=== PATIENT | female | born 1965 | race Caucasian/White ===

== ENCOUNTER → 2016-10-16 10:01 | Outpatient (CLI) | payer MEDICAID ==
[2016-05-17 15:13] VITALS: BMI 43.6
[~2016-10-16 10:01] MED LIST: CELEXA20 MG PO; COZAAR100 MG PO; CYCLOBENZAPRINE10 MG PO; FLUTICASONE PRO16 GM NASAL; FUROSEMIDE20 MG PO; GLUCOPHAGE500 MG PO; HCTZ25 MG PO; HYDROCODONE-APA1 TAB PO; NEURONTIN 400400 MG PO; OMEPRAZOLE20 M1 PO; PRAVASTATIN SOD10 MG PO; PROAIR HFA8.5 GM INH; REQUIP1 MG PO
[2016-10-16 12:45] LABS: ERYTHROCYTE SEDIMENTATION RATE 21 mm/hr (0-30)
[2016-10-17 08:18] LABS: IMMUNOGLOBULIN E 14 IU/mL (0-100)
[2016-10-17 09:19] LABS: ANA REFLEX - DIRECT Negative (Negative)
[2016-10-18 10:18] LABS: ANGIOTENSIN CONVERTING ENZYME 67 U/L (14-82)
[2016-10-20 17:08] LABS: FUNGAL - ASP FLAVUS Negative (Neg:<1:1); FUNGAL - ASP NIGER Negative (Neg:<1:1); FUNGAL - ASPER FUMIGATUS Negative (Neg:<1:1); FUNGAL - COCCIDIOIDES Negative (Neg:<1:1)
== END | disposition home or self-care (01) ==
LOC: D.RT 10:01
PROVIDERS: Internal Medicine Pulmonary Disease
DX: R51 Headache (principal); H53.9 Unspecified visual disturbance

== ENCOUNTER → 2016-10-22 08:33 | Outpatient (CLI) | payer MEDICAID ==
[2016-05-17 15:13] VITALS: BMI 43.6
[2016-10-22 09:56] LABS: ALBUMIN 3.2 g/dL (3.4-5.0); BILIRUBIN - DIRECT 0.11 mg/dL (0.00-0.30); BILIRUBIN - INDIRECT 0.23 mg/dL (0.00-1.00); BILIRUBIN - TOTAL 0.34 mg/dL (0.2-1.3); PROTEIN - SERUM 7.1 g/dL (6.4-8.2)
== END | disposition home or self-care (01) ==
LOC: D.LAB 08:33 → D.US 10:00 → D.LAB 11-23 09:45 → D.US 11-23 10:00
PROVIDERS: Internal Medicine Gastroenterology
DX: K76.0 Fatty (change of) liver, not elsewhere classified (principal)

== ENCOUNTER 2019-04-08 02:11 | Inpatient (IN) | payer MEDICAID ==
[2019-04-08] VITALS (25 sets, daily range): BP systolic 117–183; BP diastolic 51–90; BMI 51.8
[~2019-04-08] VITALS: Ht 160 cm; Wt 125.5 kg
--- NOTE | ~2019-04-08 | HEMODYNAMI ---
PATIENT:DERIC CARBALLO MEDICAL RECORD: [id number] : 63 LOCATION:[facility] ADMISSION DATE: 04/08/19 Generatedon:04/09/201913:23 Patient name: DERIC CARBALLO Patient #: [id number] SSN: D OB: 1965 Date of study: 04/09/2019 Page: Of Hemodynamic Procedure Report Patient Data Patient Demographics Procedure consent was obtained First Name: DERIC Gender: Female Last Name: HARIS : 1965 [facility] Initial: GALLO Age: 53 year(s) Patient #: [id number] Race: Unknown Additional ID: [id number] Contact details Address: [address] [place] [address] State: [place] City: [place] Zip code: [address] Past Medical History Allergies Allergen Reaction Date Comments Reported Codeine 04/08/2019 Other allergy 04/08/2019 gabapentin, blue dye Codeine 04/09/2019 Other allergy 04/09/2019 blue dye, gabapentin Admission Admission Data Admission Date: 04/08/2019 Admission Time: 6:06 Room #: D.CV04 Height (in.): 63 BSA: 2.27 (m2) Height (cm.): 160.02 BMI: 51.72 (kg/m2) Weight (lbs.): 292 Weight (kg.): 132.45 Procedure Procedure Types Cath Procedure Peripheral Cath Diagnostic Procedure Abd/Extremity Extremities Right Upper Ext. Arteriogram Procedure Description Procedure Date Procedure Date: 04/09/2019 Procedure Start Time: 13:01 Procedure Staff Name Function Joseph Chaves MD Performing Physician Raffy Ferrer RT Scrub Laurita Pierce RN Nurse Darya Anand RN Nurse Alcira Kay RT Scrub Procedure Data Cath Procedure Fluoroscopy Diagnostic fluoroscopy Total fluoroscopy Time: 2.2 time: 2.2 min min Diagnostic fluoroscopy Total fluoroscopy dose: 495 dose: 495 mGy mGy Contrast Material Contrast Material Type Amount (ml) Isovue 300 55 Entry Location Entry Primary Successful Side Size Upsize Upsize Entry Closure Succ essful Closure Location (Fr) 1 (Fr) 2 (Fr) Remarks Device Remarks Femoral Right Angio-VIP artery 6Fr Hemodynamics Rest BSA: 2.27 (m2) O2 Consumption: Estimated: 308.72 (ml/min) O2 Consumption indexed : Estimated:136 (ml/min/m) Pre Cath Intra NCS Post Cath Procedure Log Time Note 12:29:07 Patient Height : 63 inches 12:29:07 Patient Weight : 292 lbs 12:34:23 Time tracking: Regular hours (M-F 7:00 - 5:00) 12:37:20 Plan of Care:Hemodynamics will remain stable., Cardiac rhythm will remain stable., Comfort level will be maintained., Respiratory function will remain adequate., Patient/ family verbilizes understanding of procedure., Procedure tolerated without complication., Recovers from procedure without complications.. 12:37:27 Patient received from CVICU to IR On ventilator. Tansferred to table in Supine position. 12:37:44 Signed procedure consent form obtained from guardian. 12:37:55 H&P Date Dictated: 04/09/2019 Within 30 days and on chart.. 12:38:00 Family in waiting room. 12:38:04 Patient NPO since Midnight. 12:38:13 Patient allergic to Codeine 12:38:35 Patient allergic to Other allergyblue dye, gabapentin 12:39:00 Is the patient allergic to Iodine/contrast media? No. 12:39:03 Is patient on blood thinner?Yes 12:42:04 Patient diabetic? Yes. 12:42:11 If diabetic: On Metformin? No 12:42:13 If diabetic: On Metformin? No 12:42:16 - 12:42:16 ----Pre-sedation anethsthesia assessment.---- 12:42:19 Previous problem with sedation/anesthesia? No ? 12:42:22 Snore? Yes 12:42:24 Sleep apnea? Yes 12:42:26 Deviated septum? No 12:42:29 Opens mouth fully? Yes 12:42:31 Sticks out tongue? Yes 12:42:36 Airway obstruction? Yes copd 12:42:41 Dentures? No ? 12:42:44 - 12:43:13 Pre procedure: right radial pulse Doppler 12:43:32 Pre procedure: right ulnar pulse Doppler 12:44:00 IV patent on arrival in left antecubital with D5/.45%NaCl at [facility]. 12:44:15 Right groin area was prepped with betadine and draped in sterile fashio n 12:44:20 - 13:00:40 Physician arrived 13:00:41 --------ALL STOP TIME OUT------ 13:00:42 Final Timeout: patient, procedure, and site verified with staff and physician. All members of the team are in agreement. 13:01:02 Procedure started. 13:01:02 Full Disclosure recording started 13:01:14 GLIDE CATHETER 5FR Bar Gauger And Lubricator Tender H1 100cm (CG513) opened to sterile field. 13:01:15 GLIDE WIRE ANGLE 180cm ([id number]) opened to sterile field. 13:01:27 TORQUE DEVICE PLASTIC .038 ( TD01) opened to sterile field. 13:14:04 Angiography was performed. 13:15:10 ANGIOSEAL-VIP PLUS 6 FR opened to sterile field. 13:15:29 Sheath removed intact; hemostasis achieved with Angio-VIP 6Fr to the Right Femoral artery. 13:15:29 A sheath was inserted into the Right Femoral artery 13:16:50 AMPLATZ Super Stiff 75cm wire ([id number]) opened to sterile field. 13:20:10 Procedure ended.(Physican Out) 13:20:25 Fluoroscopy time 02.20 minutes. 13:20:30 Fluoroscopy dose: 495 mGy 13:20:30 Flurop Dose total: 495 13:20:51 Contrast amount:Isovue 300 55ml. 13:22:46 Procedure and supply charges have been captured, reviewed, submitted an d are correct. 13:22:56 Report given to CVICU. Device Usage Item Name Manufacture Quantity Catalog Hospital Part Current Minima l Lot# / Number Charge Number Stock Stock Serial# Code GLIDE [place] 1 [id number] [id number] 200922 5 CATHETER 5FR Scientific Bar Gauger And Lubricator Tender H1 100cm (CG513) GLIDE WIRE Terumo 1 [id number] 116036 223265 5 ANGLE 180cm (QO5055) TORQUE DEVICE [place] 1 TD01 615156 632790 694911 5 PLASTIC .038 Scientific ( TD01) ANGIOSEAL-VIP [place] 1 147597 390110 772424 702285 5 PLUS 6 FR AMPLATZ Super [place] 1 [id number] 530098 052977 618170 5 Stiff 75cm Scientific wire ([id number]) Signature Audit Cobb Stage Time Signature Unsigned Intra-Procedure 04/09/2019 Alcira Kay 1:23:53 PM RT(R) [place] [id number] [place] [address]
--- NOTE | ~2019-04-08 | HEMODYNAMI ---
PATIENT:DERIC CARBALLO MEDICAL RECORD: [id number] : 63 LOCATION:[facility] ADMISSION DATE: 04/08/19 Generatedon:04/08/201916:10 Patient name: DERIC CARBALLO Patient #: [id number] SSN: D OB: 1965 Date of study: 04/08/2019 Page: Of Hemodynamic Procedure Report Patient Data Patient Demographics Procedure consent was obtained First Name: DERIC Gender: Female Last Name: HARIS : 1965 [facility] Initial: GALLO Age: 53 year(s) Patient #: [id number] Race: Unknown Additional ID: [id number] Contact details Address: [address] [place] [address] State: [place] City: [place] Zip code: [address] Past Medical History Allergies Allergen Reaction Date Comments Reported Codeine 04/08/2019 Other allergy 04/08/2019 gabapentin, blue dye Admission Admission Data Admission Date: 04/08/2019 Admission Time: 6:06 Room #: [facility]04 Height (in.): 63 BSA: 2.27 (m2) Height (cm.): 160.02 BMI: 51.72 (kg/m2) Weight (lbs.): 292 Weight (kg.): 132.45 Procedure Procedure Types Cath Procedure Peripheral Cath Diagnostic Procedure Abd/Extremity Extremities Right Upper Ext. Arteriogram Procedure Description Procedure Date Procedure Date: 04/08/2019 Procedure Start Time: 9:25 Procedure Staff Name Function Raffy Ferrer RT Monitor Joseph Chaves MD Performing Physician aLurita Pierce RN Nurse Allan Mary CRNA Additional personnel PAULINE POOLE RT Scrub Procedure Data Cath Procedure Fluoroscopy Diagnostic fluoroscopy Total fluoroscopy Time: time: 13.1 min 13.1 min Diagnostic fluoroscopy Total fluoroscopy dose: 425 dose: 425 mGy mGy Contrast Material Contrast Material Type Amount (ml) Isovue 300 100 Entry Location Entry Primary Successful Side Size Upsize Upsize Entry Closure Succes sful Closure Location (Fr) 1 (Fr) 2 (Fr) Remarks Device Remarks Femoral Right artery Diagnostic catheters Device Type Used For End Catheter Placement Merit ULTRA BOLUS FLUSH 5Fr 90CM catheter ([id number]) Procedure Medications Medication Administration Route Dosage Heparin Flush Bag added to field 3 bags (1000units/500ml NS) Lidocaine 1% added to field 20 Fentanyl I.V. 25 mcg Versed I.V. 0.5 mg Versed I.V. 0.5 mg Hemodynamics Rest BSA: 2.27 (m2) O2 Consumption: Estimated: 228.93 (ml/min) O2 Consumption indexed : Estimated:100.85 (ml/min/m) Heart Rate: 81 (bpm) Snapshots Pre Cath Intra NCS Post Cath Vital Signs Time Heart Resp SPO2 etCO2 NIBP (mmHg) Rhythm Pain Sedation Rate (ipm) (%) (mmHg) Status Level (bpm) 9:10:12 80 16 94 55.9 150/73(109) NSR 0 (11) 10(A) , No pain 9:15:11 111 15 92 61.2 Measuring NSR 0 (11) 10(A) , No pain 9:15:44 79 11 95 62.7 125/75(95) NSR 0 (11) 10(A) , No pain 9:19:55 81 16 93 56.6 132/72(106) NSR 0 (11) 10(A) , No pain 9:24:07 80 14 92 30.9 124/73(105) NSR 0 (11) 10(A) , No pain 9:26:43 82 11 89 33.9 129/76(93) NSR 0 (11) 10(A) , No pain 9:30:59 83 13 92 60.5 126/73(93) NSR 0 (11) 10(A) , No pain 9:35:13 83 15 89 71.7 138/76(103) NSR 0 (11) 10(A) , No pain 9:39:33 86 16 82 52.1 140/70(113) NSR 0 (11) 10(A) , No pain 9:43:55 86 13 86 57.3 135/66(111) NSR 0 (11) 10(A) , No pain 9:48:11 84 16 89 67.1 145/69(100) NSR 0 (11) 10(A) , No pain 9:52:30 86 17 90 79.2 152/74(108) NSR 0 (11) 10(A) , No pain 9:56:48 88 18 82 78.5 151/74(113) NSR 0 (11) 10(A) , No pain 10:01:10 88 16 88 66.5 137/71(99) NSR 0 (11) 10(A) , No pain 10:05:30 88 15 93 57.4 124/74(95) NSR 0 (11) 10(A) , No pain 10:09:42 90 27 91 49.1 137/81(104) NSR 0 (11) 10(A) , No pain 10:14:00 92 16 70 1.5 136/76(120) NSR 0 (11) 10(A) , No pain 10:18:16 91 13 87 0 146/82(108) NSR 0 (11) 10(A) , No pain 10:22:28 93 19 89 0 137/75(102) NSR 0 (11) 10(A) , No pain 10:26:44 91 15 94 18.8 139/74(100) NSR 0 (11) 10(A) , No pain 10:30:56 90 14 96 3 132/73(94) NSR 0 (11) 10(A) , No pain 10:35:10 91 14 96 0 139/87(106) NSR 0 (11) 10(A) , No pain 10:39:18 96 0 110/58(78) NSR 0 (11) 10(A) , No pain 10:40:37 95 0 98/51(70) NSR 0 (11) 10(A) , No pain 10:42:55 96 97/54(74) NSR 0 (11) 10(A) , No pain 10:46:34 96 98/38(63) NSR 0 (11) 10(A) , No pain 10:50:34 No Cuff NSR 0 (11) 10(A) , No pain 10:54:33 No Cuff NSR 0 (11) 10(A) , No pain Medications Time Medication Route Dose Verified Delivered Reason Notes Effe ctiveness by by 9:09:28 Heparin Flush added 3 Joseph Ruiz used for Bag to bags Chaves Chaves procedure (1000units/500ml field MD VILLARREAL NS) 9:09:40 Lidocaine 1% added 20ml Joseph garland local to vial Chaves Chaves anesthetic field MD VILLARREAL 9:28:49 Fentanyl I.V. 25 Joseph Shay for mcg Chavesblaise Pierce RN sedation 9:47:51 Versed I.V. 0.5 Joseph Shay for mg Chavesblaise Pierce RN sedation 10:11:28 Versed I.V. 0.5 Joseph Shay for mg Chaves Stan TSAI sedation Procedure Log Time Note 8:58:25 Raffy Ferrer RT (R) (CV) sent for patient. Start room use. 8:58:42 Time tracking: Regular hours (M-F 7:00 - 5:00) 8:58:46 Plan of Care:Hemodynamics will remain stable., Cardiac rhythm will remain stable., Comfort level will be maintained., Respiratory function will remain adequate., Patient/ family verbilizes understanding of procedure., Procedure tolerated without complication., Recovers from procedure without complications.. 8:58:52 Patient received from ParaShoot II to IR Alert and oriented. Tansferred to table in Supine position. 8:58:59 Use device set IR Diagnostic 8:59:00 Tegaderm 4 x 4 (1626W) opened to sterile field. 8:59:01 Sterile Angiographic Pack opened to sterile field. 8:59:02 Bag Decanter () opened to sterile field. 8:59:03 ACIST Hand Control (60450) opened to sterile field. 8:59:03 ACIST Manifold (06039) opened to sterile field. 8:59:04 ACIST Syringe (89720) opened to sterile field. 8:59:07 Correct patient and procedure confirmed by team. 8:59:08 Signed procedure consent form obtained from patient. 8:59:10 ECG and BP/O2 sat monitors applied to patient. 8:59:11 Full Disclosure recording started 8:59:15 - 8:59:22 H&P Date Dictated: 04/08/2019 Within 30 days and on chart.. 8:59:24 Pre-procedure instructions explained to patient. 8:59:25 Pre-op teaching completed and patient verbalized understanding. 8:59:26 Family in waiting room. 8:59:28 Patient NPO since Midnight. 8:59:35 Is the patient allergic to Iodine/contrast media? No. 8:59:37 Is patient on blood thinner?No 8:59:40 Patient diabetic? Yes. 8:59:43 If diabetic: On Metformin? No 8:59:45 ----Pre-sedation anethsthesia assessment.---- 8:59:45 - 9:00:07 Previous problem with sedation/anesthesia? No ? 9:00:10 Snore? Yes 9:00:13 Sleep apnea? Yes 9:00:15 Deviated septum? No 9:00:18 Opens mouth fully? Yes 9:00:20 Sticks out tongue? Yes 9:00:37 Airway obstruction? Yes copd and asthma 9:00:41 Dentures? Yes ? 9:05:40 Pre procedure: right dorsailis pedis pulse Doppler 9:05:44 Pre procedure: right posterior tibial pulse Doppler 9:05:55 IV patent on arrival in left antecubital with 0.9% NaCl at [facility]. 9:05:58 Alarms reviewed by R. N. 9:05:58 Sharps counted by scrub and verified by R.N. 9:06:03 Right groin area was prepped with chlora-prep and draped in sterile fashion 9:09:06 Vital chart was started 9:09:28 Heparin Flush Bag (1000units/500ml NS) 3 bags added to field was administered by Joseph Chaves MD; used for procedure; 9:09:40 Lidocaine 1% 20ml vial added to field was administered by Joseph Chaves MD; for local anesthetic; 9:12:19 Baseline sample Acquired. 9:23:27 Vital chart was stopped 9:24:10 Physician arrived 9:24:11 Final Timeout: patient, procedure, and site verified with staff and physician. All members of the team are in agreement. 9:24:11 --------ALL STOP TIME OUT------ 9:24:13 Right groin site verified by team. 9:24:17 Maximum allowable Isovue 300 dose 300ml. Physician notified. (300ml for normal creatinines. For patients with creatinine of 1.7 or higher multiply weight(kg) x 5 divided by creatinine.) 9:24:21 Fire Safety Assessment: A--An alcohol-based skin anteseptic being used preoperatively., C--Open oxygen or nitrous oxide is being used. 9:24:25 Sedation plan: IV Moderate Sedation Medication:Versed, Fentanyl 9:25:08 Procedure started. 9:25:11 Local anesthetic to right femoral artery with Lidocaine 1% by Joseph Chaves MD.INITIAL ACCESS ONLY 9:25:26 A sheath was inserted into the Right Femoral artery 9:25:30 DOC .035 wire (S22697) opened to sterile field. 9:25:30 SHEATH 5FR [place] (SFI370) opened to sterile field. 9:25:30 PERCUTANEOUS ENTRY 19GA needle opened to sterile field. 9:25:31 TUBING Contrast Injection High Pressure (SJV459V) opened to sterile field. 9:25:34 A Merit ULTRA BOLUS FLUSH 5Fr 90CM catheter ([id number]) was advanced over the wire and used for . 9::40 Vital chart was started 9:28:49 Fentanyl 25 mcg I.V. was administered by Laurita Pierce RN; for sedation ; 9:33:26 GLIDE WIRE ANGLE 180cm (UK6468) opened to sterile field. 9:33:26 GLIDE CATHETER 5FR Portable Grinding Machine Operator H1 100cm (CG513) opened to sterile field. 9:35:34 GLIDE WIRE MERIT Angled 260cm ([id number]) opened to sterile field. 9:42:45 Cook RAABE 6FR. 90cm guide sheath opened to sterile field. 9:43:15 TORIBIO 260 wire (V99299) opened to sterile field. 9:47:51 Versed 0.5 mg I.V. was administered by Laurita Pierce RN; for sedation; 9:52:59 CHOICE PT Extra Support J 300cm guide wire ([id number]) opened to steril e field. 9:53:12 SPIDER EMBOLIC PROTECTION DEVICE 4MM ([id number]) opened to sterile field. 9:54:00 ANGIOJET 4Fr XMI Catheter ([id number]) opened to sterile field. 10:11:28 Versed 0.5 mg I.V. was administered by Laurita Pierce RN; for sedation; 10:29:44 Procedure ended.(Physican Out) 10:34:11 Fluoroscopy time 13.10 minutes. 10:34:16 Fluoroscopy dose: 425 mGy 10:34:16 Flurop Dose total: 425 10:34:20 Sharps counted by scrub and verified by R.N. 10:34:23 Insertion/operative site no bleeding no hematoma. 10:34:27 Post-op/insertion site Right Femoral artery dressed using a 4 x 4 and Tegaderm. 10:34:30 Post right femoral artery:stable 10:34:33 Post Procedure Pulses reassessed and unchanged 10:51:12 Contrast amount:Isovue 300 100ml. 10:54:32 Patient needs reinforcement of post procedure teaching. 10:54:56 Report given to CVICU. 10:55:07 Patient transfered to CVICU with Bed. 10:55:34 Vital chart was stopped 10:55:38 Full Disclosure recording stopped 16:06:16 Patient Height : 63 inches 16:06:16 Patient Weight : 292 lbs Device Usage Item Name Manufacture Quantity Catalog Number Hospital Part Current Minimal Lot# / Charge Number Stock Stock Serial# Code Tegaderm 4 x 4 3M 1 [id number] [id number] 422287 5 (1626W) Sterile Cardinal 1 [id number] 979757 078333 5 Angiographic Health Pack Bag Decanter Microtek 1 409228 11397 241555 5 () Medical Inc. ACIST Manifold Acist 1 64482 548769 988642 764808 5 (89273) Medical Systems Inc ACIST Hand Acist 1 28053 060968 291126 204388 5 Control (16918) Medical Systems Inc ACIST Syringe Acist 1 08631 212912 728821 663434 20 (16233) Medical Systems Inc PERCUTANEOUS Cook Medical 1 S00024 083090 714913 5 [id number] ENTRY 19GA needle SHEATH 5FR Terumo 1 BIJ820 305308 288242 363204 5 [place] (ZPJ313) DOC .035 wire Cook Medical 1 V49647 182239 687030 5 (F02049) TUBING Contrast Merit 1 [id number] 800175 239924 608608 5 Injection High Medical Pressure (AAG559X) Merit ULTRA Merit 1 [id number] 795184 481135 5 BOLUS FLUSH 5Fr Medical 90CM catheter ([id number]) GLIDE CATHETER [place] 1 CG513 441481 515999 5 5FR Portable Grinding Machine Operator Scientific H1 100cm (CG513) GLIDE WIRE Terumo 1 XY3398 889804 019899 625636 5 ANGLE 180cm (WS3242) GLIDE WIRE Merit 1 [id number] 510341 027333 721270 5 [id number] MERIT Angled Medical 260cm ([id number]) Cook RAABE 6FR. Cook Medical 1 O59296 900846 193063 5 90cm guide sheath TORIBIO 260 wire Cook Medical 1 E41744 372389 84343 918851 5 (K32313) CHOICE PT Extra [place] 1 [id number] 806423 661483 307438 5 [id number] Support J 300cm Scientific guide wire ([id number]) SPIDER EMBOLIC Medtronic 1 [id number]-155-320 039708 975952 5 PROTECTION DEVICE 5MM ([id number]) ANGIOJET 4Fr [place] 1 211473-441 967195 664307 561514 1 [facility] Catheter to be ([id number]) Signature Audit [place] Stage Time Signature Unsigned Intra-Procedure 04/08/2019 Raffy Akbar [place] RT 10:55:27 AM [place] RT (R) (CV) 04/08/2019 (R) (CV) 4:06:01 PM Intra-Procedure 04/08/2019 Raffy 4:10:08 PM [place] RT (R) (CV) Signatures Monitor : Raffy Signature : [place] RT Date : Time : [place] [address] [place] [address]
--- NOTE | ~2019-04-08 | HEMODYNAMI ---
PATIENT:DERIC CARBALLO MEDICAL RECORD: [id number] : 63 [facility] AD[facility] DATE: 04/08/19 Generatedon:04/08/201915:49 Patient name: DERIC CARBALLO Patient #: [id number] SSN: D OB: 1965 Date of study: 04/08/2019 Page: Of Hemodynamic Procedure Report Patient Data Patient Demographics Procedure consent was obtained First Name: DERIC Gender: Female Last Name: HARIS : 1965 [facility] Initial: GALLO Age: 53 year(s) Patient #: [id number] Race: Unknown Additional ID: [id number] Contact details Address: [address] [place] [address] State: [place] City: [place] Zip code: [address] Past Medical History Allergies Allergen Reaction Date Comments Reported Codeine 04/08/2019 Other allergy 04/08/2019 gabapentin, blue dye Admission Admission Data Admission Date: 04/08/2019 Admission Time: 6:06 Room #: [facility]04 Height (in.): 63 BSA: 2.27 (m2) Height (cm.): 160.02 BMI: 51.72 (kg/m2) Weight (lbs.): 292 Weight (kg.): 132.45 Procedure Procedure Types Cath Procedure Peripheral Cath Diagnostic Procedure Abd/Extremity Extremities Right Upper Ext. Arteriogram Procedure Description Procedure Date Procedure Date: 04/08/2019 Procedure Start Time: 15:27 Procedure Staff Name Function Joseph Chaves MD Performing Physician Alcira Kay RT Garnetter Darya Anand RN Nurse Raffy Ferrer RT Scrub Procedure Data Cath Procedure Fluoroscopy Diagnostic fluoroscopy Total fluoroscopy Time: 0.6 time: 0.6 min min Diagnostic fluoroscopy Total fluoroscopy dose: 27 dose: 27 mGy mGy Contrast Material Contrast Material Type Amount (ml) Isovue 300 35 Procedure Medications Medication Administration Route Dosage Heparin Flush Bag added to field 1 bags (1000units/500ml NS) Hemodynamics Rest BSA: 2.27 (m2) O2 Consumption: Estimated: 219.97 (ml/min) O2 Consumption indexed : Estimated:96.9 (ml/min/m) Heart Rate: 71 (bpm) Snapshots Pre Cath Intra NCS Post Cath Vital Signs Time Heart Resp SPO2 etCO2 NIBP (mmHg) Rhythm Pain Sedation Rate (ipm) (%) (mmHg) Status Level (bpm) 15:13:21 69 19 100 0 Measuring NSR 0 (11) 10(A) , No pain 15:14:12 68 19 100 0 161/84(116) NSR 0 (11) 10(A) , No pain 15:18:32 67 30 100 0 166/92(125) NSR 0 (11) 10(A) , No pain 15:22:58 68 19 100 0 170/92(120) NSR 0 (11) 10(A) , No pain 15:27:29 68 19 100 0 169/88(122) NSR 0 (11) 10(A) , No pain 15:31:55 68 15 100 0 172/91(127) NSR 0 (11) 10(A) , No pain 15:36:25 66 19 100 0 165/82(112) NSR 0 (11) 10(A) , No pain 15:40:52 66 19 100 0 171/94(115) NSR 0 (11) 10(A) , No pain 15:45:18 67 19 100 0 170/94(113) NSR 0 (11) 10(A) , No pain Medications Time Medication Route Dose Verified Delivered Reason Notes Effec tiveness by by 15:27:21 Heparin Flush added 1 Joseph Ruiz used for Bag to bags Chaves Chaves procedure (1000units/500ml field MD VILLARREAL NS) Procedure Log Time Note 15:09:38 Patient Height : 63 inches 15:09:43 Patient Weight : 292 lbs 15:10:22 Time tracking: Regular hours (M-F 7:00 - 5:00) 15:11:06 Patient received from CVICU to IR On ventilator. Tansferred to table in Supine position. 15:11:09 Correct patient and procedure confirmed by team. 15:11:30 ECG and BP/O2 sat monitors applied to patient. 15:11:32 Vital chart was started 15:11:34 Baseline sample Acquired. 15:11:35 Full Disclosure recording started 15:11:45 Signed procedure consent form obtained from patient. 15:12:02 - 15:12:09 H&P Date Dictated: 04/08/2019 Within 30 days and on chart.. 15:12:11 Pre-procedure instructions explained to patient. 15:12:11 Pre-op teaching completed and patient verbalized understanding. 15:12:14 Family in waiting room. 15:12:16 Patient NPO since Midnight. 15:12:35 Patient allergic to Codeine 15:13:07 Patient allergic to Other allergygabapentin, blue dye 15:13:11 Is the patient allergic to Iodine/contrast media? No. 15:13:14 Is patient on blood thinner?Yes 15:13:16 Patient diabetic? Yes. 15:13:19 If diabetic: On Metformin? No 15:13:21 - 15:13:22 ----Pre-sedation anethsthesia assessment.---- 15:13:51 Previous problem with sedation/anesthesia? No ? 15:14:02 Snore? Yes 15:14:19 Sleep apnea? Yes 15:14:33 Deviated septum? No 15:14:36 Opens mouth fully? Yes 15:14:39 Sticks out tongue? Yes 15:14:53 Airway obstruction? Yes copd 15:14:58 Dentures? No ? 15:15:06 Pre procedure: right radial pulse Doppler 15:15:11 Pre procedure: right ulnar pulse Doppler 15:15:28 Pre procedure: right dorsailis pedis pulse Doppler 15:15:36 Physician arrived 15:15:44 IV patent on arrival in left antecubital with D5/.45%NaCl at [facility]. 15:15:51 Right groin area was prepped with betadine and draped in sterile fashio n 15:15:55 - 15:15:59 Use device set IR Diagnostic 15:16:01 Tegaderm 4 x 4 (1626W) opened to sterile field. 15:16:02 Sterile Angiographic Pack opened to sterile field. 15:16:03 Bag Decanter () opened to sterile field. 15:16:13 Final Timeout: patient, procedure, and site verified with staff and physician. All members of the team are in agreement. 15:16:14 - 15:17:31 Procedure started. 15:27:21 Heparin Flush Bag (1000units/500ml NS) 1 bags added to field was administered by Joseph Chaves MD; used for procedure; 15:27:53 Angiography was performed. 15:31:52 TORIBIO 260 wire ([id number]) opened to sterile field. 15:32:02 SHEATH 6FR [place] ([id number]) opened to sterile field. 15:36:47 SUTURE ETHILON 2-0 BLK MONO FS opened to sterile field. 15:36:56 Tegaderm 6 x 8 (1628) opened to sterile field. 15:37:19 Contrast amount:Isovue 300 35ml. 15:37:24 Procedure ended.(Physican Out) 15:37:49 Fluoroscopy dose: 27 mGy 15:37:49 Flurop Dose total: 27 15:39:11 Fluoroscopy time 00.60 minutes. 15:39:23 Procedure and supply charges have been captured, reviewed, submitted an d are correct. 15:48:44 Vital chart was stopped 15:48:46 Report given to CVICU. 15:48:52 Patient transfered to CVICU with Bed. Device Usage Item Name Manufacture Quantity Catalog Hospital Part Current Minimal Lot# / Number Charge Number Stock Stock Serial# Code Tegaderm 4 x 3M 1 [id number] 5 4 (1626W) Sterile Cardinal 1 [id number] [id number] 384952 5 Angiographic Health Pack Bag Decanter Microtek 1 2001S 187926 85381 [id number] 5 (2001S) [employer] Inc[employer] TORIBIO 260 [employer] 1 [id number] 674009 40178 855338 5 [id number] wire ([id number]) SHEATH 6FR Terumo 1 [id number] 877992 555766 556808 40 [place] (QIH580) SUTURE Ethicon 1 [id number] 466307 5 ETHILON 2-0 BLK MONO FS Tegaderm 6 x 3M 1 1628 265024 341016 5 8 (1628) Signature Audit [place] Stage Time Signature Unsigned Intra-Procedure 04/08/2019 Alcira Kay 3:49:15 PM RT(R) [facility] [address] [place] [address]
[2019-04-08] MEDS ORDERED: INCRUSE ELLI62.5 MCG INH (02:18)
[2019-04-08] MEDS ORDERED: ADVAIR 250/501 DISK INH (02:18)
[2019-04-08] MEDS ORDERED: TESSALON PERLE100 MG PO (02:19)
[2019-04-08 03:03] LABS: BASOPHILS 0.2 % (0-2); EOSINOPHILS 2.2 % (0-7); HEMATOCRIT 45.3 % (36.0-48.0); HEMOGLOBIN 13.7 g/dL (12-16); IMMATURE GRANULOCYTES 0.3 % (0-5); LYMPHOCYTES 22.1 % (15-50); MCH 25.6 pg (26.0-34.0); MCHC 30.2 g/dL (31.0-37.0); MCV 84.5 fL (80.0-100.0); MEAN PLATELET VOLUME 8.4 fL (7.4-10.4); MONOCYTES 7.7 % (2-11); NEUTROPHILS 67.5 % (40-80); PLATELET COUNT 248 10x3/uL (130-400); RBC 5.36 10x6/uL (4.00-5.40); RDW 18.2 % (11.5-14.5); WBC 12.1 10x3/uL (4.8-10.8)
[2019-04-08 03:17] LABS: ALKALINE PHOSPHATASE 153 U/L (46-116); ALT (SGPT) 30 U/L (10-68); BILIRUBIN - TOTAL 0.38 mg/dL (0.2-1.3); CALC OSMOLALITY 279 mosm/kg (275-300); CALCIUM 8.5 mg/dL (8.5-10.1); CARBON DIOXIDE 36.4 mmol/L (21.0-32.0); CHLORIDE - SERUM 99 mmol/L (98-107); CREATININE - SERUM 0.8 mg/dL (0.6-1.3); PROTEIN - SERUM 7.2 g/dL (6.4-8.2); SODIUM 137 mmol/L (136-145); UREA NITROGEN 9 mg/dL (7-18); eGFR NON AFRICAN AMERICAN 79 mL/min (90-120)
[2019-04-08 03:19] LABS: GLUCOSE 232 mg/dL (74-106)
[2019-04-08 03:47] LABS: APTT 28.5 SECONDS (22.8-39.4); INR 1.05 (0.85-1.17); PROTIME 13.2 SECONDS (11.6-15.0)
--- NOTE | 2019-04-08 07:18 | NUR ---
REPORT RECIEVED FROM EULALIO CLAY FROM THE ER. OBED IS TO REASSESS THE MORPHINE AND CHECK THE PATIENTS BLOOD SUGAR AND THEN HAVE THE PATIENT BROUGHT TO THE ROOM.
--- NOTE | 2019-04-08 13:18 | NUR ---
1100 RECEIVED IN BED BY IR STAFF. INTUBATED AND SEDATED. L FOREARM AND L HAND PERIPHERAL WITH NS, HEPARIN, AND PROPOFOL. R RADIAL PULSE UNABLE TO PALPATE OR DOPPLER. R GROIN SHEATH WITH CATH FLOW INFUSING. SITE SOFT, NO SIGNS OF BLEEDING OR HEMATOMA. RLE PULSES PALPABLE AND DOPPLERED. 1200 DR QUINTERO AND ERLIN AWARE OF CONSULTS. 1230 OG TUBE PLACED TO LIWS VERIFIED WITH AUSCULTATION. QUIGLEY PLACED WITH STERILE TECHNIQUE X1 ATTEMPT. YELLOW URINE RETURNED. 1300 FAMILY HERE AND UPDATED BY DR QUINTERO. DENIES QUESTIONS.
[2019-04-08 13:42] LABS: BASOPHILS 0.2 % (0-2); EOSINOPHILS 2.5 % (0-7); HEMOGLOBIN 13.8 g/dL (12-16); IMMATURE GRANULOCYTES 0.5 % (0-5); MCH 25.1 pg (26.0-34.0); MCHC 29.4 g/dL (31.0-37.0); MCV 85.5 fL (80.0-100.0); MEAN PLATELET VOLUME 8.7 fL (7.4-10.4); MONOCYTES 9.4 % (2-11); NEUTROPHILS 59.4 % (40-80); PLATELET COUNT 241 10x3/uL (130-400); RDW 18.3 % (11.5-14.5)
[2019-04-08 13:47] LABS: APTT 28.4 SECONDS (22.8-39.4); INR 1.05 (0.85-1.17); PROTIME 13.2 SECONDS (11.6-15.0)
--- NOTE | 2019-04-08 15:03 | NUR ---
PT TO IR WITH IR STAFF AND RT
[2019-04-08 17:13] LABS: BASOPHILS 0.1 % (0-2); EOSINOPHILS 0.2 % (0-7); HEMATOCRIT 45.6 % (36.0-48.0); HEMOGLOBIN 13.8 g/dL (12-16); IMMATURE GRANULOCYTES 0.3 % (0-5); LYMPHOCYTES 7.3 % (15-50); MCH 25.5 pg (26.0-34.0); MCHC 30.3 g/dL (31.0-37.0); MCV 84.1 fL (80.0-100.0); MEAN PLATELET VOLUME 8.7 fL (7.4-10.4); MONOCYTES 1.9 % (2-11); NEUTROPHILS 90.2 % (40-80); PLATELET COUNT 216 10x3/uL (130-400); RBC 5.42 10x6/uL (4.00-5.40); RDW 18.3 % (11.5-14.5)
[2019-04-08 17:22] LABS: APTT 27.8 SECONDS (22.8-39.4); INR 1.07 (0.85-1.17); PROTIME 13.4 SECONDS (11.6-15.0)
--- NOTE | 2019-04-08 17:30 | NUR ---
PER DR KERN HEPARIN GTT MOVED TO PIV IN L HAND AND PRESSURE BAG WITH HEPARIN PLACED TO R GROIN FOR A LINE, GOOD WAVEFORM, NO HEPARIN IN PICC LINE AND TO START HEPARIN PROTOCOL WITH RESULTS OF PTT FROM 1700. DAUGHTER TO BE IN UNIT AT 0900 IN AM TO SPEAK WITH DR KERN PER DR KERN AND DAUGHTER AWARE.
--- NOTE | 2019-04-08 18:00 | NUR ---
RETURNED TO ROOM 1615
--- NOTE | 2019-04-08 18:07 | EC ---
PATIENT:DERIC CARBALLO DATE OF SERVICE: 04/08/19 SEX: F MEDICAL RECORD: [id number] DATE OF : 63 LOCATION:[place] [address] AGE OF PATIENT: 53 ADMISSION DATE: 04/08/19 REFERRING PHYSICIAN: INTERPRETING PHYSICIAN: JAILYN ZHANG MD ECHOCARDIOGRAM REPORT ECHO CHARGES 4 ECHO COMPLETE Date: 04/08/19 CLINICAL DIAGNOSIS: ASSESS FOR LEFT ATRIAL CLOT ECHOCARDIOGRAPHIC MEASUREMENTS (adult normal given) AC root (d.<3.7cm) 3.2 cm LV Septum d (<1.2 cm> 1.2 cm Valve Excursion 1.9 cm LV Septum (systole) 1.5 cm Left Atria (s.<4.0cm> 3.8 cm LVPW d(<1.2cm) 1.8 cm RV (d.<2.3cm) 2.9 cm LVPW (sytole) 1.9 cm LV diastole(<5.6CM) 5.1 cm MV E-F(>70mm/sec) cm LV systole 3.6 cm LVOT Diameter 2.0 cm MV exc.(>10mm) 1.9 cm Est.ejection fraction (50-75%) % DOPPLER: LVIT cm/sec A 63.0 cm/sec E 93.0 cm/sec LA cm/sec RVSP mmHg LVOT 102 cm/sec AOP1/2T 15 m/s Asc. Ao 128 cm/sec RVOT 58 cm/sec RA cm/sec PA 79 cm/sec AV Gradient Peak 6.59 mmHg AV Mean 3.39 mmHg AV Area 2.4 cm MV Gradient Peak 5.52 mmHg MV Mean 2013 mmHg MV Area cm COMMENTS: Forklift Operator: Nannette MARK Mental Tester: 1 Dr. Zhnag TAPE# PACS Pericardial Effusion N DATE OF SERVICE: 04/08/2019 FINDINGS: 1. Left ventricular chamber size is within normal limits. Left ventricular systolic function is normal. Overall ejection fraction is estimated at 55% to 60%. 2. Left atrium, right atrium, and right ventricular chamber sizes are within normal limit. 3. Valvular structures have normal structure and motion. 4. Doppler interrogation reveals no significant valvular insufficiency or ECHOCARDIOGRAM REPORT [id number] DERIC CARBALLO stenosis. Pulmonary systolic pressure is estimated at 15 mmHg. 5. No cardiac source of emboli. TRANSINT:[id number] Voice Confirmation ID: [id number] DOCUMENT ID: [id number] JAILYN ZHANG MD at 1807 CC: [id number] DICTATION DATE: 04/08/19 162 MEAT COUNTER WORKER: 04/08/19 1728 ADM IN [facility] [address] [place] [address]
--- NOTE | 2019-04-08 19:20 | NUR ---
PT RECEIVED ON VENT AND SEDATED, TOLERATING WELL AT THIS TIME. VSS. QUIGLEY PATENT WITH CONCENTRATED URINE NOTED. PICC TO LEFT UPPER ARM. DRESSING TO RIGHT GROIN C/D/I WITH SHEETH TO A-LINE. PULSES DOPPLERED. WILL CONTINUE TO OBSERVE.
--- NOTE | 2019-04-08 22:20 | NUR ---
PT CONTINUES VENT WITH SEDATION WITH NO CHANGES NOTED TO VENT OR SEDATION MEDICATION. HEPARIN CONTINUES TO LEFT HAND. NO S/S OF DISTRESS. WILL CONTINUE TO OBSERVE.
[2019-04-08 23:36] LABS: HEMATOCRIT 45.6 % (36.0-48.0); HEMOGLOBIN 13.8 g/dL (12-16); LYMPHOCYTES 9.6 % (15-50); MCH 25.1 pg (26.0-34.0); MCHC 30.3 g/dL (31.0-37.0); MCV 83.1 fL (80.0-100.0); MEAN PLATELET VOLUME 8.2 fL (7.4-10.4); NEUTROPHILS 89.1 % (40-80); PLATELET COUNT 288 10x3/uL (130-400); RBC 5.49 10x6/uL (4.00-5.40); RDW 17.6 % (11.5-14.5); WBC 10.7 10x3/uL (4.8-10.8)
--- NOTE | 2019-04-08 23:38 | NUR ---
PT CONTINUES VENT WITH SEDATION. REASSESSMENT COMLETED SEE FLOW SHEET. CBC AND PT/INR DRAWN AND SENT TO LAB, WAITING RESULTS. NO S/S OF DISTRESS. WILL CONTINUE TO OBSERVE.
[2019-04-08 23:49] LABS: APTT 25.9 SECONDS (22.8-39.4); INR 1.06 (0.85-1.17); PROTIME 13.3 SECONDS (11.6-15.0)
[2019-04-09] VITALS (28 sets, daily range): BP systolic 95–159; BP diastolic 52–83; BMI 51.7
--- NOTE | 2019-04-09 02:09 | NUR ---
PT RECEIVED CHG BATH GIVEN. LINENS CHANGED. ASSIST X3 NURSES TO MAINTAIN STRAIGHT LEGS DUE TO RIGHT GROIN SHEATH. PT TOLERATED WELL. WILL CONTINUE TO OBSERVE.
--- NOTE | 2019-04-09 03:25 | NUR ---
REASSESSMENT COMPLETED, SEE FLOW SHEET. WILL CONTINUE TO OBSERVE.
[2019-04-09 05:21] LABS: BASOPHILS 0 % (0-2); EOSINOPHILS 0 % (0-7); HEMATOCRIT 43.5 % (36.0-48.0); HEMOGLOBIN 13.5 g/dL (12-16); IMMATURE GRANULOCYTES 0.4 % (0-5); LYMPHOCYTES 7.5 % (15-50); MCH 25.4 pg (26.0-34.0); MCV 81.8 fL (80.0-100.0); MEAN PLATELET VOLUME 8.4 fL (7.4-10.4); MONOCYTES 2.1 % (2-11); RBC 5.32 10x6/uL (4.00-5.40); RDW 18.1 % (11.5-14.5)
[2019-04-09 05:28] LABS: PLATELET COUNT 211 10x3/uL (130-400); WBC 13.6 10x3/uL (4.8-10.8)
[2019-04-09 05:41] LABS: APTT 26.9 SECONDS (22.8-39.4); INR 1.05 (0.85-1.17); PROTIME 13.2 SECONDS (11.6-15.0)
[2019-04-09 05:50] LABS: ALBUMIN 2.8 g/dL (3.4-5.0); ALKALINE PHOSPHATASE 133 U/L (46-116); ALT (SGPT) 31 U/L (10-68); BILIRUBIN - TOTAL 0.39 mg/dL (0.2-1.3); CALCIUM 8.9 mg/dL (8.5-10.1); CARBON DIOXIDE 29.1 mmol/L (21.0-32.0); CHLORIDE - SERUM 98 mmol/L (98-107); CREATININE - SERUM 0.8 mg/dL (0.6-1.3); GLUCOSE 217 mg/dL (74-106); MAGNESIUM - SERUM 1.9 mg/dL (1.8-2.4); PROTEIN - SERUM 6.6 g/dL (6.4-8.2); SODIUM 135 mmol/L (136-145); eGFR NON AFRICAN AMERICAN 79 mL/min (90-120)
[2019-04-09 05:58] LABS: CALC OSMOLALITY 276 mosm/kg (275-300); UREA NITROGEN 12 mg/dL (7-18)
--- NOTE | 2019-04-09 07:52 | NUR ---
LYING IN BED ON VENT AT THIS TIME. NO ACUTE DISTRESS NOTED. VSS. LS DIMINISHED. OGT TO LOW INT SUCTIONING. RT GROIN SHEATH SITE CDI NO S/S EDEMA, REDNESS, DRAINAGE. PT OPENS EYES WHEN SPOKEN TO. WILL CONTINUE PLAN OF CARE.
--- NOTE | 2019-04-09 09:56 | NUR ---
WILL ADMIN DALIRESP WHEN RECIEVE FROM PHARMACY.
--- NOTE | 2019-04-09 09:57 | NUR ---
PTS DAUGHTER AT BEDSIDE, HAS SPOKEN WITH PHYSICIAN, DENIES ANY QUESTIONS OR CONCERNS REGARDING PROCEDURE FOR TODAY. VSS. WILL CONTINUE PLAN OF CARE.
--- NOTE | 2019-04-09 10:50 | NUR ---
HOLDING PO MEDS UNTIL AFTER PROCEDURE.
--- NOTE | 2019-04-09 10:58 | NUR ---
IV TO LT HAND PATENT, ALSO ABLE TO DRAW BLOOD WHEN ASSESSING ITS PATENCY, HEPARIN GTT CURRENTLY RUNNING THROUGH IT. NO S/S INFILTRATION OR LEAKING. NO ACUTE DISTRESS NOTED. WILL CONTINUE PLAN OF CARE.
[2019-04-09 11:33] LABS: BASOPHILS 0 % (0-2); EOSINOPHILS 0 % (0-7); HEMATOCRIT 42.1 % (36.0-48.0); IMMATURE GRANULOCYTES 0.4 % (0-5); LYMPHOCYTES 8.5 % (15-50); MCH 25.4 pg (26.0-34.0); MCHC 30.9 g/dL (31.0-37.0); MCV 82.2 fL (80.0-100.0); MEAN PLATELET VOLUME 8.6 fL (7.4-10.4); MONOCYTES 4.9 % (2-11); NEUTROPHILS 86.2 % (40-80); PLATELET COUNT 224 10x3/uL (130-400); RBC 5.12 10x6/uL (4.00-5.40); WBC 16.8 10x3/uL (4.8-10.8)
[2019-04-09 11:42] LABS: APTT 31.1 SECONDS (22.8-39.4); INR 1.07 (0.85-1.17); PROTIME 13.4 SECONDS (11.6-15.0)
--- NOTE | 2019-04-09 11:51 | NUR ---
WBC INCREASED TODAY FROM 13.6 AT [address] PAEZ NURSE NOTIFIED OF THIS.
--- NOTE | 2019-04-09 12:25 | NUR ---
LEFT WITH IR AT THIS TIME WITH IR NURSING STAFF AND RESPIRATORY THERAPY. ON MOBILE VENT MONITORED ON MOBILE MONITOR. FAMILY AT BEDSIDE. NO ACUTE DISTRESS NOTED. VSS. PULSES PRESENT TO ALL EXTREMITIES.
--- NOTE | 2019-04-09 13:37 | NUR ---
RETURNED FROM IR AT THIS TIME. RT GROIN SITE CDI. PERIPHERAL PULSES PALPABLE. NO ACUTE DISTRESS NOTED. WILL CONTINUE PLAN OF CARE.
--- NOTE | 2019-04-09 13:51 | NUR ---
ICE PLACED TO PUNCTURE SITE.
--- NOTE | 2019-04-09 14:07 | NUR ---
DR DOWNING PAGED REGARDING CONSULT.
--- NOTE | 2019-04-09 14:08 | NUR ---
DR DOWNING NOTIFIED OF CONSULT.
--- NOTE | 2019-04-09 16:20 | NUR ---
LYING IN BED ON VENT AT THIS TIME. NO ACUTE DISTRESS NOTED. FAMILY AT BEDSIDE. PT TURNED Q2H. ORAL CARE PROVIDED Q2H. RT LEG TO BE KEPT STRAIGHT FOR 4 HOURS PER ORDERS. VSS. WILL CONTINUE PLAN OF CARE.
[2019-04-09 17:31] LABS: BASOPHILS 0.1 % (0-2); EOSINOPHILS 0 % (0-7); HEMATOCRIT 41.7 % (36.0-48.0); HEMOGLOBIN 12.8 g/dL (12-16); IMMATURE GRANULOCYTES 0.3 % (0-5); LYMPHOCYTES 6.6 % (15-50); MCH 25.2 pg (26.0-34.0); MCHC 30.7 g/dL (31.0-37.0); MCV 82.1 fL (80.0-100.0); PLATELET COUNT 234 10x3/uL (130-400); RBC 5.08 10x6/uL (4.00-5.40); RDW 18.1 % (11.5-14.5); WBC 17.2 10x3/uL (4.8-10.8)
[2019-04-09 17:34] LABS: INR 1.06 (0.85-1.17); PROTIME 13.3 SECONDS (11.6-15.0)
--- NOTE | 2019-04-09 17:38 | MORECARE ---
CASE MANAGEMENT DISCHARGE SUMMARY PATIENT: DERIC CARBALLO UNIT: [id number] ADM DATE: 04/08/19 AGE: 53 : 63 SEX: F ROOM/BED: [facility] AUTHOR: LUDWIG KILLIAN PHYSICIAN: REFERRING PHYSICIAN: AP DANIELSON MD DATE OF SERVICE: 04/09/19 Discharge Plan Patient Name: DERIC CARBALLO [facility] [facility] 1965 Planned Disposition: Anticipated Discharge Date: Discharge Date: Expected LOS: Initial Reviewer: [email or web address] Initial Review Date: 04/08/2019 Generated: 04/09/19 6:38 pm DCPIA - Discharge Planning Initial Assessment Updated by [email or web address]: Linda Todd on 04/09/19 5:38 pm * How many steps to enter\exit or inside your home? * PCP [facility] * [facility] * Preadmission Environment Home Alone * ADLs Independent * Other Equipment HOME 02 (NO PORTABLE), NEBULIZER * List name and contact numbers for known caregivers / representatives who currently or will assist patient after discharge: JARON MICHELLE - [facility]- [phone] * Verbal permission to speak to the caregivers and representatives has been obtained from the patient. N/A * Community resources currently utilized None * Additional services required to return to the preadmission environment? No * Can the patient safely return to the preadmission environment? Yes * Has this patient been hospitalized within the prior 30 days at any hospital? No Patient Name: DERIC CARBALLO Page [phone] at 1738 All edits/amendments must be made on the electronic document DICTATION DATE: 04/09/191737 TRAINING TECHNICIAN: LAVON 04/09/191737 RPT#: [id number] MO DATE: STATUS: ADM IN [facility] [address] [place] [address] END OF REPORT
--- NOTE | 2019-04-09 17:45 | MORECARE ---
CASE MANAGEMENT DISCHARGE SUMMARY PATIENT: DERIC CARBALLO UNIT: [id number] ADM DATE: 04/08/19 AGE: 53 : 63 SEX: F [facility] AUTHOR: CONSTANTIN,DOC PHYSICIAN: REFERRING PHYSICIAN: AP DANIELSON MD DATE OF SERVICE: 04/09/19 Discharge Plan Patient Name: DERCI CARBALLO Facility: [facility]:[place] : 1965 Planned Disposition: Anticipated Discharge Date: Discharge Date: Expected LOS: Initial Reviewer: [email or web address] Initial Review Date: 04/08/2019 Generated: 04/09/19 6:45 pm Comments DCP- Discharge Planning Updated by [email or web address]: Linda Todd on 04/09/19 4:[address] Patient Name: DERIC CARBALLO Admission Status: ER Accout number: [id number] Admission Date: 04-08-2019 : 1965 Admission Diagnosis: Attending: AP DANIELSON Current LOS: 1 Anticipated DC Date: Planned Disposition: Primary Insurance: MEDICAID [place] Discharge Planning Comments: CM met with patient's daughter Starla to complete initial dc planning assessment. Patient is currently sedated and on vent. CM educated Starla on the CM role and verbal consent given by patient to complete assessment. Patient lives at home alone in a camper where she is independent with her care. At discharge patient plans to return home and feels this is a safe discharge. CM discussed availability of home health, rehab services, and medical equipment. Her daughter will be her courier driver home. Patient has a nebulizer and home o2 (uncertain of company) Starla denied known discharge needs at this time. CM will continue to follow and will assist as needed with dc plans/needs. System Manager: Linda Todd DCPIA - Discharge Planning Initial Assessment Updated by [email or web address]: Linda Todd on 04/09/19 5:38 pm * How many steps to enter\exit or inside your home? * PCP [facility]IA * [facility] * Preadmission Environment Home Alone * ADLs Independent * Other Equipment HOME 02 (NO PORTABLE), NEBULIZER * List name and contact numbers for known caregivers / representatives who currently or will assist patient after discharge: JARON Navarro DAUGHTER- [phone] * Verbal permission to speak to the caregivers and representatives has been obtained from the patient. N/A * Community resources currently utilized None * Additional services required to return to the preadmission environment? No * Can the patient safely return to the preadmission environment? Yes * Has this patient been hospitalized within the prior 30 days at any hospital? No Last DP export: 04/09/19 4:38 p Patient Name: DERIC CARBALLO Page [phone] at 1741 All edits/amendments must be made on the electronic document DICTATION DATE: 04/09/191743 FRAME WELDER CARGO UTILITY TRAILERS: LAVON 04/09/191743 RPT#: [id number] DC DATE: STATUS: [facility] [address] [place] [address] END OF REPORT
--- NOTE | 2019-04-09 17:46 | NUR ---
PT HAS BEEN LYING WITH RT LEG STRAIGHT/LYING FLAT FOR THE LAST 4 HOURS PER ORDERS. REPOSITIONING PROVIDED Q2H ORAL CARE PROVIDED Q2H. PERIPERAL PULSES PALPABLE. NO ACUTE DISTRESS NOTED. VSS. WILL CONTINUE PLAN OF CARE.
--- NOTE | 2019-04-09 19:00 | NUR ---
ASSESSMENT COMPLETE. VS STABLE. NO VISUAL CUES OF DISTRESS NOTED. WILL CONTINUE TO MONTIOR.
--- NOTE | 2019-04-09 21:00 | NUR ---
VS STABLE. NO VISUAL CUES OF DISTRESS NOTED. WILL CONTINUE TO MONTIOR.
--- NOTE | 2019-04-09 23:00 | NUR ---
VS STABLE. NO VISUAL CUES OF DISTRESS NOTED. WILL CONTINUE TO MONTIOR.
[2019-04-09 23:02] LABS: BASOPHILS 0.1 % (0-2); EOSINOPHILS 0 % (0-7); HEMATOCRIT 41.7 % (36.0-48.0); HEMOGLOBIN 12.7 g/dL (12-16); IMMATURE GRANULOCYTES 0.3 % (0-5); MCH 24.9 pg (26.0-34.0); MCHC 30.5 g/dL (31.0-37.0); MCV 81.6 fL (80.0-100.0); MEAN PLATELET VOLUME 8.8 fL (7.4-10.4); MONOCYTES 4.3 % (2-11); NEUTROPHILS 90.3 % (40-80); PLATELET COUNT 228 10x3/uL (130-400); RBC 5.11 10x6/uL (4.00-5.40); RDW 18.1 % (11.5-14.5); WBC 17.9 10x3/uL (4.8-10.8)
[2019-04-09 23:15] LABS: APTT 33.5 SECONDS (22.8-39.4); INR 1.02 (0.85-1.17); PROTIME 12.9 SECONDS (11.6-15.0)
[2019-04-10] VITALS (24 sets, daily range): BP systolic 109–156; BP diastolic 58–79
--- NOTE | 2019-04-10 | NUR ---
VS STABLE. NO VISUAL CUES OF DISTRESS NOTED. WILL CONTINUE TO MONTIOR.
[2019-04-10 05:47] LABS: BASOPHILS 0.1 % (0-2); EOSINOPHILS 0 % (0-7); HEMATOCRIT 41.1 % (36.0-48.0); HEMOGLOBIN 12.7 g/dL (12-16); IMMATURE GRANULOCYTES 0.3 % (0-5); LYMPHOCYTES 5.7 % (15-50); MCHC 30.9 g/dL (31.0-37.0); MCV 80.9 fL (80.0-100.0); MONOCYTES 3.5 % (2-11); NEUTROPHILS 90.4 % (40-80); PLATELET COUNT 224 10x3/uL (130-400); RBC 5.08 10x6/uL (4.00-5.40); RDW 18.4 % (11.5-14.5); WBC 18.8 10x3/uL (4.8-10.8)
--- NOTE | 2019-04-10 06:00 | NUR ---
VS STABLE. NO VISUAL CUES OF DISTRESS NOTED. WILL CONTINUE TO MONTIOR.
[2019-04-10 06:25] LABS: ALBUMIN 2.7 g/dL (3.4-5.0); ALKALINE PHOSPHATASE 112 U/L (46-116); ALT (SGPT) 28 U/L (10-68); CALCIUM 8.7 mg/dL (8.5-10.1); CARBON DIOXIDE 23.8 mmol/L (21.0-32.0); CHLORIDE - SERUM 97 mmol/L (98-107); CREATININE - SERUM 0.7 mg/dL (0.6-1.3); GLUCOSE 248 mg/dL (74-106); PROTEIN - SERUM 6.4 g/dL (6.4-8.2); SODIUM 130 mmol/L (136-145); eGFR NON AFRICAN AMERICAN > 90 mL/min (90-120)
[2019-04-10 06:27] LABS: CALC OSMOLALITY 269 mosm/kg (275-300); POTASSIUM - SERUM 4.8 mmol/L (3.5-5.1); UREA NITROGEN 16 mg/dL (7-18)
--- NOTE | 2019-04-10 07:00 | NUR ---
PT RESTING IN BED SEDATED ON VENTILATOR WITH PROPOFOL AND FENTANYL. VENTILATOR PER ORDERED SETTINGS. LEFT UPPER ARM PICC LINE. VSS. ALL PULSES PALPABLE. WILL CONTINUE TO MONITOR
--- NOTE | 2019-04-10 09:00 | NUR ---
PT FAMILY IN ROOM VISITING WITH PATIENT. FAMILY GAVE PATIENT FULL BATH AND SHAVED PATIENT WELL CHANGED GOWN. VSS. PT ATE ALL OF BREAKFAST. NO COMPLAINTS. WILL CONTINUE TO MONITOR
--- NOTE | 2019-04-10 09:30 | NUR ---
NURSE CHANGED OUT PROPOFOL TUBING. TITRATED DOWN TO 35 MCG. WILL CONTINUE TO MONITOR. VSS
--- NOTE | 2019-04-10 11:26 | NUR ---
DR. ANGELA MADE ROUNDS. NO ORDERS GIVEN. PT STABLE SEDATED ON VENTILATOR. STILL TITRATING PROPOFOL TOLERATED. VSS
--- NOTE | 2019-04-10 12:25 | NUR ---
PT WOKE UP AGITATED AND COUGHING OVER VENT. INCREASED FENTANYL TO 175MCG/HR. 3.5ML/HR
--- NOTE | 2019-04-10 13:00 | NUR ---
DR. GRIGSBY CAME BY TO ROUND ON PATIENT. CHANGED VENTILATOR SETTINGS FROM ASSIST CONTROL TO SIMV. PT IS STABLE.
--- NOTE | 2019-04-10 14:17 | NUR ---
APTT LAB 35.1. ADMINISTERED 3000UNIT HEPARIN BOLUS AND INCREASED RATE FROM 1700 TO 1900UNITS/HR ORDERED.
--- NOTE | 2019-04-10 15:30 | NUR ---
GAVE PATIENT FULL HIBBA CLEANSE BATH AND CHANGED ALL LINENS.
--- NOTE | 2019-04-10 17:00 | NUR ---
PT RESTING COMFORTABLY IN BED WITH STABLE VSS SEDATED ON VENT. WAKES TO VOICE.
--- NOTE | 2019-04-10 19:00 | NUR ---
RE-ASSESSMENT COMPLETE. VS STABLE. NO VISUAL CUES OF DISTRESS NOTED. DENIES ANY OTHER NEEDS. WILL CONTINUE TO MONITOR.
[2019-04-11] VITALS (22 sets, daily range): BP systolic 118–159; BP diastolic 53–92
[2019-04-11 00:27] LABS: HEMATOCRIT 39.9 % (36.0-48.0); HEMOGLOBIN 12.2 g/dL (12-16); MCH 25.1 pg (26.0-34.0); MCHC 30.6 g/dL (31.0-37.0); MCV 81.9 fL (80.0-100.0); MEAN PLATELET VOLUME 8.6 fL (7.4-10.4); RBC 4.87 10x6/uL (4.00-5.40); RDW 18.3 % (11.5-14.5); WBC 19.7 10x3/uL (4.8-10.8)
[2019-04-11 06:16] LABS: BASOPHILS 0.1 % (0-2); EOSINOPHILS 0 % (0-7); HEMATOCRIT 41.6 % (36.0-48.0); HEMOGLOBIN 12.5 g/dL (12-16); IMMATURE GRANULOCYTES 0.4 % (0-5); LYMPHOCYTES 5.8 % (15-50); MCH 24.9 pg (26.0-34.0); MCV 82.9 fL (80.0-100.0); MEAN PLATELET VOLUME 8.6 fL (7.4-10.4); MONOCYTES 5.7 % (2-11); PLATELET COUNT 215 10x3/uL (130-400); RBC 5.02 10x6/uL (4.00-5.40); RDW 18.5 % (11.5-14.5); WBC 19.7 10x3/uL (4.8-10.8)
--- NOTE | 2019-04-11 07:00 | NUR ---
REC'D UP IN CHAIR, AWAKE/ALERT. VSS. DENIES ANY NEED AT THIS TIME.
--- NOTE | 2019-04-11 07:00 | NUR ---
REC'D SUPINE, SEDATED ON VENT. TURN SYSTEM PLACED UNDER PT AND REPOSITIONED. DENIES PAIN.
[2019-04-11 07:16] LABS: ALKALINE PHOSPHATASE 111 U/L (46-116); BILIRUBIN - TOTAL 0.38 mg/dL (0.2-1.3); CALCIUM 8.8 mg/dL (8.5-10.1); CARBON DIOXIDE 28.1 mmol/L (21.0-32.0); CHLORIDE - SERUM 99 mmol/L (98-107); CREATININE - SERUM 0.7 mg/dL (0.6-1.3); MAGNESIUM - SERUM 2.2 mg/dL (1.8-2.4); POTASSIUM - SERUM 5.3 mmol/L (3.5-5.1); PROTEIN - SERUM 6.5 g/dL (6.4-8.2); SODIUM 133 mmol/L (136-145); UREA NITROGEN 18 mg/dL (7-18); eGFR NON AFRICAN AMERICAN > 90 mL/min (90-120)
[2019-04-11 07:17] LABS: ALT (SGPT) 45 U/L (10-68); CALC OSMOLALITY 271 mosm/kg (275-300); GLUCOSE 171 mg/dL (74-106)
--- NOTE | 2019-04-11 07:30 | NUR ---
ASSESSED. VSS. NO MOVEMENT SEEN IN PNEUMOVAC UPON C/DB. BREAKFAST SERVED.
--- NOTE | 2019-04-11 08:00 | NUR ---
ASSESSED, VSS, NODS/ SHAKES HEAD APROPRIATELY TO YES/NO QUESTIONS.
--- NOTE | 2019-04-11 09:09 | NUR ---
HEPARIN ADJUSTED PER ORDER. REPOSITIONED. FAMILY IN AND UPDATED.
--- NOTE | 2019-04-11 11:00 | NUR ---
REASSESSED. SEDATION WEANED OVER LAST 1.5 HRS- SEE IV FLOWSHEET. DR CORTEZ IN- ORDER REC'D.
--- NOTE | 2019-04-11 12:47 | NUR ---
DR SEB EL. OETT ADVANCED PER RT.
--- NOTE | 2019-04-11 13:45 | NUR ---
DR QUINTERO ROUNDS NEW CONSULT FOR HEPARIN RESISTANCE.
--- NOTE | 2019-04-11 14:40 | NUR ---
HEPARIN GTT DC'D PER DR QUINTERO.
--- NOTE | 2019-04-11 15:00 | NUR ---
REASSESSED. REMAINS SEDATED.
--- NOTE | 2019-04-11 17:00 | NUR ---
REPOSITIONED, FAMILY AT BEDSIDE.
[2019-04-11 17:10] LABS: INR 1.07 (0.85-1.17); PROTIME 13.4 SECONDS (11.6-15.0)
[2019-04-11 17:14] LABS: ALBUMIN 2.6 g/dL (3.4-5.0); BILIRUBIN - DIRECT 0.18 mg/dL (0.00-0.30); BILIRUBIN - INDIRECT 0.23 mg/dL (0.00-1.00); BILIRUBIN - TOTAL 0.41 mg/dL (0.2-1.3); PROTEIN - SERUM 5.9 g/dL (6.4-8.2)
[2019-04-11 17:28] LABS: APTT < 22.8 SECONDS (22.8-39.4); FIBRINOGEN 257 mg/dL (239-481)
--- NOTE | 2019-04-11 18:10 | NUR ---
PULMOCARE TUBEFEEDING STARTED ORDERED AT 20 ML/HR. ARGATROBAN INFUSION STARTED.
--- NOTE | 2019-04-11 19:00 | NUR ---
SHIFT ASSESSMENT COMPLETE. VS SIGNS STABLE AND AFEBRILE. NO VISUAL CUES OF DISTREDSS NOTED. WILL CONTINUE TO MONITOR.
--- NOTE | 2019-04-11 21:00 | NUR ---
NO VISUAL CUES OF DISTRESS NOTED. MATEO CONTINUE TO MONITOR.
--- NOTE | 2019-04-11 23:00 | NUR ---
REASSESSMENT COMPLETE. NO CHANGES FROM SHIFT ASSESSMENT NOTED. WILL MONITOR.
[2019-04-12] VITALS (24 sets, daily range): BP systolic 116–145; BP diastolic 41–73
--- NOTE | 2019-04-12 01:00 | NUR ---
NO VISUAL CUES OF DISTRESS NOTED. VS STABLE. WILL CONTINUE TO MONITOR.
[2019-04-12 01:18] LABS: HEMOGLOBIN 12.1 g/dL (12-16); MCH 25.1 pg (26.0-34.0); MCHC 30.3 g/dL (31.0-37.0); MCV 82.8 fL (80.0-100.0); MEAN PLATELET VOLUME 8.6 fL (7.4-10.4); RBC 4.83 10x6/uL (4.00-5.40); RDW 18.1 % (11.5-14.5); WBC 16.1 10x3/uL (4.8-10.8)
--- NOTE | 2019-04-12 01:58 | NUR ---
SPOKE WITH DR QUINTERO REGARDING PTT OF 83.9 FOR ARGATROBAN DOSING PROTOCOL. RECIEVED ORDER TO CONTINUE MEDICATION AT CURRENT RATE. CURRENTLY INFUSING @ 5.38 MCG. ORDERED Q 6 PTT PER PROTOCOL. READ BACK FOR CLARIFICATION. WILL CONTINUE TO MONITOR.
--- NOTE | 2019-04-12 03:00 | NUR ---
NO VISUAL CUES OF DISTRESS NOTED. VS STABLE. WILL CONTINUE TO MONITOR.
--- NOTE | 2019-04-12 05:00 | NUR ---
NO VISUAL CUES OF DISTRESS NOTED. VS STABLE. WILL CONTINUE TO MONITOR.
[2019-04-12 06:18] LABS: BASOPHILS 0 % (0-2); EOSINOPHILS 0 % (0-7); HEMATOCRIT 40.1 % (36.0-48.0); IMMATURE GRANULOCYTES 0.5 % (0-5); LYMPHOCYTES 6.7 % (15-50); MCHC 29.9 g/dL (31.0-37.0); MCV 83.5 fL (80.0-100.0); MEAN PLATELET VOLUME 8.8 fL (7.4-10.4); MONOCYTES 5.9 % (2-11); NEUTROPHILS 86.9 % (40-80); PLATELET COUNT 213 10x3/uL (130-400); RDW 18.2 % (11.5-14.5); WBC 15.3 10x3/uL (4.8-10.8)
[2019-04-12 06:26] LABS: ALBUMIN 2.5 g/dL (3.4-5.0); ALKALINE PHOSPHATASE 93 U/L (46-116); ALT (SGPT) 51 U/L (10-68); BILIRUBIN - TOTAL 0.45 mg/dL (0.2-1.3); CALC OSMOLALITY 274 mosm/kg (275-300); CALCIUM 8.4 mg/dL (8.5-10.1); CARBON DIOXIDE 27.7 mmol/L (21.0-32.0); CHLORIDE - SERUM 100 mmol/L (98-107); CREATININE - SERUM 0.7 mg/dL (0.6-1.3); GLUCOSE 232 mg/dL (74-106); MAGNESIUM - SERUM 2.2 mg/dL (1.8-2.4); POTASSIUM - SERUM 4.6 mmol/L (3.5-5.1); PROTEIN - SERUM 5.7 g/dL (6.4-8.2); SODIUM 133 mmol/L (136-145); UREA NITROGEN 19 mg/dL (7-18); eGFR NON AFRICAN AMERICAN > 90 mL/min (90-120)
[2019-04-12 06:30] LABS: APTT 88.8 SECONDS (22.8-39.4)
[2019-04-12 06:41] LABS: INR 6.96 (0.85-1.17)
[2019-04-12 06:45] LABS: PROTIME 59.3 SECONDS (11.6-15.0)
--- NOTE | 2019-04-12 07:00 | NUR ---
CALLED DR QUINTERO ABOUT CRITICALLY HIGH PT AND INR. NO NEW ORDERS AT THIS TIME. WILL CONTINUE TO MONITOR.
--- NOTE | 2019-04-12 07:00 | NUR ---
REC'D SUPINE, SEDATED ON VENT, ASSESSED.
--- NOTE | 2019-04-12 09:00 | NUR ---
REPOSITIONED, VSS, FAMILY IN AND UPDATED.
--- NOTE | 2019-04-12 09:52 | NUR ---
DR QUINTERO NOTIFIED OF PTT95.3 W/CURRENT ARGATROBAN RATE @ 5.38 MCG/KG/MIN OR 50 MLS.
--- NOTE | 2019-04-12 12:20 | NUR ---
DR GRIGSBY ROUNDS- VENT CHANGES MADE.
--- NOTE | 2019-04-12 12:30 | NUR ---
DR QUINTERO ROUNDS- DISCUSSES ARGATROBAN GTT- WILL GET PTT AND CALL.
--- NOTE | 2019-04-12 14:20 | NUR ---
PTT REDRAWN D/T "RESULTED OUT ZERO".
--- NOTE | 2019-04-12 15:00 | NUR ---
REASSESSED, SEDATION HAS BEEN OFF X 1HRAND TOLERATED WELL BUT IS NOW BECOMING ANXIOUS AND TRYING TO TALK, PROPOFOL AND FENT RESUMED.
--- NOTE | 2019-04-12 19:58 | NUR ---
PT RECEIVED ON VENT AND SEDATED. OPENS EYES SPONTANEOUSLY AND SHAKES HEAD TO YES/NO QUESTIONS. CAN FOLLOW DIRECTIONS. PULSES PALP X4. VSS. QUIGLEY PATENT WITH CLEAR YELLOW URINE NOTED. NO S/S OF DISTRESS. WILL CONTINUE TO OBSERVE.
--- NOTE | 2019-04-12 21:08 | NUR ---
DR. QUINTERO CALLED AND REPORTED APTT OF 79.3 GAVE ORDERS TO REDUCE RATE OF ARGATROGAN FROM 4MCG/KG/MIN TO 3MCG/KG/MIN AND RECHECK IN 6HOURS. IF APTT BETWEEN 60-90 CONTINUE RATE AND DO NOT CALL, CALL FOR FURTHER CHANGES IF OUT OF PARAMETERS.
[2019-04-13] VITALS (41 sets, daily range): BP systolic 121–148; BP diastolic 38–64
--- NOTE | 2019-04-13 00:07 | NUR ---
REASSESSMENT COMPLETED, SEE FLOW SHEET. PT REPOSITIONED. WILL CONTINUE TO OBSERVE.
[2019-04-13 00:38] LABS: HEMATOCRIT 39.6 % (36.0-48.0); MCHC 30.3 g/dL (31.0-37.0); MCV 82.5 fL (80.0-100.0); MEAN PLATELET VOLUME 8.9 fL (7.4-10.4); RBC 4.8 10x6/uL (4.00-5.40); RDW 18.3 % (11.5-14.5); WBC 15.7 10x3/uL (4.8-10.8)
--- NOTE | 2019-04-13 02:26 | NUR ---
PT WITH EYES CLOSED, CONTINUES SEDATION ON VENT. OPENS EYES TO VERBAL STIMULI. NO S/S OF DISTRESS. WILL CONTINUE TO OBSERVE.
--- NOTE | 2019-04-13 03:53 | NUR ---
CHG BATH GIVEN. PT TOLERATED. REASSESSMENT COMPLETED SEE FLOW SHEET. WILL CONTINUE TO OBSERVE
[2019-04-13 04:53] LABS: APTT 78.3 SECONDS (22.8-39.4)
[2019-04-13 04:58] LABS: INR 4.74 (0.85-1.17); PROTIME 43.6 SECONDS (11.6-15.0)
--- NOTE | 2019-04-13 05:57 | NUR ---
PT WITH EYES OPEN, MOTIONED NEED BY TAPPING ON SIDERAIL REQUESTING WATER. EDUCATED PT THAT SHE CANNOT HAVE WATER BUT CAN PROVIDE MOUTHCARE VIA SWAB. PT NODED HEAD IN UNDERSTANDING. ORAL CARE PROVIDED. WILL CONTINUE TO OBSERVE.
[2019-04-13 06:23] LABS: ALBUMIN 2.6 g/dL (3.4-5.0); ALKALINE PHOSPHATASE 94 U/L (46-116); ALT (SGPT) 58 U/L (10-68); BILIRUBIN - TOTAL 0.37 mg/dL (0.2-1.3); CALC OSMOLALITY 279 mosm/kg (275-300); CALCIUM 8.4 mg/dL (8.5-10.1); CARBON DIOXIDE 30.5 mmol/L (21.0-32.0); CHLORIDE - SERUM 102 mmol/L (98-107); CREATININE - SERUM 0.7 mg/dL (0.6-1.3); GLUCOSE 218 mg/dL (74-106); MAGNESIUM - SERUM 2.1 mg/dL (1.8-2.4); POTASSIUM - SERUM 4.4 mmol/L (3.5-5.1); PROTEIN - SERUM 5.8 g/dL (6.4-8.2); SODIUM 135 mmol/L (136-145); UREA NITROGEN 21 mg/dL (7-18); eGFR NON AFRICAN AMERICAN > 90 mL/min (90-120)
[2019-04-13 06:45] LABS: BASOPHILS 0.1 % (0-2); EOSINOPHILS 0 % (0-7); HEMOGLOBIN 12.2 g/dL (12-16); IMMATURE GRANULOCYTES 0.8 % (0-5); LYMPHOCYTES 6.4 % (15-50); MCHC 30.5 g/dL (31.0-37.0); MEAN PLATELET VOLUME 8.8 fL (7.4-10.4); MONOCYTES 5.8 % (2-11); NEUTROPHILS 86.9 % (40-80); PLATELET COUNT 236 10x3/uL (130-400); RBC 4.88 10x6/uL (4.00-5.40); RDW 18.1 % (11.5-14.5); WBC 15.4 10x3/uL (4.8-10.8)
--- NOTE | 2019-04-13 07:25 | NUR ---
PHARMACY CALLED AND REQUEST ARGATROBAN AT 0600 CALLED AGAIN AND STATED THEY WOULD TUBE ONE UP. JUST RECEIVED. WILL ADMINISTER.
--- NOTE | 2019-04-13 09:50 | CN ---
PATIENT NAME:DERIC SALDANA MEDICAL RECORD: [id number] : 63 [facility] ADMIT DATE: 04/08/19 ACCOUNT: [id number] CONSULTING PHYSICIAN: JAILYN CORTEZ MD REFERRING PHYSICIAN: AP DANIELSON MD DATE OF CONSULTATION: 04/11/2019 ADMITTING DIAGNOSES: 1. Paroxysmal atrial fibrillation. 2. Abnormal ECG. 3. Acute thrombus of right upper extremity. 4. Hypertension. 5. Hyperlipidemia. 6. Chronic obstructive pulmonary disease. 7. Past smoking history. HISTORY OF PRESENT ILLNESS: Mrs. Saldana presents with acute thrombosis of her right upper extremity axillary artery, status post intervention as she remains intubated and sedated. She had an episode of wide complex tachycardia that was irregular yesterday. She was given 1 dose of Cordarone. She has had no further episodes of this. Looking at it, it is irregularly irregular. This is atrial fibrillation with aberrancy. She did respond to Cordarone, however, at 53 years old she is too young for ongoing Cordarone therapy. PHYSICAL EXAMINATION: GENERAL APPEARANCE: Well-nourished, well-developed, appears stated age. Level of distress, comfortable. PSYCHIATRIC: Mental status, alert, normal affect. Orientation, oriented to time, place and person. EYES: Lids and conjunctiva, noninjected. No discharge, no pallor. ENT: Lips, teeth, gums, normal dentition. Oropharynx, no cyanosis, no pallor. NECK: Carotid arteries, bilateral normal upstroke, no bruits, no thrills. JUGULAR VEINS: No jugular venous pressure or distention. CERVICAL LYMPH NODES: Nontender, nonenlarged. THYROID: Not enlarged. Nontender. No nodules. LUNGS: Respiratory effort, unlabored. CHEST: Normal curvature. No thoracic deformity. No chest wall tenderness. Percussion, resonant. Auscultation, clear. No wheezes, no rales, no rhonchi. CARDIOVASCULAR: Precordial exam, nondisplaced. No heaves or pericardial thrills. Rate and rhythm, regular. Heart sounds, normal S1, normal S2. No S3, no gallop, no rub. Systolic murmur, not heard. Diastolic murmur, not heard. EXTREMITIES: No cyanosis, no edema. Peripheral pulses, full and equal in all extremities, except as noted. No bruits appreciated. ABDOMEN: Soft, nondistended. Normal aorta. No bruit. Nontender. No masses. Liver, nontender, no hepatomegaly. Spleen, nontender, no splenomegaly. MUSCULOSKELETAL: No joint tenderness. No joint swelling. No erythema. NEUROLOGICAL: Normal gait, normal strength, normal tone. SKIN: Warm and dry. OVERALL IMPRESSION: Atrial fibrillation. This explains the source for the acute occlusion of her right upper extremity. We will start her on Rythmol 150 mg b.i.d., get an echocardiogram as well. TRANSINT:[id number] Voice Confirmation ID: [id number] DOCUMENT ID: [id number] CONSULT REPORT [id number] DERIC SALDANA JEFFREY MD at 0950 CC: [id number] DICTATION DATE: 04/11/19 1042 TECHNICAL SERVICES REP: 04/11/19 1131 ADM IN [facility] [address] [place] [address]
--- NOTE | 2019-04-13 11:30 | NUR ---
RECEIVED REPORT FROM EULALIO GRIMES. PT RESTING IN BED SEDATED ON VENTILATOER WITH VSS. WILL CHECK ORDERS AND CONTINUE TO MONITOR
--- NOTE | 2019-04-13 12:20 | NUR ---
RECEIVED ORDER TO INCREASE SEDATION FROM DR. GRIGSBY FOR BRONCHOSCOPY PROCEDURE. INCREASED FENTANYL FROM 2 100MCG/HR TO 300MCG/HR. 2ML PER HOUR TO 6ML/HR.
--- NOTE | 2019-04-13 12:30 | NUR ---
BRONCHOSCOPY PERFORMED BY DR. GRIGSBY AND RT AT THIS TIME. PT VS REMAINED STABLE.
--- NOTE | 2019-04-13 13:41 | NUR ---
Nutrition follow-up: Pt intubated s/p bronchoscopy Pulmocare infusing @ goal rate of 40 ml/hr WT: 340# RDN following.
--- NOTE | 2019-04-13 14:16 | CN ---
PATIENT NAME:DERIC CARBALLO MEDICAL RECORD: [id number] : 63 LOCATION:[facility].[id number] ADMIT DATE: 04/08/19 ACCOUNT: [id number] CONSULTING PHYSICIAN: CHANG DOWNING MD REFERRING PHYSICIAN: AP DANIELSON MD DATE OF CONSULTATION: 04/09/2019 HISTORY OF PRESENT ILLNESS: A 53-year-old female with no known history of coronary artery disease, has history of morbid obesity and obstructive sleep apnea, admitted with thrombus of the right upper extremity, status post AngioJet. We are asked to see her for possible cardiac source of emboli. PAST MEDICAL HISTORY: Includes; 1. History of morbid obesity. 2. Obstructive sleep apnea. 3. Hypertension. 4. Diabetes mellitus. 5. Hyperlipidemia. 6. Gastroesophageal reflux disease. ALLERGIES: CODEINE AND NEURONTIN. HOME MEDICATIONS: Typically, include albuterol q. 4, Flexeril 10 mg b.i.d., Incruse Ellipta one puff daily, losartan 100 daily, pravastatin 10 daily, Celexa 20 daily, [place] 10/325 q. 6 p.r.n., Lasix 20 daily, and omeprazole 20 daily. SOCIAL HISTORY: Smokes about a half pack a day. She has difficulty with ADLs due to morbid obesity, etc. No set exercise program. REVIEW OF SYSTEMS: Unobtainable due to the patient factors. PHYSICAL EXAMINATION: GENERAL: Intubated and sedated, in no acute distress. VITAL SIGNS: Blood pressure 132/62. Pulse 68 and regular. HEENT: Normocephalic and atraumatic. NECK: No bruits are noted. HEART: Regular. No obvious gallops noted. LUNGS: She has actually fairly good air excursion. ABDOMEN: Soft and nontender. EXTREMITIES: Pulses 2+. No edema in the lower extremities. Echo study was reviewed. LV function was normal. She has had no evidence of atrial fibrillation; although obviously, given history of sleep apnea, she is certainly at risk for paroxysmal atrial fibrillation and subsequent embolic events. Agree with current management. Start her on NOAC therapy when taking p.o. Could consider event monitor in halfway to see if we can unmask any atrial arrhythmias. Doubt embolic source of the LV given normal LV function. Thank you for consultation. TRANSINT:[id number] Voice Confirmation ID: [id number] DOCUMENT ID: [id number] CONSULT REPORT [id number] DERIC CARBALLO,CHANG Hamilton MD at 1416 CC: [id number] DICTATION DATE: 04/09/19 1631 CARGO BROKER: 04/09/19 1903 ADM IN [facility] [address] [id number]
--- NOTE | 2019-04-13 16:21 | NUR ---
CHANGED OUT PULMICARE OGT FEED TUBING. VSS
--- NOTE | 2019-04-13 17:30 | NUR ---
PT TURNED AND REPOSITIONED FOR COMFORT, ORAL CARE DONE AT THIS TIME WELL. MONITORS ON AND WORKING, VITALS STABLE. WILL CONTINUE TO OBSERVE.
--- NOTE | 2019-04-13 19:55 | NUR ---
PT RECEIVED SEDATED ON VENT. NO S/S OF DISTRESS. VSS. QUIGLEY PATENT WITH YELLOW URINE. CONTINUES ARGATROBAN 3MCG/KG/MIN. PTT DRAWN FROM LEFT UPPER ARM PICC AND GIVEN TO DATA STEWARD. PICC PATENT. ARGATROBAN TO LEFT HAND. WILL CONTINUE TO OBSERVE.
--- NOTE | 2019-04-13 20:39 | NUR ---
DR QUINTERO CALLED UNIT AT 1938 TO CHECK ON PT. REVIEWED LABS AND RATE OF ARGATROBAN WHICH IS WAS 3MCG/KG/MIN. DR. QUINTERO STATES TO RECHECK APTT NOW AND WAS INFORMED THERE WERE ORDERS FOR A CHECK AT 1999 AND WAS OK WITH THAT AND GAVE ORDERS IF APTT BETWEEN 60 - 90 JUST RECHECK IN AM.
--- NOTE | 2019-04-13 23:45 | NUR ---
PT CONTINUES SEDATION ON VENT. REASSESSNENT COMPLETED, SEE FLOW SHEET. WILL CONTINUE TO OBSERVE.
[2019-04-14] VITALS (26 sets, daily range): BP systolic 119–160; BP diastolic 53–79
--- NOTE | 2019-04-14 01:04 | NUR ---
CHG BATH GIVEN WITH LINENS AND PAD CHANGED. PT NOTED WITH PVC DURING BATH WHEN TURNED TO SIDES. PT TURNED TO LEFT SIDE AND PVC CONTINUED. WEDGES REMOVED AND RYTHME RETURNED TO NORMAL FOR PT. WILL CONTINUE TO OBSERVE
--- NOTE | 2019-04-14 04:45 | NUR ---
PT NOTED TO NOT TOLERATE TURNING TO LEFT SIDE. PT HEART RATE GOES INTO AFIB WITH RVR. WEDGES/PILLOWS REMOVED AND PT HEART RATE RETURNS TO NORMAL FOR PT. WILL CONTINUE TO OBSERVE.
[2019-04-14 05:55] LABS: BASOPHILS 0 % (0-2); EOSINOPHILS 0.1 % (0-7); HEMATOCRIT 40.1 % (36.0-48.0); HEMOGLOBIN 12.1 g/dL (12-16); LYMPHOCYTES 6.1 % (15-50); MCH 24.8 pg (26.0-34.0); MCHC 30.2 g/dL (31.0-37.0); MCV 82.2 fL (80.0-100.0); MEAN PLATELET VOLUME 8.8 fL (7.4-10.4); MONOCYTES 5.5 % (2-11); NEUTROPHILS 87.3 % (40-80); PLATELET COUNT 221 10x3/uL (130-400); RBC 4.88 10x6/uL (4.00-5.40); RDW 18.1 % (11.5-14.5); WBC 16.5 10x3/uL (4.8-10.8)
[2019-04-14 06:19] LABS: ALBUMIN 2.6 g/dL (3.4-5.0); ALKALINE PHOSPHATASE 91 U/L (46-116); ALT (SGPT) 56 U/L (10-68); BILIRUBIN - TOTAL 0.39 mg/dL (0.2-1.3); CALC OSMOLALITY 280 mosm/kg (275-300); CALCIUM 8.7 mg/dL (8.5-10.1); CARBON DIOXIDE 30.4 mmol/L (21.0-32.0); CHLORIDE - SERUM 100 mmol/L (98-107); CREATININE - SERUM 0.7 mg/dL (0.6-1.3); GLUCOSE 261 mg/dL (74-106); MAGNESIUM - SERUM 2.1 mg/dL (1.8-2.4); POTASSIUM - SERUM 4.4 mmol/L (3.5-5.1); PROTEIN - SERUM 5.8 g/dL (6.4-8.2); SODIUM 135 mmol/L (136-145); UREA NITROGEN 19 mg/dL (7-18); eGFR NON AFRICAN AMERICAN > 90 mL/min (90-120)
--- NOTE | 2019-04-14 07:00 | NUR ---
SHIFT ASSESSMENT COMPLETED. PT CARE ASSUMED. MONITORS ON AND WORKING, VITALS STABLE, NO SIGNS/SYMPTOMS OF PAIN OR DISCOMFORT NOTED. PT SEDATED ON VENT, SETTINGS NOTED, SEE FLOW SHEET FOR FURTHER DETIALS. WILL CONTINUE TO OBSERVE.
[2019-04-14 07:33] LABS: APTT 68.3 SECONDS (22.8-39.4); INR 4.11 (0.85-1.17)
--- NOTE | 2019-04-14 09:00 | NUR ---
PT TURNED AND REPOSITIONED FOR COMFORT, NO SIGNS/SYMPTOMS OF PAIN OR DISCOMFORT NOTED, VITALS STABLE. WILL CONTINUE TO OBSERVE.
--- NOTE | 2019-04-14 11:00 | NUR ---
FAMILY CALLED, PASSWORD VERIFIED AND UPDATE PROVIDED. ONE TIME ORDER FOR LASIX 40MG PER DR GRIGSBY GIVEN, MONITORS ON AND WORKING, VITALS STABLE, WILL CONTINUE TO OBSERVE.
[2019-04-14 11:14] LABS: ACLA - IGG AB <9 GPL U/mL (0-14); ACLA - IGM AB <9 MPL U/mL (0-12)
--- NOTE | 2019-04-14 13:00 | NUR ---
NO CHANGES, MONITORS ON AND WORKING, VITALS STABLE. WILL CONTINUE TO OBSERVE.
--- NOTE | 2019-04-14 15:00 | NUR ---
PT TURNED AND REPOSITIONED FOR COMFORT, NO SIGNS/SYMPTOMS OF PAIN OR DISCOMFORT NOTED AT THIS TIME, MONITORS ON AND WORKING, VITALS STABLE. SEE FLOW SHEET FOR FURTHER DETIALS. WILL CONTINUE TO OBSERVE.
--- NOTE | 2019-04-14 17:00 | NUR ---
PT TURNED AND REPOSITIONED FOR COMFORT, TUBE FEED BAGS AND ALL IV LINES CHANGED AT THIS TIME. MONITORS ON AND WORKING, VITALS STABLE. WILL CONTINUE TO OBSERVE.
[2019-04-14 20:06] LABS: ACID FAST SMEAR Negative (()); AFB SPECIMEN PROCESSING Concentration (())
[2019-04-15] VITALS (25 sets, daily range): BP systolic 133–169; BP diastolic 61–85
[2019-04-15 03:09] LABS: ANTITHROMBIN III ACTIVITY 82 % (75-135); HEPARIN ANTI-XA <0.1 IU/mL (())
[2019-04-15 06:04] LABS: BASOPHILS 0.1 % (0-2); EOSINOPHILS 0 % (0-7); HEMATOCRIT 40.1 % (36.0-48.0); HEMOGLOBIN 12.1 g/dL (12-16); IMMATURE GRANULOCYTES 1.3 % (0-5); LYMPHOCYTES 4.8 % (15-50); MCH 24.7 pg (26.0-34.0); MCHC 30.2 g/dL (31.0-37.0); MCV 81.8 fL (80.0-100.0); MEAN PLATELET VOLUME 9.1 fL (7.4-10.4); MONOCYTES 5.3 % (2-11); NEUTROPHILS 88.5 % (40-80); PLATELET COUNT 234 10x3/uL (130-400); RDW 18.2 % (11.5-14.5); WBC 17.2 10x3/uL (4.8-10.8)
[2019-04-15 06:10] LABS: CALC OSMOLALITY 283 mosm/kg (275-300); CALCIUM 8.5 mg/dL (8.5-10.1); CARBON DIOXIDE 31.1 mmol/L (21.0-32.0); CHLORIDE - SERUM 98 mmol/L (98-107); CREATININE - SERUM 0.7 mg/dL (0.6-1.3); GLUCOSE 297 mg/dL (74-106); POTASSIUM - SERUM 4.4 mmol/L (3.5-5.1); SODIUM 135 mmol/L (136-145); UREA NITROGEN 22 mg/dL (7-18); eGFR NON AFRICAN AMERICAN > 90 mL/min (90-120)
[2019-04-15 06:19] LABS: INR 4.46 (0.85-1.17); PROTIME 41.6 SECONDS (11.6-15.0)
[2019-04-15 06:20] LABS: APTT 66.1 SECONDS (22.8-39.4)
--- NOTE | 2019-04-15 09:36 | NUR ---
NUTRITION F/U PT REMAIS SEDATED ON VENT. PULMOCARE TUBE FEEDS AT 40 CC/HR. DIPRIVAN RATE AT 20 CC/HR. WILL CONTINUE TO MONITOR PT PROGRESS. RD FOLLOWING
--- NOTE | 2019-04-15 15:44 | NUR ---
TO CT WITH [facility] X[facility], PORTABLE VENT AND O2 IN USE.
[2019-04-16] VITALS (29 sets, daily range): BP systolic 137–182; BP diastolic 62–85
[2019-04-16 07:36] LABS: APTT 30.9 SECONDS (22.8-39.4); INR 1.31 (0.85-1.17); PROTIME 15.7 SECONDS (11.6-15.0)
--- NOTE | 2019-04-16 11:15 | NUR ---
QUIGLEY DC'D WITHOUT DIFFICULTY PER ORDER, URINAL TO BEDSIDE
[2019-04-16 18:06] LABS: FUNGUS STAIN Final report (())
[2019-04-17] VITALS (29 sets, daily range): BP systolic 140–176; BP diastolic 65–125
[2019-04-17 05:43] LABS: BASOPHILS 0.1 % (0-2); EOSINOPHILS 0.1 % (0-7); HEMOGLOBIN 12.6 g/dL (12-16); LYMPHOCYTES 5.3 % (15-50); MCH 25.4 pg (26.0-34.0); MCHC 30.7 g/dL (31.0-37.0); MCV 82.5 fL (80.0-100.0); MEAN PLATELET VOLUME 8.6 fL (7.4-10.4); MONOCYTES 4.6 % (2-11); NEUTROPHILS 88.9 % (40-80); PLATELET COUNT 192 10x3/uL (130-400); RBC 4.97 10x6/uL (4.00-5.40); RDW 18.6 % (11.5-14.5); WBC 19.5 10x3/uL (4.8-10.8)
[2019-04-17 06:05] LABS: CALC OSMOLALITY 288 mosm/kg (275-300); CALCIUM 9.3 mg/dL (8.5-10.1); CARBON DIOXIDE 37.7 mmol/L (21.0-32.0); CHLORIDE - SERUM 96 mmol/L (98-107); CREATININE - SERUM 0.7 mg/dL (0.6-1.3); GLUCOSE 290 mg/dL (74-106); MAGNESIUM - SERUM 2.2 mg/dL (1.8-2.4); PHOSPHOROUS 4.3 mg/dL (2.5-4.9); POTASSIUM - SERUM 3.8 mmol/L (3.5-5.1); SODIUM 136 mmol/L (136-145); eGFR NON AFRICAN AMERICAN > 90 mL/min (90-120)
[2019-04-17 06:07] LABS: UREA NITROGEN 29 mg/dL (7-18)
--- NOTE | 2019-04-17 07:00 | NUR ---
REC'D RPOERT AND RESUMED CARE, ETT TO VENTIALTION ASND SECURED, 50% FIO2 ON VENTILATOR, VSS, ORAL CARE AND SUCTION COMPLETED, AROUSE TO VOICE AND FOLLOWS SIMPLE COMMANDS, SHAKES HEAD NO TO PAIN, OGT WITH PULMOCARE INFUSING AT 40 CC/HR, RESUDAL CHECK 42 CC, LEFT UPPER ARM PICC IN PLACE WITH PROPFAL INFUSING AT 25 MCG AND FENTANYL AT 200 MCG, NS AT 15 CC/HR, BELLY IS DISTENDED AND TAUNT, QUIGLEY TO GRAVITY WITH YELOW DRAINAGE WITH SEDIMENT TO BAG, B/L WRIST RESTRAINTS IN USE, ASSESSMENT COMPLETED PER FLOWSHEET,
--- NOTE | 2019-04-17 08:20 | NUR ---
AT 0815 TURNED OFF SEDATION AND CHANGED VENT TO 10/8 AND INCREASED O2 TO 60%.
--- NOTE | 2019-04-17 09:00 | NUR ---
MORNING MEDS GIVEN PER DEC FLOWSHEET
--- NOTE | 2019-04-17 09:45 | NUR ---
DR GRIGSBY AT BEDSIDE FOR EVAL, ORDER GIVEN TO STOP ALL SEDATION AND CPAP, SEDATION OFF, CHANGED TO CPAP BY RT
--- NOTE | 2019-04-17 10:53 | NUR ---
TERMINATED CPAP @ 1000 AND PLACED BACK ON ORIGINAL SETTINGS. RR WAS 4-5, VE WAS 4-5.
--- NOTE | 2019-04-17 11:00 | NUR ---
ASSESSMENT COMPLETE PER FLOWSHEET, NO ACUTE CHANGE FROM PREVIOUS,
--- NOTE | 2019-04-17 11:20 | NUR ---
Nutrition Follow Up: Pt continues sedated on vent and is tolerating TF of Pulmocare @ 40 ml/hr (goal rate). I<O Wt loss noted No BM since admit (x 9 days) Labs reviewed - Glucose elevated Meds noted including Diprivan @ 20.3 ml/hr providing 536 kcal/d Rec continue current TF regimen. RD following.
--- NOTE | 2019-04-17 14:20 | NUR ---
RT AT BEDSIDE CALLING FOR HELP, PATIENT PROJECTILE VOMITING, LARGE YELLOWISH CARDOZO WITH FOOD PARTICLE EMESIS, ORAL AND SKIN CARE GIVEN, PAGED DR GRIGSBY
--- NOTE | 2019-04-17 14:30 | NUR ---
PC FROM DR GRIGSBY, NEW ORDERS GIVEN
--- NOTE | 2019-04-17 14:40 | NUR ---
ZOFAN 4MG IVP GIVNE PER ORDER
--- NOTE | 2019-04-17 14:50 | NUR ---
PROJECTILE VOMITING AGAIN LARGE AMOUNT, ORAL, SKIN CARE, AND COMPLETED LINEN CHANGEHOB UP AT 45 DEGREES, OGT TO SUCTION, WITH SMALL AMOUNT OF RETURN, OGT DC'D CLOGGED ON END, AND NEW 18 FR TO RIGHT NARES ONE INTITATED, CHECK WITH INSTILLATION OF 30 CC AIR, CONTINUES TO HAVE MINIMAL OUTPUT
--- NOTE | 2019-04-17 16:10 | NUR ---
GAGING WITH SMALL AMOUNT OF EMESIS, ORAL CARE GIVEN, I AND O'S COMPLETED,
--- NOTE | 2019-04-17 19:00 | NUR ---
ELIQUIS 10 MG PO GIVEN VIA OGT, TUBE CLAMPED
--- NOTE | 2019-04-17 19:03 | NUR ---
REPORT RECEIVED. PT SEDATED ON VENT. OGT TO SUCTION LIS. QUIGLEY PATENT WITH YELLOW URINE. OPENS EYES SPONTANEOUSLY AND ANSWERS YES/NO QUESTIONS BY NODING HEAD. NO S/S OF DISTRESS NOTED. WILL CONTINUE TO OBSERVE.
--- NOTE | 2019-04-17 21:55 | NUR ---
PT CONTINUES SEDATION OPENS EYE TO STIMUILI. NO S/S OF DISTRESS. WILL CONTINUE TO OBSERVE.
--- NOTE | 2019-04-17 23:40 | NUR ---
REASSESSMENT COMPLETED, SEE FLOW SHEET. CONTINUES SEDATION ON VENT. OPENS EYES TO STIMULI. WILL CONTINUE TO OBSERVE.
[2019-04-18] VITALS (22 sets, daily range): BP systolic 124–164; BP diastolic 55–80; Ht 160 cm; Wt 125.5 kg
--- NOTE | 2019-04-18 02:34 | NUR ---
PT WITHOUT S/S OF DISTRESS. WILL CONTINUE TO OBSERVE.
--- NOTE | 2019-04-18 03:45 | NUR ---
REASSESSMENT COMPLETED, SEE FLOW SHEET. WILL CONTINUE TO OBSERVE.
--- NOTE | 2019-04-18 05:00 | NUR ---
PT RECEIVED CHG BATH. LINENS CHANGED. PT TOLERATED WELL. WILL CONTINUE TO OBSERVE.
[2019-04-18 06:01] LABS: BASOPHILS 0 % (0-2); EOSINOPHILS 0.1 % (0-7); HEMATOCRIT 42.4 % (36.0-48.0); IMMATURE GRANULOCYTES 0.9 % (0-5); LYMPHOCYTES 5.7 % (15-50); MCH 25.1 pg (26.0-34.0); MCHC 30.7 g/dL (31.0-37.0); MCV 81.9 fL (80.0-100.0); MEAN PLATELET VOLUME 8.7 fL (7.4-10.4); MONOCYTES 4.9 % (2-11); NEUTROPHILS 88.4 % (40-80); PLATELET COUNT 195 10x3/uL (130-400); RBC 5.18 10x6/uL (4.00-5.40); RDW 18.4 % (11.5-14.5); WBC 19.2 10x3/uL (4.8-10.8)
[2019-04-18 06:31] LABS: APPEARANCE CLEAR (CLEAR); BILIRUBIN NEGATIVE (NEGATIVE); COLOR YELLOW (YELLOW); GLUCOSE NEGATIVE (NEGATIVE); KETONE NEGATIVE (NEGATIVE); NITRITE NEGATIVE (NEGATIVE); PROTEIN TRACE mg/dL (NEGATIVE); SPECIFIC GRAVITY 1.015 (1.005-1.020); UROBILINOGEN NORMAL (NORMAL)
[2019-04-18 06:32] LABS: ALBUMIN 2.9 g/dL (3.4-5.0); ALKALINE PHOSPHATASE 90 U/L (46-116); ALT (SGPT) 45 U/L (10-68); AMYLASE - SERUM 84 U/L (25-115); BILIRUBIN - DIRECT 0.31 mg/dL (0.00-0.30); BILIRUBIN - INDIRECT 0.53 mg/dL (0.00-1.00); BILIRUBIN - TOTAL 0.84 mg/dL (0.2-1.3); CALC OSMOLALITY 288 mosm/kg (275-300); CALCIUM 9.2 mg/dL (8.5-10.1); CARBON DIOXIDE 37.5 mmol/L (21.0-32.0); CHLORIDE - SERUM 94 mmol/L (98-107); CREATININE - SERUM 0.7 mg/dL (0.6-1.3); GLUCOSE 272 mg/dL (74-106); LIPASE 207 U/L (73-393); PHOSPHOROUS 4.5 mg/dL (2.5-4.9); POTASSIUM - SERUM 3.3 mmol/L (3.5-5.1); PROTEIN - SERUM 6.4 g/dL (6.4-8.2); SODIUM 136 mmol/L (136-145); UREA NITROGEN 31 mg/dL (7-18); eGFR NON AFRICAN AMERICAN > 90 mL/min (90-120)
[2019-04-18 06:34] LABS: BACTERIA FEW /hpf (NONE SEEN); EPITHELIAL CELLS NSEEN /hpf (0-5); WHITE CELLS - URINE 0-5 /hpf (0-5)
--- NOTE | 2019-04-18 07:00 | NUR ---
REC'D SEDATED W/FENTANYL AND PROPOFOL ON VENT. OPENS EYES TO VERBAL. ASSESSED.
--- NOTE | 2019-04-18 08:43 | NUR ---
AT 0840 CHANGED VENT TO CPAP / PER DR. GRIGSBY.
--- NOTE | 2019-04-18 09:40 | NUR ---
CPAP TRIAL ENDS- SEDATION RESUMED.
--- NOTE | 2019-04-18 09:43 | NUR ---
AT 0943 PLACED VENT BACK ON ORIGINAL SETTINGS BECAUSE PATIENT HAD PERIODS OF APNEA.
--- NOTE | 2019-04-18 11:00 | NUR ---
REASSESSED W/O CHANGES. VSS. REPOSITIONED. DR CLAUDY EL.
--- NOTE | 2019-04-18 13:00 | NUR ---
REMAINS SEDATED ON VENT. CM @ TIMES WITH FREQUENT ABBERANT BEATS.
--- NOTE | 2019-04-18 16:45 | NUR ---
CHG BATH GIVEN/ LINEN CHANGE. FAMILY IN AND UPDATED.
--- NOTE | 2019-04-18 19:00 | NUR ---
REPORT REC'D, PT CARE ASSUMED. ASSESSMENT COMPLETED PER FLOWSHEETS. PT SEDATED ON VENT, OPENS EYES AND FOLLOWS COMMANDS. SB ON CM WITH HR AT 58, LUNG SOUNDS DIMINISHED TO LLB, UNLABORED. CONT SEDATION PER ORDER FOR PT'S COMFORT ON VENT.LEFT UA PICC INTACT, CLEAN AND DRY, INFUSING IV FLUIDS PER ORDER. QUIGLEY CATH INTACT TO GRAVITY WITH C/Y DRAINAGE TO BAG. PPP. CONT TO MONITOR.
--- NOTE | 2019-04-18 21:00 | NUR ---
REPOSITIONED FOR COMFORT. MOUTH CARE PER VAP. SWABS USED. HOB UP. WEDGES IN USE FOR SUPPORT. HEELS ELEVATED. SIDE RAILS UP. WILL CONT TO MONITOR.
--- NOTE | 2019-04-18 23:00 | NUR ---
REASSESSMENT COMPLETED PER FLOWSHEETS. PT SEDATED ON VENT WITHOUT SIGNS OF DISTRESS AT THIS TIME. SB ON CM. NO ACUTE CHANGES NOTED. WILL CONT TO MONITOR.
[2019-04-19] VITALS (24 sets, daily range): BP systolic 126–170; BP diastolic 59–79
--- NOTE | 2019-04-19 01:00 | NUR ---
PT SEDATED ON VENT RESTING QUIETLY WITHOUT SIGNS OF DISTRESS. VSS.
--- NOTE | 2019-04-19 03:00 | NUR ---
REASSESSMENT COMPLETED.SEE FLOWSHEETS FOR ALL FINDINGS. PT SEDATED ON VENT WITHOUT DISTRESS. CONT SB ON MONITOR. NO ACUTE CHANGES NOTED. WILL CONT TO MONITOR.
[2019-04-19 04:55] LABS: HEMATOCRIT 40.6 % (36.0-48.0); HEMOGLOBIN 12.6 g/dL (12-16); MCH 25.4 pg (26.0-34.0); MCV 81.7 fL (80.0-100.0); MEAN PLATELET VOLUME 8.8 fL (7.4-10.4); PLATELET COUNT 190 10x3/uL (130-400); RBC 4.97 10x6/uL (4.00-5.40); RDW 18.3 % (11.5-14.5); WBC 21.2 10x3/uL (4.8-10.8)
--- NOTE | 2019-04-19 05:00 | NUR ---
BATH COMPLETED.MOUTH CARE DONE. SKIN CARE PROVIDED. LINEN AND GOWN CHANGED. PT AYDEN WELL. CPOC.
[2019-04-19 05:05] LABS: CALC OSMOLALITY 286 mosm/kg (275-300); CALCIUM 9.1 mg/dL (8.5-10.1); CARBON DIOXIDE 38.6 mmol/L (21.0-32.0); CHLORIDE - SERUM 95 mmol/L (98-107); CREATININE - SERUM 0.6 mg/dL (0.6-1.3); GLUCOSE 256 mg/dL (74-106); POTASSIUM - SERUM 3.9 mmol/L (3.5-5.1); SODIUM 136 mmol/L (136-145); UREA NITROGEN 29 mg/dL (7-18); eGFR NON AFRICAN AMERICAN > 90 mL/min (90-120)
[2019-04-19 05:20] LABS: LYMPHOCYTES 17 % (15-50); MONOCYTES 14 % (2-11); NEUTROPHILS 65 % (40-80); PLATELET ESTIMATE NORMAL
--- NOTE | 2019-04-19 07:00 | NUR ---
REC'D SEDATED ON VENT, VSS, OPENS EYES UPON ENTRY TO ROOM. REPOSITIONED.
--- NOTE | 2019-04-19 08:25 | NUR ---
SEDATION PAUSED FOR CPAP TRIAL.
--- NOTE | 2019-04-19 08:27 | NUR ---
AT 8025 TURNED OFF SEDATION AND CHANGED VENT TO CPAP 10/5 FOR CPAP TRIALS.
--- NOTE | 2019-04-19 08:45 | NUR ---
C/O HOT- TEMP 99.1 AX. FAN PROVIDED. NOTE SHORT RUNS- APPROX 3-4 SEC- V-TACH VS UCAFIB. WILL MONITOR.
--- NOTE | 2019-04-19 09:00 | NUR ---
TOLERATING CPAP. REPOSITIONED, VSS.
--- NOTE | 2019-04-19 11:00 | NUR ---
REPOSITIONED. REASSESSED W/O CHANGES. INDICATES THAT SHE IS HUNGRY.
--- NOTE | 2019-04-19 11:30 | NUR ---
DR LOCO ROUNDS- ORDER REC'D.
--- NOTE | 2019-04-19 13:10 | NUR ---
DR LOCO ROUNDS- ORDER REC'D TO EXTUBATE.
--- NOTE | 2019-04-19 14:15 | NUR ---
EXTUBATED TO BI-PAP PER RT. OGT ALSO REMOVED. VSS.
--- NOTE | 2019-04-19 15:00 | NUR ---
REASSESSED W/O CHANGES. VSS, REPOSITIONED.
--- NOTE | 2019-04-19 16:51 | NUR ---
FAMILY IN AND UPDATED.
--- NOTE | 2019-04-19 18:30 | NUR ---
GIVEN ELIQUIS W/SIP H2O- AYDEN WELL.
[2019-04-20] VITALS (23 sets, daily range): BP systolic 117–163; BP diastolic 56–81
--- NOTE | 2019-04-20 01:00 | NUR ---
PT ASSISTED OOB TO BEDSIDE COMMODE. VERY WEAK. BECAME NAUSEATED WHILE UP AND VOMITED. UNABLE TO HAVE BM. SHE DID PASS SOME GAS.
[2019-04-20 05:47] LABS: BASOPHILS 0 % (0-2); EOSINOPHILS 0.5 % (0-7); HEMATOCRIT 42.5 % (36.0-48.0); HEMOGLOBIN 12.8 g/dL (12-16); IMMATURE GRANULOCYTES 0.7 % (0-5); LYMPHOCYTES 6.7 % (15-50); MCH 25.2 pg (26.0-34.0); MCHC 30.1 g/dL (31.0-37.0); MCV 83.7 fL (80.0-100.0); MEAN PLATELET VOLUME 8.9 fL (7.4-10.4); MONOCYTES 6.7 % (2-11); NEUTROPHILS 85.4 % (40-80); PLATELET COUNT 205 10x3/uL (130-400); RBC 5.08 10x6/uL (4.00-5.40); RDW 18.2 % (11.5-14.5); WBC 22.4 10x3/uL (4.8-10.8)
[2019-04-20 06:00] LABS: CALC OSMOLALITY 285 mosm/kg (275-300); CALCIUM 9.3 mg/dL (8.5-10.1); CHLORIDE - SERUM 95 mmol/L (98-107); CREATININE - SERUM 0.6 mg/dL (0.6-1.3); GLUCOSE 234 mg/dL (74-106); POTASSIUM - SERUM 3.5 mmol/L (3.5-5.1); SODIUM 136 mmol/L (136-145); UREA NITROGEN 30 mg/dL (7-18); eGFR NON AFRICAN AMERICAN > 90 mL/min (90-120)
[2019-04-20 06:30] LABS: CARBON DIOXIDE 40.8 mmol/L (21.0-32.0)
--- NOTE | 2019-04-20 09:16 | NUR ---
0700 - RECIEVED PATIENT, BIPAP 40%, VITALS STABLE, PICC IN LEFT ARM, DRESSING CDI, NS INFUSING, WEAK PULSES DOPPLERED, QUIGLEY DRAINING YELLOW URINE, CALL LIGHT IN REACH, BED LOW, SEE SHIFT ASSESSMENT FOR DETAILS. 0900 - AM MEDS GIVEN WITH SIPS OF WATER, ORAL CARE DONE.
--- NOTE | 2019-04-20 09:24 | NUR ---
NUTRITION F/U NURSING REPORTS PT EXTUBATED AND ON BIPAP. CURRENTLY NPO WITH NO NUTRITION SUPPORT. AWAITING RESULTS OF KUB. WILL CONTINUE TO MONITOR PT PROGRESS, ASSIST WITH NUTRITION SUPPORT IF NEEDED. RD FOLLOWING
--- NOTE | 2019-04-20 11:00 | NUR ---
CHG BATH GIVEN, SEEN BY RESPIRATORY
[2019-04-20 11:08] LABS: FUNGUS MYCOLOGY CULTURE Preliminary report (()); FUNGUS STAIN RESULT 1 Yeast observed (())
--- NOTE | 2019-04-20 13:00 | NUR ---
ZOSYN GIVEN AFTER VANC INFUSED. VITALS STABLE, AAOX4
--- NOTE | 2019-04-20 16:00 | NUR ---
DR JAMIL IN ROOM WITH PATIENT FOR ASSESSMENT
--- NOTE | 2019-04-20 17:09 | NUR ---
FAMILY AT BEDSIDE, PT REPOSITIONED TO LEFT SIDE, VITALS STABLE, NO FURTHER COMPLAINTS NOTED.
--- NOTE | 2019-04-20 19:25 | NUR ---
PT RECEIVED WITH EYES OPEN, ALERT AND ORIENTED. VSS. ON N/C 5LPM. ASSESSMENT COMPLETED. SEE FLOW SHEET. CALL LIGHT IN REACH. WILL CONTINUE TO OBSERVE.
--- NOTE | 2019-04-20 21:07 | NUR ---
PT WITH EYES OPEN WATCHING TV. FRIEND OF FAMILY AT BEDSIDE FOR APPROXIMATELY 10-15 MINUTE. PT WITH EYES CLOSED AT THIS TIME. VSS. CALL LIGHT IN REACH. WILL CONTINUE TO OBSERVE.
--- NOTE | 2019-04-20 23:34 | NUR ---
PT WITH EYES CLOSED AND CHEST RISING. REASSESSMENT COMPLETED. SEE FLOW SHEET. ON N/C AND CHANGED TO BIPAP. WILL CONTINUE TO OBSERVE.
[2019-04-21] VITALS (23 sets, daily range): BP systolic 124–169; BP diastolic 56–93
--- NOTE | 2019-04-21 02:23 | NUR ---
PT RESTING WITH EYES CLOSED AND CHEST RISING. ON BIPAP, TOLERATING WELL. CALL LIGHT IN REACH. WILL CONTINUE TO OBSERVE.
--- NOTE | 2019-04-21 03:17 | NUR ---
REASSESSMENT COMPLETED, SEE FLOW SHEET. CONTINUES BIPAP, TOLERATING WELL. CALL LIGHT IN REACH. WILL CONTINUE TO OBSERVE.
[2019-04-21 06:06] LABS: BASOPHILS 0 % (0-2); EOSINOPHILS 0.2 % (0-7); HEMATOCRIT 42.6 % (36.0-48.0); HEMOGLOBIN 12.6 g/dL (12-16); IMMATURE GRANULOCYTES 0.5 % (0-5); LYMPHOCYTES 4.8 % (15-50); MCH 25.4 pg (26.0-34.0); MCHC 29.6 g/dL (31.0-37.0); MEAN PLATELET VOLUME 8.9 fL (7.4-10.4); MONOCYTES 3.7 % (2-11); NEUTROPHILS 90.8 % (40-80); PLATELET COUNT 228 10x3/uL (130-400); RBC 4.96 10x6/uL (4.00-5.40); RDW 18.3 % (11.5-14.5); WBC 19.6 10x3/uL (4.8-10.8)
[2019-04-21 06:12] LABS: MCV 85.9 fL (80.0-100.0)
[2019-04-21 06:14] LABS: CALC OSMOLALITY 289 mosm/kg (275-300); CALCIUM 9.2 mg/dL (8.5-10.1); CHLORIDE - SERUM 98 mmol/L (98-107); CREATININE - SERUM 0.7 mg/dL (0.6-1.3); GLUCOSE 195 mg/dL (74-106); SODIUM 140 mmol/L (136-145); UREA NITROGEN 30 mg/dL (7-18); eGFR NON AFRICAN AMERICAN > 90 mL/min (90-120)
[2019-04-21 06:24] LABS: POTASSIUM - SERUM 4.3 mmol/L (3.5-5.1)
[2019-04-21 06:25] LABS: CARBON DIOXIDE 41.5 mmol/L (21.0-32.0)
--- NOTE | 2019-04-21 06:27 | NUR ---
PT CHANGED TO N/C FROM BIPAP AND BATH GIVEN. LINENS CHANGED. PT TOLERATED WELL. PT ABLE TO ASSIST WITH ROLLING FOR PAD CHANGE. PT ALSO ASSISTED WITH BATH. CALL LIGHT IN REACH. WILL CONTINUE TO OBSERVE.
--- NOTE | 2019-04-21 07:54 | NUR ---
shift assessment complete. pt c/o back pain. tylenol and morning medications given. pt has been given clear liquid tray. tolerating well.
--- NOTE | 2019-04-21 08:11 | NUR ---
DR LOCO BY TO SEE PATIENT. START INCENTIVE SPIROMETRY. WANTS PT UP TO CHAIR TODAY
--- NOTE | 2019-04-21 09:38 | NUR ---
PT UP IN CHAIR AT THIS TIME.
--- NOTE | 2019-04-21 12:52 | NUR ---
1100 RECIEVED PT UP IN CHAIR, NO NEEDS NOTED 1250 ATE 75% LUNCH, DENIES NAUSEA
--- NOTE | 2019-04-21 15:55 | NUR ---
1500 ASSISTED TO BED BY PT
--- NOTE | 2019-04-21 17:00 | NUR ---
CHG BATH GIVEN, PT SITTING UP IN BED, VITALS STABLE
[2019-04-22] VITALS (16 sets, daily range): BP systolic 103–169; BP diastolic 55–99
[2019-04-22 06:33] LABS: HEMATOCRIT 42.8 % (36.0-48.0); HEMOGLOBIN 12.7 g/dL (12-16); MCH 25.2 pg (26.0-34.0); MCHC 29.7 g/dL (31.0-37.0); MCV 85.1 fL (80.0-100.0); MEAN PLATELET VOLUME 8.4 fL (7.4-10.4); PLATELET COUNT 230 10x3/uL (130-400); RBC 5.03 10x6/uL (4.00-5.40); RDW 18.1 % (11.5-14.5); WBC 21.6 10x3/uL (4.8-10.8)
[2019-04-22 06:47] LABS: ALBUMIN 2.9 g/dL (3.4-5.0); ALKALINE PHOSPHATASE 80 U/L (46-116); ALT (SGPT) 64 U/L (10-68); BILIRUBIN - TOTAL 0.87 mg/dL (0.2-1.3); CALC OSMOLALITY 284 mosm/kg (275-300); CALCIUM 9.1 mg/dL (8.5-10.1); CHLORIDE - SERUM 96 mmol/L (98-107); GLUCOSE 181 mg/dL (74-106); POTASSIUM - SERUM 4.2 mmol/L (3.5-5.1); PROTEIN - SERUM 6.2 g/dL (6.4-8.2); SODIUM 138 mmol/L (136-145); UREA NITROGEN 24 mg/dL (7-18)
[2019-04-22 06:48] LABS: CREATININE - SERUM 0.5 mg/dL (0.6-1.3); eGFR NON AFRICAN AMERICAN > 90 mL/min (90-120)
[2019-04-22 06:52] LABS: LYMPHOCYTES 14 % (15-50); MONOCYTES 3 % (2-11); NEUTROPHILS 81 % (40-80); PLATELET ESTIMATE NORMAL
[2019-04-22 06:57] LABS: CARBON DIOXIDE 40.7 mmol/L (21.0-32.0)
--- NOTE | 2019-04-22 07:00 | NUR ---
REC'D ASSISTING UP TO CHAIR, MAXIMAL ASSIST W/ 3 RNs. PLEASANT- DENIES ANY NEED AT THIS TIME.
--- NOTE | 2019-04-22 07:00 | NUR ---
OOB TO CHAIR. CANNOT BEAR VERY MUCH WT. ALMOST A TOTAL LIFT. BED LINEN CHANGED.
--- NOTE | 2019-04-22 08:00 | NUR ---
ASSESSED, VSS. DIET ADVANCED TO FULL LIQU.
--- NOTE | 2019-04-22 08:15 | NUR ---
DR CLAUDY EL- STATES SHE MAY TRANSFER OUT OF ICU FROM HIS PERSPECTIVE.
--- NOTE | 2019-04-22 10:00 | NUR ---
REMAINS UP IN CHAIR. VSS
--- NOTE | 2019-04-22 12:15 | NUR ---
DR PEÑA ROUNDS- ORDERS REC'D. REMAINS UP IN CHAIR W/O ADVERSE. FAMILY IN AND UPDATTED.
--- NOTE | 2019-04-22 12:20 | NUR ---
DR FERRELL OKs TRANSFER.
--- NOTE | 2019-04-22 13:08 | NUR ---
NUTRITION F/U PT TOLERATING CLEAR LIQUID DIET THIS AM, DIET ADVANCED TO FULL LIQUID. WILL MONITOR DIET ADVANCEMENT, PO INTAKE. RD FOLLOWING
--- NOTE | 2019-04-22 13:50 | NUR ---
HYDRALAZINE FOR BP 163/106 REMAINS UP IN CHAIR.
--- NOTE | 2019-04-22 16:30 | NUR ---
PAIN MED GIVEN - BACK HURTS.
--- NOTE | 2019-04-22 17:53 | NUR ---
WIL PICC DRSG CHANGED.
--- NOTE | 2019-04-22 18:03 | NUR ---
REPORT CALLED TO LC PADILLA FOR TRANSFER TO MS ROOM [id number].
[2019-04-23 01:15] VITALS: BP 127/70
--- NOTE | 2019-04-23 02:13 | NUR ---
I have reviewed this patient and I concur with the Shift Assessment completed by the Licensed Practical Nurse today this shift.
--- NOTE | 2019-04-23 02:30 | NUR ---
PT RESTING IN BED. EYES CLOSED. NO SIGNS OF DISTRESS. BREATHING EVEN AND UNLABORED. PT STATES NO PROBLEMS AT THIS TIME. 4LO2 NASAL CANNULA. BOWEL SOUNDS ACTIVE PT STATES PASSING GAS BUT NO BM IN A COUPLE OF DAYS. QUIGLEY IN PLACE CLEAN DRY AND INTACT. WILL CONTINUE PLAN OF CARE. CALL LIGHT IN REACH. BED LOWERED AND LOCKED.
[2019-04-23 04:51] VITALS: BP 108/54
[2019-04-23 04:51] LABS: BASOPHILS 0 % (0-2); EOSINOPHILS 1.5 % (0-7); HEMATOCRIT 43.1 % (36.0-48.0); HEMOGLOBIN 12.8 g/dL (12-16); IMMATURE GRANULOCYTES 0.6 % (0-5); LYMPHOCYTES 16.5 % (15-50); MCH 25.3 pg (26.0-34.0); MCHC 29.7 g/dL (31.0-37.0); MCV 85.2 fL (80.0-100.0); MEAN PLATELET VOLUME 8.6 fL (7.4-10.4); MONOCYTES 8.6 % (2-11); NEUTROPHILS 72.8 % (40-80); PLATELET COUNT 217 10x3/uL (130-400); RBC 5.06 10x6/uL (4.00-5.40); RDW 18.2 % (11.5-14.5); WBC 19.3 10x3/uL (4.8-10.8)
[2019-04-23 05:05] LABS: ALKALINE PHOSPHATASE 87 U/L (46-116); ALT (SGPT) 65 U/L (10-68); BILIRUBIN - TOTAL 0.86 mg/dL (0.2-1.3); CALC OSMOLALITY 280 mosm/kg (275-300); CALCIUM 8.9 mg/dL (8.5-10.1); CARBON DIOXIDE 39.8 mmol/L (21.0-32.0); CHLORIDE - SERUM 97 mmol/L (98-107); GLUCOSE 143 mg/dL (74-106); PROTEIN - SERUM 5.9 g/dL (6.4-8.2); SODIUM 138 mmol/L (136-145); UREA NITROGEN 20 mg/dL (7-18)
[2019-04-23 05:20] LABS: CREATININE - SERUM 0.7 mg/dL (0.6-1.3); POTASSIUM - SERUM 3.5 mmol/L (3.5-5.1); eGFR NON AFRICAN AMERICAN > 90 mL/min (90-120)
--- NOTE | 2019-04-23 07:35 | NUR ---
PT RESTING IN BED, ALERT AND ORIENTED. NO C/O PAIN. NO S/S OF ACUTE DISTRESS NOTED. ON TELEMETRY 70 SR. PICC TO LEFT UPPER ARM, NS INFUSING @ 50ML/HR, ZOFRAN 4.7 INFUSING. SITE PATENT WITHOUT REDNESS OR SWELLING. PT ACHS. ON 4L O2, NC. QUIGLEY CATH PRESENT, URINE SLIGHT CONCENTRATED. POTASSIUM 3.5 THIS AM, COVERED BY PREVIOUS SHIFT. PT DENIES ANYTHING FURTHER AT THIS TIME. CALL LIGHT IN REACH. WILL CONTINUE TO MONITOR.
[2019-04-23 10:01] VITALS: BP 103/63
[2019-04-23 12:43] VITALS: BP 128/63
--- NOTE | 2019-04-23 18:08 | NUR ---
PT RESTING IN BED, ALERT AND ORIENTED. NO C/O PAIN. NO S/S OF ACUTE DISTRESS NOTED. PT DENIES ANYTHING FURTHER AT THIS TIME. CALL LIGHT IN REACH. WILL CONTINUE TO MONITOR.
--- NOTE | 2019-04-23 18:50 | NUR ---
PT IS WITHOUT NEEDS AT PRESENT. CALL LIGHT IN REACH
[2019-04-23 19:09] VITALS: BP 125/75
[2019-04-23 20:00] VITALS: BP 136/70
--- NOTE | 2019-04-23 20:44 | NUR ---
AWAKE,ALERT.NO DISTRESS NOTED. COMPLAINTS OF PAIN TO BACK. NORCO GIVEN PER ORDERS. IV INFUSING TO RIGHT PICC WITHOUT REDNESS OR EDEMA NOTED. ZOFRAN INFUSING @ 4.7 CC/HR. NO COMPLAITNS OF NAUSEA. FAMILY AT BEDSIDE. CL IN REACH
[2019-04-24] VITALS: BP 105/56; BP 134/60
[2019-04-24 04:00] VITALS: BP 116/51
--- NOTE | 2019-04-24 07:47 | NUR ---
IN BED WITH EYES CLOSED, AROUSED EASILY TO VOICE. DENIES PAIN AT THIS TIME. WAITING ON MORNING MEAL, WILL NOTE ANY CHANGE.
[2019-04-24 08:26] LABS: BASOPHILS 0 % (0-2); EOSINOPHILS 1.7 % (0-7); IMMATURE GRANULOCYTES 0.5 % (0-5); MCH 25.5 pg (26.0-34.0); MCHC 30.2 g/dL (31.0-37.0); MCV 84.3 fL (80.0-100.0); MEAN PLATELET VOLUME 8.6 fL (7.4-10.4); MONOCYTES 6.2 % (2-11); NEUTROPHILS 74.6 % (40-80); PLATELET COUNT 202 10x3/uL (130-400); RDW 18.3 % (11.5-14.5); WBC 17.8 10x3/uL (4.8-10.8)
[2019-04-24 08:30] VITALS: BP 157/98
[2019-04-24 08:39] LABS: ALBUMIN 3.1 g/dL (3.4-5.0); ALKALINE PHOSPHATASE 91 U/L (46-116); ALT (SGPT) 61 U/L (10-68); BILIRUBIN - TOTAL 1.11 mg/dL (0.2-1.3); CALC OSMOLALITY 274 mosm/kg (275-300); CALCIUM 8.9 mg/dL (8.5-10.1); CARBON DIOXIDE 35.4 mmol/L (21.0-32.0); CHLORIDE - SERUM 97 mmol/L (98-107); CREATININE - SERUM 0.7 mg/dL (0.6-1.3); GLUCOSE 137 mg/dL (74-106); PROTEIN - SERUM 6.3 g/dL (6.4-8.2); SODIUM 136 mmol/L (136-145); UREA NITROGEN 15 mg/dL (7-18); eGFR NON AFRICAN AMERICAN > 90 mL/min (90-120)
[2019-04-24 08:41] LABS: POTASSIUM - SERUM 3.6 mmol/L (3.5-5.1)
[2019-04-24 12:32] VITALS: BP 132/70
--- NOTE | 2019-04-24 14:02 | NUR ---
QUIGLEY CATH DC'D, TIP INTACT. WILL NOTE ANY CHANGE.
--- NOTE | 2019-04-24 15:26 | NUR ---
Nutrition Follow Up: Chart reviewed Diet: ADA PO Intake: 80% meal avg Wt loss noted Labs reviewed - Glucose elevated Meds noted including Lasix, Humulin, Prednisone Rec continue current diet. RD following.
[2019-04-24 16:51] VITALS: BP 190/90
--- NOTE | 2019-04-24 18:40 | NUR ---
PT RESTING IN BED, ALERT AND ORIENTED. GRAND-DAUGHTER AT BEDSIDE. NO C/O PAIN. PT STATED SHE HAD A LARGE BOWEL MOVEMENT EARLIER, AND HAS VOIDED SINCE QUIGLEY REMOVED. NO S/S OF ACUTE DISTRESS NOTED. CALL LIGHT IN REACH. PT DENIES ANYTHING FURTHER AT THIS TIME. WILL CONTINUE TO MONITOR.
[2019-04-24 20:00] VITALS: BP 111/58
[2019-04-25] VITALS: BP 115/53
--- NOTE | 2019-04-25 03:00 | NUR ---
I have reviewed this patient and I concur with the Shift Assessment completed by the Licensed Practical Nurse today this shift.
[2019-04-25 07:12] LABS: BASOPHILS 0.1 % (0-2); EOSINOPHILS 2.4 % (0-7); HEMATOCRIT 40.7 % (36.0-48.0); HEMOGLOBIN 12.3 g/dL (12-16); IMMATURE GRANULOCYTES 0.4 % (0-5); LYMPHOCYTES 21.7 % (15-50); MCH 25.5 pg (26.0-34.0); MCHC 30.2 g/dL (31.0-37.0); MCV 84.4 fL (80.0-100.0); MEAN PLATELET VOLUME 9.2 fL (7.4-10.4); MONOCYTES 7.9 % (2-11); NEUTROPHILS 67.5 % (40-80); PLATELET COUNT 223 10x3/uL (130-400); RBC 4.82 10x6/uL (4.00-5.40); RDW 18.4 % (11.5-14.5); WBC 13.9 10x3/uL (4.8-10.8)
[2019-04-25 07:28] LABS: ALBUMIN 2.9 g/dL (3.4-5.0); ALKALINE PHOSPHATASE 87 U/L (46-116); ALT (SGPT) 52 U/L (10-68); BILIRUBIN - TOTAL 0.92 mg/dL (0.2-1.3); CALCIUM 8.5 mg/dL (8.5-10.1); CARBON DIOXIDE 37.8 mmol/L (21.0-32.0); CHLORIDE - SERUM 97 mmol/L (98-107); CREATININE - SERUM 0.8 mg/dL (0.6-1.3); GLUCOSE 125 mg/dL (74-106); PROTEIN - SERUM 5.9 g/dL (6.4-8.2); SODIUM 139 mmol/L (136-145); eGFR NON AFRICAN AMERICAN 79 mL/min (90-120)
[2019-04-25 07:29] LABS: CALC OSMOLALITY 277 mosm/kg (275-300); UREA NITROGEN 11 mg/dL (7-18)
[2019-04-25 08:26] VITALS: BP 129/56
--- NOTE | 2019-04-25 09:00 | NUR ---
PT AAOX4, FAMILY AT BEDSIDE, PT REQUESTING HELP TO BEDSIDE COMMODE DONE AT THIS TIME, NO OTHER NEEDS EXPRSSED WILL CONTINUE TO MONITOR CL IN REACH
[2019-04-25 12:46] VITALS: BP 119/63
--- NOTE | 2019-04-25 17:03 | NUR ---
I have reviewed this patient and I concur with the Shift Assessment completed by the Licensed Practical Nurse today this shift.
[2019-04-25 17:52] VITALS: BP 115/74
--- NOTE | 2019-04-25 19:30 | NUR ---
PT ALERT AND ORIENTED. GRANDDAUGHTER AT BEDSIDE. STATES PAIN IS ALWAYS A 9, "BUT I AM USED TO THAT". HAS LEFT UPPER ARM PICC LINE THAT IS PATENT AND INFUSING ZOFRAN AND NS. WEARING 4L O2. WEARING TELE MONITOR AND PULSE IS 66 SINUS RHYTHM. BILATERAL DIMINISHED LUNG SOUNDS IN LOWER LOBES. HAS CALL LIGHT IN HAND. VERBALIZES UNDERSTANDING OF WHEN TO USE. BED LOCKED AND LOWERED. CPOC.
[2019-04-25 20:00] VITALS: BP 114/63
--- NOTE | 2019-04-25 23:30 | NUR ---
PATIENT COMPLAINING OF LEG PAIN. PROVIDED WITH NORCO. TOLERATED WELL.
[2019-04-26] VITALS: BP 133/68
--- NOTE | 2019-04-26 02:55 | NUR ---
I have reviewed this patient and I concur with the Shift Assessment completed by the Licensed Practical Nurse today this shift.
[2019-04-26 04:00] VITALS: BP 155/76
[2019-04-26 06:42] LABS: BASOPHILS 0 % (0-2); EOSINOPHILS 2.3 % (0-7); HEMATOCRIT 41.5 % (36.0-48.0); HEMOGLOBIN 12.6 g/dL (12-16); IMMATURE GRANULOCYTES 0.4 % (0-5); LYMPHOCYTES 22.8 % (15-50); MCH 25.7 pg (26.0-34.0); MCHC 30.4 g/dL (31.0-37.0); MCV 84.7 fL (80.0-100.0); MONOCYTES 7.1 % (2-11); NEUTROPHILS 67.4 % (40-80); PLATELET COUNT 217 10x3/uL (130-400); RDW 18.3 % (11.5-14.5); WBC 11.5 10x3/uL (4.8-10.8)
[2019-04-26 07:02] LABS: ALBUMIN 2.9 g/dL (3.4-5.0); ALKALINE PHOSPHATASE 83 U/L (46-116); ALT (SGPT) 48 U/L (10-68); BILIRUBIN - TOTAL 0.69 mg/dL (0.2-1.3); CALCIUM 8.8 mg/dL (8.5-10.1); CHLORIDE - SERUM 100 mmol/L (98-107); CREATININE - SERUM 0.6 mg/dL (0.6-1.3); GLUCOSE 145 mg/dL (74-106); PROTEIN - SERUM 5.9 g/dL (6.4-8.2); SODIUM 139 mmol/L (136-145); eGFR NON AFRICAN AMERICAN > 90 mL/min (90-120)
[2019-04-26 07:06] LABS: CALC OSMOLALITY 278 mosm/kg (275-300); POTASSIUM - SERUM 3.3 mmol/L (3.5-5.1); UREA NITROGEN 8 mg/dL (7-18)
[2019-04-26 09:10] VITALS: BP 122/62
[2019-04-26 12:12] VITALS: BP 132/72
[2019-04-26] MEDS ORDERED: ELIQUIS5 MG PO (12:26)
[2019-04-26] MEDS ORDERED: BROVANA15 MCG/2 M INH (12:26)
[2019-04-26] MEDS ORDERED: SINGULAIR10 MG PO (12:27)
[2019-04-26] MEDS ORDERED: K-DUR20 MEQ PO (12:27)
[2019-04-26] MEDS ORDERED: DALIRESP500 MCG PO (12:27)
[2019-04-26] MEDS ORDERED: Rythmol NG (12:30)
--- NOTE | 2019-04-26 13:24 | NUR ---
PT ATE ALL OF HER LUNCH NO C/O OF NAUSEA AND VOMITING
--- NOTE | 2019-04-26 13:37 | NUR ---
LEFT UPPER ARM PICC LINE 51CC REMOVED PER WHITING CAN WORKER GINA PAUL W/O COMPLAINT, FAMILY AT BEDSIDE
--- NOTE | 2019-04-26 13:50 | MORECARE ---
CASE MANAGEMENT DISCHARGE SUMMARY PATIENT: DERIC CARBALLO UNIT: [id number] ADM DATE: 04/08/19 AGE: 53 : 63 SEX: F ROOM/BED: D.2213 AUTHOR: CONSTANTINDOC PHYSICIAN: REFERRING PHYSICIAN: AP DANIELSON MD DATE OF SERVICE: 04/26/19 Discharge Plan Patient Name: DERIC CARBALLO Facility: [facility]:[place] : 1965 Planned Disposition: Anticipated Discharge Date: Discharge Date: Expected LOS: Initial Reviewer: [email or web address] Initial Review Date: 04/08/2019 Generated: 04/26/19 2:49 pm Comments DCP- Discharge Planning Updated by [email or web address]: Lilliana Martinez on 04/26/19 12:[address] Patient Name: DERIC CARBALLO Admission Status: ER Accout number: [id number] Admission Date: 04-08-2019 : 1965 Admission Diagnosis:EMBOLISM AND THROMBOSIS OF ARTERIES OF THE UPPER EXTREM Attending: AP DANIELSON Current LOS: 18 Anticipated DC Date: Planned Disposition: Primary Insurance: MEDICAID [place] Discharge Planning Comments: CM CONSULT FOR DC SET UP FOR PT/OT. RAJAN SIGNED FOR BRADLY . INFORMATION SENT TO [facility] FOR ADMISSION Travel Services Professional: Lilliana Martinez DCP- Discharge Planning Updated by [email or web address]: Linda Todd on 04/09/19 4:[address] Patient Name: DERIC CARBALLO Admission Status: ER Accout number: [id number] Admission Date: 04-08-2019 : 1965 Admission Diagnosis: Attending: AP DANIELSON Current LOS: 1 Anticipated DC Date: Planned Disposition: Primary Insurance: MEDICAID [place] Discharge Planning Comments: CM met with patient's daughter Starla to complete initial dc planning assessment. Patient is currently sedated and on vent. CM educated Starla on the CM role and verbal consent given by patient to complete assessment. Patient lives at home alone in a camper where she is independent with her care. At discharge patient plans to return home and feels this is a safe discharge. CM discussed availability of home health, rehab services, and medical equipment. Her daughter will be her water tanker driver home. Patient has a nebulizer and home o2 (uncertain of company) Starla denied known discharge needs at this time. CM will continue to follow and will assist as needed with dc plans/needs. Travel Services Professional: Linda Todd DCPIA - Discharge Planning Initial Assessment Updated by [email or web address]: Linda Todd on 04/09/19 5:38 pm * How many steps to enter\exit or inside your home? * PCP [facility] * [facility] * Preadmission Environment Home Alone * ADLs Independent * Other Equipment HOME 02 (NO PORTABLE), NEBULIZER * List name and contact numbers for known caregivers / representatives who currently or will assist patient after discharge: JARON MICHELLE - DAUGHTER- [phone] * Verbal permission to speak to the caregivers and representatives has been obtained from the patient. N/A * Community resources currently utilized None * Additional services required to return to the preadmission environment? No * Can the patient safely return to the preadmission environment? Yes * Has this patient been hospitalized within the prior 30 days at any hospital? No Last DP export: 04/09/19 4:45 p Patient Name: DERIC CARBALLO Page [id number] at 1350 All edits/amendments must be made on the electronic document DICTATION DATE: 04/26/191348 [facility] MANAGER: LAVON 04/26/191348 RPT#: [id number] DC DATE: STATUS: ADM IN [facility] [address] [place] [address] END OF REPORT
--- NOTE | 2019-04-26 13:50 | NUR ---
PT'S LOCAL PHARMACY, [facility] CLOSED TODAY. DISCUSSED MEDICATIONS WITH PT. WILL CALL NEEDED PRESCRIPTIONS, ELIQUIS AND RHYTHMOL TO [facility], AND SHE CAN GET THE OTHERS AT HER LOCAL PHARMACY TOMORROW.
--- NOTE | 2019-04-26 14:30 | NUR ---
PT LEAVING VIA WHEELCHAIR VIA HOSTPIAL STAFF VIA PRIVATE VECHILE IN STABLE CONDITION
--- NOTE | 2019-04-28 12:26 | MORECARE ---
CASE MANAGEMENT DISCHARGE SUMMARY PATIENT: DERIC CARBALLO UNIT: [id number] ADM DATE: 04/08/19 AGE: 53 : 63 SEX: F ROOM/BED: D.2213 AUTHOR: CONSTANTINDOC PHYSICIAN: REFERRING PHYSICIAN: AP DANIELSON MD DATE OF SERVICE: 04/28/19 Discharge Plan Patient Name: DERIC CARBALLO Facility: [facility]:[place] : 1965 Planned Disposition: Anticipated Discharge Date: Discharge Date: 04/26/2019 Expected LOS: 0 Initial Reviewer: [email or web address] Initial Review Date: 04/08/2019 Generated: 04/28/19 1:26 pm Comments DCP- Discharge Planning Updated by [email or web address]: Lilliana Martinez on 04/26/19 12:[address] Patient Name: DERIC CARBALLO Admission Status: ER Accout number: [id number] Admission Date: 04-08-2019 : 1965 Admission Diagnosis:EMBOLISM AND THROMBOSIS OF ARTERIES OF THE UPPER EXTREM Attending: AP DANIELSON Current LOS: 18 Anticipated DC Date: Planned Disposition: Primary Insurance: MEDICAID [place] Discharge Planning Comments: CM CONSULT FOR DC SET UP FOR PT/OT. RAJAN SIGNED FOR [facility]AMOR[facility]. INFORMATION SENT TO [facility] FOR ADMISSION Aids Counselor: Lilliana Martinez DCP- Discharge Planning Updated by [email or web address]: Linda Todd on 04/09/19 4:[address] Patient Name: DERIC CARBALLO Admission Status: ER Accout number: [id number] Admission Date: 04-08-2019 : 1965 Admission Diagnosis: Attending: AP DANIELSON Current LOS: 1 Anticipated DC Date: Planned Disposition: Primary Insurance: MEDICAID [place] Discharge Planning Comments: CM met with patient's daughter Starla to complete initial dc planning assessment. Patient is currently sedated and on vent. CM educated Starla on the CM role and verbal consent given by patient to complete assessment. Patient lives at home alone in a camper where she is independent with her care. At discharge patient plans to return home and feels this is a safe discharge. CM discussed availability of home health, rehab services, and medical equipment. Her daughter will be her class a truck driver home. Patient has a nebulizer and home o2 (uncertain of company) Starla denied known discharge needs at this time. CM will continue to follow and will assist as needed with dc plans/needs. Aids Counselor: Linda Todd DCPIA - Discharge Planning Initial Assessment Updated by [email or web address]: Linda Todd on 04/09/19 5:38 pm * How many steps to enter\exit or inside your home? * PCP [facility] * Pharmacy [facility] * Preadmission Environment Home Alone * ADLs Independent * Other Equipment HOME 02 (NO PORTABLE), NEBULIZER * List name and contact numbers for known caregivers / representatives who currently or will assist patient after discharge: JARON MICHELLE - DAUGHTER- [phone] * Verbal permission to speak to the caregivers and representatives has been obtained from the patient. N/A * Community resources currently utilized None * Additional services required to return to the preadmission environment? No * Can the patient safely return to the preadmission environment? Yes * Has this patient been hospitalized within the prior 30 days at any hospital? No Last DP export: 04/26/19 12:50 p Patient Name: DERIC CARBALLO Page 23436 at 1226 All edits/amendments must be made on the electronic document DICTATION DATE: 04/28/191224 GOLF COURSE STARTER: LAVON 04/28/191224 RPT#: [id number] DC DATE:04/26/19 STATUS: DIS IN [facility] [address] [place] [address] END OF REPORT
== END 2019-04-26 15:34 | disposition home health service (06) | DRG 252 ==
LOC: D.ER 02:11 → D.M2 06:06 → D.CVICU 06:06 → D.MS 04-22 18:30
PROVIDERS: Family Medicine; Family Medicine Adult Medicine; Internal Medicine Hematology & Oncology; Internal Medicine Nephrology; Internal Medicine Pulmonary Disease; Specialist; ADMIT Family Medicine; ATTEND Family Medicine
PROC: 3E03317 Introduction of Other Thrombolytic into Peripheral Vein, Percutaneous Approach (ICD-10-PCS; 2019-04-08)
PROC: 05HY33Z Insertion of Infusion Device into Upper Vein, Percutaneous Approach (ICD-10-PCS; 2019-04-08)
PROC: 0BH17EZ Insertion of Endotracheal Airway into Trachea, Via Natural or Artificial Opening (ICD-10-PCS; 2019-04-08)
PROC: 5A1955Z Respiratory Ventilation, Greater than 96 Consecutive Hours (ICD-10-PCS; 2019-04-08)
PROC: B31HZZZ Fluoroscopy of Right Upper Extremity Arteries (ICD-10-PCS; 2019-04-08)
PROC: 03C73ZZ Extirpation of Matter from Right Brachial Artery, Percutaneous Approach (ICD-10-PCS; principal; 2019-04-08 09:50)
PROC: B31HZZZ Fluoroscopy of Right Upper Extremity Arteries (ICD-10-PCS; 2019-04-09)
PROC: 0B978ZZ Drainage of Left Main Bronchus, Via Natural or Artificial Opening Endoscopic (ICD-10-PCS; 2019-04-13)
PROC: 0B938ZZ Drainage of Right Main Bronchus, Via Natural or Artificial Opening Endoscopic (ICD-10-PCS; 2019-04-13)
DX: I74.2 Embolism and thrombosis of arteries of the upper extremities (principal); J18.1 Lobar pneumonia, unspecified organism; J96.02 Acute respiratory failure with hypercapnia; J96.01 Acute respiratory failure with hypoxia; J44.0 Chronic obstructive pulmonary disease with (acute) lower respiratory infection; J44.1 Chronic obstructive pulmonary disease with (acute) exacerbation; Z68.43 Body mass index [BMI] 50.0-59.9, adult; I48.91 Unspecified atrial fibrillation; J20.9 Acute bronchitis, unspecified; E11.9 Type 2 diabetes mellitus without complications; E78.5 Hyperlipidemia, unspecified; I10 Essential (primary) hypertension; K21.9 Gastro-esophageal reflux disease without esophagitis; G47.33 Obstructive sleep apnea (adult) (pediatric); F17.200 Nicotine dependence, unspecified, uncomplicated; G25.81 Restless legs syndrome; M19.90 Unspecified osteoarthritis, unspecified site; M10.9 Gout, unspecified; E66.01 Morbid (severe) obesity due to excess calories

== ENCOUNTER → 2019-05-29 13:26 | Outpatient (CLI) | payer MEDICAID ==
[2019-04-18 16:56] VITALS: BMI 51.7
[~2019-05-29 13:26] MED LIST changes: +ADVAIR 250/501 DISK INH; +BROVANA15 MCG/2 M INH; +DALIRESP500 MCG PO; +ELIQUIS5 MG PO; +INCRUSE ELLI62.5 MCG INH; +K-DUR20 MEQ PO; +Rythmol NG; +SINGULAIR10 MG PO; +TESSALON PERLE100 MG PO
== END | disposition home or self-care (01) ==
LOC: D.RT 13:26
PROVIDERS: ATTEND Family Medicine
DX: J96.90 Respiratory failure, unspecified, unspecified whether with hypoxia or hypercapnia (principal)

== ENCOUNTER 2020-01-28 16:47 | Inpatient (IN) | payer MEDICAID ==
[~2020-01-28] VITALS: Ht 152.4 cm; Wt 141.3 kg
[2020-01-28 19:39] LABS: BASOPHILS 0.2 % (0-2); HEMATOCRIT 45.6 % (36.0-48.0); HEMOGLOBIN 12.1 g/dL (12-16); IMMATURE GRANULOCYTES 0.4 % (0-5); LYMPHOCYTES 20.7 % (15-50); MCHC 26.5 g/dL (31.0-37.0); MCV 82.8 fL (80.0-100.0); MEAN PLATELET VOLUME 8.9 fL (7.4-10.4); MONOCYTES 9.5 % (2-11); NEUTROPHILS 67.2 % (40-80); RBC 5.51 10x6/uL (4.00-5.40); WBC 12.7 10x3/uL (4.8-10.8)
[2020-01-28 19:40] LABS: PLATELET COUNT 325 10x3/uL (130-400)
[2020-01-28 19:51] LABS: CALC OSMOLALITY 276 mosm/kg (275-300); CALCIUM 8.3 mg/dL (8.5-10.1); CARBON DIOXIDE 36.3 mmol/L (21.0-32.0); CHLORIDE - SERUM 101 mmol/L (98-107); CREATININE - SERUM 0.8 mg/dL (0.6-1.3); GLUCOSE 118 mg/dL (74-106); SODIUM 139 mmol/L (136-145); UREA NITROGEN 8 mg/dL (7-18); eGFR NON AFRICAN AMERICAN 79 mL/min (90-120)
[2020-01-28 20:03] LABS: ALKALINE PHOSPHATASE 136 U/L (30-120); ALT (SGPT) 28 U/L (10-68); BILIRUBIN - TOTAL 0.47 mg/dL (0.2-1.3); PRO BNP 924 pg/mL (0-125); PROTEIN - SERUM 6.8 g/dL (6.4-8.2)
[2020-01-28 21:00] VITALS: BP 105/49
[2020-01-29 02:40] VITALS: Ht 152.4 cm; Wt 141.3 kg
[2020-01-29 04:29] VITALS: BP 102/69
[2020-01-29 05:07] LABS: BASOPHILS 0.2 % (0-2); EOSINOPHILS 2.6 % (0-7); HEMATOCRIT 47.3 % (36.0-48.0); HEMOGLOBIN 12.2 g/dL (12-16); IMMATURE GRANULOCYTES 0.7 % (0-5); LYMPHOCYTES 16.3 % (15-50); MCH 21.6 pg (26.0-34.0); MCHC 25.8 g/dL (31.0-37.0); MCV 83.9 fL (80.0-100.0); MONOCYTES 9.4 % (2-11); NEUTROPHILS 70.8 % (40-80); PLATELET COUNT 357 10x3/uL (130-400); RBC 5.64 10x6/uL (4.00-5.40); RDW 19.3 % (11.5-14.5); WBC 13.3 10x3/uL (4.8-10.8)
[2020-01-29 05:24] LABS: ANION GAP 11.4 mmol/L (8-16); BILIRUBIN - TOTAL 0.78 mg/dL (0.2-1.3); CALCIUM 8.2 mg/dL (8.5-10.1); CARBON DIOXIDE 33.2 mmol/L (21.0-32.0); POTASSIUM - SERUM 4.6 mmol/L (3.5-5.1)
[2020-01-29 05:25] LABS: INR 1.45 (0.85-1.17); PROTIME 17.5 SECONDS (11.6-15.0)
[2020-01-29 05:26] LABS: APTT 45.5 SECONDS (22.8-39.4)
[2020-01-29 09:52] VITALS: BP 96/52
[2020-01-29] MEDS ORDERED: AUGMENTIN 875-11 TAB PO (13:36)
[2020-01-29] MEDS ORDERED: HYDROCODON-ACE1 EA10 PO (13:37)
[2020-01-29] MEDS ORDERED: LASIX40 MG PO (13:38)
[2020-01-29] MEDS ORDERED: ROPINIROLE HCL1 MG PO (13:38)
[2020-01-29] MEDS ORDERED: PROTONIX40 MG PO (13:38)
[2020-01-29] MEDS ORDERED: ELIQUIS5 MG PO (13:39)
[2020-01-29] MEDS ORDERED: PROPAFENONE HC150 MG PO (13:39)
[2020-01-29] MEDS ORDERED: ZYRTEC10 MG PO (13:40)
[2020-01-29] MEDS ORDERED: COZAAR50 MG PO (13:40)
[2020-01-29] MEDS ORDERED: SINGULAIR10 MG PO (13:41)
[2020-01-29] MEDS ORDERED: PIOGLITAZONE15 MG PO (13:41)
[2020-01-29] MEDS ORDERED: PROAIR HFA8.5 G1 INH (13:42)
[2020-01-29] MEDS ORDERED: CELEXA40 MG PO (13:42)
[2020-01-29 13:46] VITALS: BP 101/53
[2020-01-29 16:35] LABS: BILIRUBIN NEGATIVE (NEGATIVE); GLUCOSE NEGATIVE (NEGATIVE); KETONE NEGATIVE (NEGATIVE); NITRITE NEGATIVE (NEGATIVE); SPECIFIC GRAVITY 1.025 (1.005-1.020); UROBILINOGEN NORMAL (NORMAL)
[2020-01-29 21:20] VITALS: BP 108/52
[2020-01-30 01:30] VITALS: BP 97/45
[2020-01-30 04:43] VITALS: BP 95/43
[2020-01-30 05:11] LABS: BASOPHILS 0.1 % (0-2); EOSINOPHILS 1.5 % (0-7); HEMATOCRIT 45.4 % (36.0-48.0); HEMOGLOBIN 11.5 g/dL (12-16); IMMATURE GRANULOCYTES 0.7 % (0-5); LYMPHOCYTES 16.4 % (15-50); MCH 21.3 pg (26.0-34.0); MCHC 25.3 g/dL (31.0-37.0); MCV 84.2 fL (80.0-100.0); MEAN PLATELET VOLUME 8.7 fL (7.4-10.4); MONOCYTES 8.4 % (2-11); NEUTROPHILS 72.9 % (40-80); PLATELET COUNT 299 10x3/uL (130-400); RBC 5.39 10x6/uL (4.00-5.40); RDW 19.3 % (11.5-14.5)
[2020-01-30 05:34] LABS: ALBUMIN 2.8 g/dL (3.4-5.0); ALKALINE PHOSPHATASE 130 U/L (30-120); ALT (SGPT) 22 U/L (10-68); BILIRUBIN - TOTAL 0.51 mg/dL (0.2-1.3); CALC OSMOLALITY 279 mosm/kg (275-300); CALCIUM 8.4 mg/dL (8.5-10.1); CARBON DIOXIDE 35.1 mmol/L (21.0-32.0); CHLORIDE - SERUM 100 mmol/L (98-107); GLUCOSE 127 mg/dL (74-106); MAGNESIUM - SERUM 2.1 mg/dL (1.8-2.4); POTASSIUM - SERUM 4.7 mmol/L (3.5-5.1); PROTEIN - SERUM 6.7 g/dL (6.4-8.2); SODIUM 139 mmol/L (136-145); UREA NITROGEN 12 mg/dL (7-18)
[2020-01-30 05:35] LABS: CREATININE - SERUM 0.7 mg/dL (0.6-1.3); eGFR NON AFRICAN AMERICAN > 90 mL/min (90-120)
[2020-01-30 10:20] VITALS: BP 116/49
[2020-01-30 14:18] VITALS: BP 100/64
[2020-01-30 16:46] VITALS: BP 105/39
[2020-01-30 20:01] VITALS: BP 105/58
[2020-01-31 04:00] VITALS: BP 125/69
[2020-01-31 05:13] LABS: BASOPHILS 0.3 % (0-2); EOSINOPHILS 2.3 % (0-7); HEMATOCRIT 41.9 % (36.0-48.0); IMMATURE GRANULOCYTES 0.3 % (0-5); MCH 21.7 pg (26.0-34.0); MCHC 26.3 g/dL (31.0-37.0); MCV 82.6 fL (80.0-100.0); MEAN PLATELET VOLUME 8.8 fL (7.4-10.4); MONOCYTES 8.8 % (2-11); NEUTROPHILS 71.3 % (40-80); PLATELET COUNT 298 10x3/uL (130-400); RBC 5.07 10x6/uL (4.00-5.40); RDW 19.2 % (11.5-14.5); WBC 11.8 10x3/uL (4.8-10.8)
[2020-01-31 05:55] LABS: ALBUMIN 2.8 g/dL (3.4-5.0); ALKALINE PHOSPHATASE 119 U/L (30-120); ALT (SGPT) 22 U/L (10-68); BILIRUBIN - TOTAL 0.59 mg/dL (0.2-1.3); CALCIUM 8.6 mg/dL (8.5-10.1); CARBON DIOXIDE 37.6 mmol/L (21.0-32.0); CHLORIDE - SERUM 100 mmol/L (98-107); CREATININE - SERUM 0.7 mg/dL (0.6-1.3); GLUCOSE 109 mg/dL (74-106); MAGNESIUM - SERUM 1.6 mg/dL (1.8-2.4); PROTEIN - SERUM 6.4 g/dL (6.4-8.2); SODIUM 139 mmol/L (136-145); eGFR NON AFRICAN AMERICAN > 90 mL/min (90-120)
[2020-01-31 06:10] LABS: CALC OSMOLALITY 277 mosm/kg (275-300); UREA NITROGEN 9 mg/dL (7-18)
[2020-01-31 06:12] LABS: POTASSIUM - SERUM 3.8 mmol/L (3.5-5.1)
[2020-01-31 10:35] VITALS: BP 116/62
[2020-01-31 13:50] VITALS: BP 115/62
[2020-01-31 20:00] VITALS: BP 97/50
[2020-02-01] VITALS: BP 105/59
[2020-02-01 04:00] VITALS: BP 100/44
[2020-02-01 06:25] LABS: BASOPHILS 0.1 % (0-2); EOSINOPHILS 0.4 % (0-7); HEMATOCRIT 42.3 % (36.0-48.0); HEMOGLOBIN 11.2 g/dL (12-16); IMMATURE GRANULOCYTES 0.4 % (0-5); LYMPHOCYTES 9.2 % (15-50); MCH 21.7 pg (26.0-34.0); MCHC 26.5 g/dL (31.0-37.0); MONOCYTES 2.5 % (2-11); NEUTROPHILS 87.4 % (40-80); PLATELET COUNT 303 10x3/uL (130-400); RBC 5.16 10x6/uL (4.00-5.40); RDW 19.5 % (11.5-14.5); WBC 13.4 10x3/uL (4.8-10.8)
[2020-02-01 06:47] LABS: ALKALINE PHOSPHATASE 121 U/L (30-120); ALT (SGPT) 22 U/L (10-68); BILIRUBIN - TOTAL 0.67 mg/dL (0.2-1.3); CALC OSMOLALITY 276 mosm/kg (275-300); CALCIUM 8.3 mg/dL (8.5-10.1); CARBON DIOXIDE 37.3 mmol/L (21.0-32.0); CHLORIDE - SERUM 98 mmol/L (98-107); CREATININE - SERUM 0.7 mg/dL (0.6-1.3); GLUCOSE 152 mg/dL (74-106); MAGNESIUM - SERUM 1.7 mg/dL (1.8-2.4); PHOSPHOROUS 3.6 mg/dL (2.5-4.9); POTASSIUM - SERUM 4.2 mmol/L (3.5-5.1); PROTEIN - SERUM 6.3 g/dL (6.4-8.2); SODIUM 138 mmol/L (136-145); UREA NITROGEN 7 mg/dL (7-18); eGFR NON AFRICAN AMERICAN > 90 mL/min (90-120)
[2020-02-01 08:00] VITALS: BP 108/43
[2020-02-01 14:03] VITALS: BP 114/41
--- NOTE | 2020-02-01 16:57 | MORECARE ---
CASE MANAGEMENT DISCHARGE SUMMARY PATIENT: DERIC CARBALLO UNIT: [id number] ADM DATE: 01/28/20 AGE: 54 : 63 SEX: F ROOM/BED: D.2107 AUTHOR: LUDWIG KILLIAN PHYSICIAN: REFERRING PHYSICIAN: DENISSE BETANCOURT DO DATE OF SERVICE: 02/01/20 Discharge Plan Patient Name: DERIC CARBALLO Facility: [facility]:[place] : 1965 Planned Disposition: Anticipated Discharge Date: 02/02/20 Discharge Date: Expected LOS: 5 Initial Reviewer: [email or web address] Initial Review Date: 02/01/2020 Generated: 02/01/20 5:57 pm Comments DCP- Discharge Planning Updated by [email or web address]: Elsy Monge on 02/01/20 3:[address] Patient Name: DERIC CARBALLO Admission Status: Elective Accout number: [id number] Admission Date: 01-28-2020 : 1965 Admission Diagnosis:ACUTE AND CHRONIC RESPIRATORY FAILURE WITH HYPOXIA Attending: DENISSE BETANCOURT Current LOS: 4 Anticipated DC Date: 02-02-2020 Planned Disposition: Primary Insurance: MEDICAID [place] Discharge Planning Comments: CM met with patient to discuss discharge planning/needs. She states her CPAP is broken. States she does have a nebulizer from [facility]. I have gotten approval from [facility] for Trilogy. I have ordered room air ABG's to see if she qualifies for home oxygen. Sly with [facility] is faxing me the DWO for Dr. Capps to sign. No other needs identified. Power System Dispatcher: Elsy Monge DCP- Discharge Planning Updated by [email or web address]: Susan Zaldivar on 01/31/20 5:[address] Call back from patient's daughter with DME: [facility]. CM will order Bi-PAP or Triolgy tomorrow. DCP- Discharge Planning Updated by [email or web address]: Susan Zaldivar on 01/31/20 4:[address] CM received order for BIPAP OR TRILOGY for home use. PCP: Dr. Betancourt. Pharmacy: [facility]. DME: Home O2, Nebulizer. Medicaid will require prior-authorization. Emergency contact: Starla Carballo #[phone]. Patient lives alone in her home. Patient gives her permission to speak with her daughter. Patient cannot remember the name of her DME provider. CM left a message with daughter, Starla and provided my contact information. Await CB for assistance. CM will continue to attempt contact and search DME's to locate her provider. DCPIA - Discharge Planning Initial Assessment Updated by [email or web address]: Elsy Monge on 02/01/20 4:55 pm * Is the patient Alert and Oriented? Yes * How many steps to enter\exit or inside your home? 0/0 * PCP Dr. Betancourt * Pharmacy [facility] * Preadmission Environment Home Alone * ADLs Independent * Equipment CPAP Nebulizer * List name and contact numbers for known caregivers / representatives who currently or will assist patient after discharge: Starla Carballo - DTR - [phone] * Verbal permission to speak to the caregivers and representatives has been obtained from the patient. Yes * Community resources currently utilized None * Please name any agencies selected above. [facility] [place] [facility] * Additional services required to return to the preadmission environment? Yes * Can the patient safely return to the preadmission environment? Yes * Has this patient been hospitalized within the prior 30 days at any hospital? No External Providers External Provider: [facility] Contact Date: Service Request Date: Service Type: Resolution: Reviewer: Comments: Patient Name: DERIC CARBALLO Page 32940 at 1657 All edits/amendments must be made on the electronic document DICTATION DATE: 02/01/201656 ENGAGEMENT MANAGER: LAVON 02/01/201656 RPT#: [id number] DC DATE: STATUS: ADM IN [facility] [address] [facility] [place] [address] END OF REPORT
[2020-02-01 18:27] VITALS: BP 128/73
[2020-02-01 22:09] VITALS: BP 115/60
[2020-02-02 00:54] VITALS: BP 120/69
[2020-02-02 05:05] VITALS: BP 139/83
[2020-02-02 05:36] LABS: BASOPHILS 0.1 % (0-2); EOSINOPHILS 0.7 % (0-7); HEMOGLOBIN 11.2 g/dL (12-16); IMMATURE GRANULOCYTES 0.4 % (0-5); LYMPHOCYTES 7.8 % (15-50); MCH 21.6 pg (26.0-34.0); MCHC 26.7 g/dL (31.0-37.0); MCV 80.9 fL (80.0-100.0); MEAN PLATELET VOLUME 8.9 fL (7.4-10.4); MONOCYTES 6.3 % (2-11); NEUTROPHILS 84.7 % (40-80); PLATELET COUNT 300 10x3/uL (130-400); RBC 5.19 10x6/uL (4.00-5.40); RDW 19.7 % (11.5-14.5); WBC 13.8 10x3/uL (4.8-10.8)
[2020-02-02 05:47] LABS: ALBUMIN 3.1 g/dL (3.4-5.0); ALKALINE PHOSPHATASE 112 U/L (30-120); ALT (SGPT) 24 U/L (10-68); BILIRUBIN - TOTAL 0.59 mg/dL (0.2-1.3); CALC OSMOLALITY 276 mosm/kg (275-300); CALCIUM 8.3 mg/dL (8.5-10.1); CARBON DIOXIDE 35.6 mmol/L (21.0-32.0); CHLORIDE - SERUM 97 mmol/L (98-107); CREATININE - SERUM 0.6 mg/dL (0.6-1.3); GLUCOSE 163 mg/dL (74-106); MAGNESIUM - SERUM 2.1 mg/dL (1.8-2.4); PHOSPHOROUS 3.8 mg/dL (2.5-4.9); POTASSIUM - SERUM 4.2 mmol/L (3.5-5.1); PROTEIN - SERUM 6.4 g/dL (6.4-8.2); SODIUM 137 mmol/L (136-145); eGFR NON AFRICAN AMERICAN > 90 mL/min (90-120)
[2020-02-02 06:12] LABS: UREA NITROGEN 9 mg/dL (7-18)
[2020-02-02 09:31] VITALS: BP 123/55
--- NOTE | 2020-02-02 09:56 | MORECARE ---
CASE MANAGEMENT DISCHARGE SUMMARY PATIENT: DERIC CARBALLO UNIT: [id number] ADM DATE: 01/28/20 AGE: 54 : 63 SEX: F ROOM/BED: D.7019 AUTHOR: CONSTANTINDOC PHYSICIAN: REFERRING PHYSICIAN: DENISSE BETANCOURT DO DATE OF SERVICE: 02/02/20 Discharge Plan Patient Name: DERIC CARBALLO Facility: [facility]:[place] : 1965 Planned Disposition: Anticipated Discharge Date: 02/02/20 Discharge Date: Expected LOS: 5 Initial Reviewer: [email or web address] Initial Review Date: 02/01/2020 Generated: 02/02/20 10:56 am Comments DCP- Discharge Planning Updated by [email or web address]: Elsy Monge on 02/02/20 8:[address] Patient does not qualify for portable oxygen per Medicaid guidelines. She does qualify for trilogy and stationary oxygen. I faxed the signed Rx to [facility]. Sly with [facility] states they will meet patient at her house today and bring the Trilogy, stationary oxygen and nebulizer supplies to her. Home today. DCP- Discharge Planning Updated by [email or web address]: Elsy Monge on 02/01/20 3:[address] Patient Name: DERIC CARBALLO Admission Status: Elective Accout number: [id number] Admission Date: 01-28-2020 : 1965 Admission Diagnosis:ACUTE AND CHRONIC RESPIRATORY FAILURE WITH HYPOXIA Attending: DENISSE BETANCOURT Current LOS: 4 Anticipated DC Date: 02-02-2020 Planned Disposition: Primary Insurance: MEDICAID [place] Discharge Planning Comments: CM met with patient to discuss discharge planning/needs. She states her CPAP is broken. States she does have a nebulizer from [facility]. I have gotten approval from [facility] for Trilogy. I have ordered room air ABG's to see if she qualifies for home oxygen. Sly with [facility] is faxing me the DWO for Dr. Capps to sign. No other needs identified. Steward/Stewardess: Elsy Monge DCP- Discharge Planning Updated by [email or web address]: Susan Zaldivar on 01/31/20 5:[address] Call back from patient's daughter with DME: [facility]. CM will order Bi-PAP or Triolgy tomorrow. DCP- Discharge Planning Updated by [email or web address]: Susan Castañedalroy on 01/31/20 4:[address] CM received order for BIPAP OR TRILOGY for home use. PCP: Dr. Betancourt. Pharmacy: [facility]. DME: Home O2, Nebulizer. Medicaid will require prior-authorization. Emergency contact: Starla Carballo #[phone]. Patient lives alone in her home. Patient gives her permission to speak with her daughter. Patient cannot remember the name of her DME provider. CM left a message with daughter, Starla and provided my contact information. Await CB for assistance. CM will continue to attempt contact and search DME's to locate her provider. DCPIA - Discharge Planning Initial Assessment Updated by [email or web address]: Elsy Monge on 02/01/20 4:55 pm * Is the patient Alert and Oriented? Yes * How many steps to enter\exit or inside your home? 0/0 * PCP Dr. Betancourt * Pharmacy [facility] * Preadmission Environment Home Alone * ADLs Independent * Equipment CPAP Nebulizer * List name and contact numbers for known caregivers / representatives who currently or will assist patient after discharge: Starla Carballo - DTR - [phone] * Verbal permission to speak to the caregivers and representatives has been obtained from the patient. Yes * Community resources currently utilized None * Please name any agencies selected above. DME - [facility] * Additional services required to return to the preadmission environment? Yes * Can the patient safely return to the preadmission environment? Yes * Has this patient been hospitalized within the prior 30 days at any hospital? No Last DP export: 02/01/20 3:57 p Patient Name: DERCI CARBALLO Page [id number] at 0956 All edits/amendments must be made on the electronic document DICTATION DATE: 02/02/20955 MENHADEN FISHING CREW MEMBER: LAVON 02/02/20955 RPT#: [id number] DC DATE: STATUS: ADM IN [facility] [address] [place] [address] END OF REPORT
[2020-02-02] MEDS ORDERED: OMNICEF300 MG PO (10:48)
[2020-02-02] MEDS ORDERED: VIBRAMYCIN 100100 MG PO (10:49)
[2020-02-02] MEDS ORDERED: PROTONIX40 MG PO (10:49)
[2020-02-02] MEDS ORDERED: PREDNISONE20 MG PO (10:53)
--- NOTE | 2020-02-03 16:43 | MORECARE ---
CASE MANAGEMENT DISCHARGE SUMMARY PATIENT: DERIC CARBALLO UNIT: [id number] ADM DATE: 01/28/20 AGE: 54 : 63 SEX: F ROOM/BED: D.0483 AUTHOR: LUDWIG KILLIAN PHYSICIAN: REFERRING PHYSICIAN: DENISSE BETANCOURT DO DATE OF SERVICE: 02/03/20 Discharge Plan Patient Name: DERIC CARBALLO Facility: [facility]:[place] : 1965 Planned Disposition: Home Anticipated Discharge Date: 02/02/20 Discharge Date: 02/02/2020 Expected LOS: 5 Initial Reviewer: [email or web address] Initial Review Date: 02/01/2020 Generated: 02/03/20 5:42 pm Comments DCP- Discharge Planning Updated by [email or web address]: Elsy Monge on 02/02/20 8:[address] Patient does not qualify for portable oxygen per Medicaid guidelines. She does qualify for trilogy and stationary oxygen. I faxed the signed Rx to [facility]. Sly with [facility] states they will meet patient at her house today and bring the Trilogy, stationary oxygen and nebulizer supplies to her. Home today. DCP- Discharge Planning Updated by [email or web address]: Elsy Monge on 02/01/20 3:[address] Patient Name: DERIC CARBALLO Admission Status: Elective Accout number: [id number] Admission Date: 01-28-2020 : 1965 Admission Diagnosis:ACUTE AND CHRONIC RESPIRATORY FAILURE WITH HYPOXIA Attending: DENISSE BETANCOURT Current LOS: 4 Anticipated DC Date: 02-02-2020 Planned Disposition: Primary Insurance: MEDICAID [place] Discharge Planning Comments: CM met with patient to discuss discharge planning/needs. She states her CPAP is broken. States she does have a nebulizer from [facility]. I have gotten approval from [facility] for Trilogy. I have ordered room air ABG's to see if she qualifies for home oxygen. Sly with [facility] is faxing me the DWO for Dr. Capps to sign. No other needs identified. Can Handler: Elsy Monge DCP- Discharge Planning Updated by [email or web address]: Susan Zaldivar on 01/31/20 5:[address] Call back from patient's daughter with DME: [facility]. CM will order Bi-PAP or Triolgy tomorrow. DCP- Discharge Planning Updated by [email or web address]: Susan Zaldivar on 01/31/20 4:[address] CM received order for BIPAP OR TRILOGY for home use. PCP: Dr. Betancourt. Pharmacy: [facility]. DME: Home O2, Nebulizer. Medicaid will require prior-authorization. Emergency contact: Starla Carballo #[phone]. Patient lives alone in her home. Patient gives her permission to speak with her daughter. Patient cannot remember the name of her DME provider. CM left a message with daughter, Starla and provided my contact information. Await CB for assistance. CM will continue to attempt contact and search DME's to locate her provider. DCPIA - Discharge Planning Initial Assessment Updated by [email or web address]: Elsykori Monge on 02/01/20 4:55 pm * Is the patient Alert and Oriented? Yes * How many steps to enter\exit or inside your home? 0/0 * PCP Dr. Betancourt * Pharmacy [facility] * Preadmission Environment Home Alone * ADLs Independent * Equipment CPAP Nebulizer * List name and contact numbers for known caregivers / representatives who currently or will assist patient after discharge: Starla Carballo - DTR - [phone] * Verbal permission to speak to the caregivers and representatives has been obtained from the patient. Yes * Community resources currently utilized None * Please name any agencies selected above. DME - [facility] * Additional services required to return to the preadmission environment? Yes * Can the patient safely return to the preadmission environment? Yes * Has this patient been hospitalized within the prior 30 days at any hospital? No Last DP export: 02/02/20 8:56 a Patient Name: DERIC CARBALLO Page 33662 at 1643 All edits/amendments must be made on the electronic document DICTATION DATE: 02/03/201641 ASSOCIATE PROFESSOR COMPUTER SCIENCE: LAVON 02/03/201641 RPT#: [id number] DC DATE:02/02/20 STATUS: DIS IN [facility] [address] [place] [address] END OF REPORT
== END 2020-02-02 13:02 | disposition home or self-care (01) | DRG 193 ==
LOC: D.M2 16:47
PROVIDERS: ADMIT Family Medicine; ATTEND Family Medicine
DX: J18.9 Pneumonia, unspecified organism (principal); J96.21 Acute and chronic respiratory failure with hypoxia; J96.02 Acute respiratory failure with hypercapnia; J44.0 Chronic obstructive pulmonary disease with (acute) lower respiratory infection; F17.203 Nicotine dependence unspecified, with withdrawal; Z68.43 Body mass index [BMI] 50.0-59.9, adult; J44.1 Chronic obstructive pulmonary disease with (acute) exacerbation; J98.11 Atelectasis; E83.42 Hypomagnesemia; H66.90 Otitis media, unspecified, unspecified ear; I10 Essential (primary) hypertension; E78.5 Hyperlipidemia, unspecified; E11.9 Type 2 diabetes mellitus without complications; I48.91 Unspecified atrial fibrillation; Z79.01 Long term (current) use of anticoagulants; K21.9 Gastro-esophageal reflux disease without esophagitis; F41.8 Other specified anxiety disorders; E66.01 Morbid (severe) obesity due to excess calories; J30.9 Allergic rhinitis, unspecified; G25.81 Restless legs syndrome

== ENCOUNTER 2020-03-06 13:49 | Emergency (ER) | payer MEDICAID ==
[~2020-03-06] VITALS: Ht 160 cm; Wt 136.4 kg
[~2020-03-06 13:49] MED LIST changes: +AUGMENTIN 875-11 TAB PO; +CELEXA40 MG PO; +COZAAR50 MG PO; +HYDROCODON-ACE1 EA10 PO; +LASIX40 MG PO; +OMNICEF300 MG PO; +PIOGLITAZONE15 MG PO; +PREDNISONE20 MG PO; +PROAIR HFA8.5 G1 INH; +PROPAFENONE HC150 MG PO; +PROTONIX40 MG PO; +ROPINIROLE HCL1 MG PO; +VIBRAMYCIN 100100 MG PO; +ZYRTEC10 MG PO
[2020-03-06 13:58] VITALS: Ht 160 cm; Wt 136.4 kg
[2020-03-06 17:09] VITALS: BP 146/82
== END 2020-03-06 17:09 | disposition home or self-care (01) ==
LOC: D.ER 13:49
DX: R22.42 Localized swelling, mass and lump, left lower limb (principal); E11.9 Type 2 diabetes mellitus without complications; I10 Essential (primary) hypertension; J44.9 Chronic obstructive pulmonary disease, unspecified; Z99.81 Dependence on supplemental oxygen; K21.9 Gastro-esophageal reflux disease without esophagitis

== ENCOUNTER 2020-03-19 16:25 | Inpatient (IN) | payer MEDICAID ==
[~2020-03-19] VITALS: Ht 160 cm; Wt 146.6 kg
--- NOTE | ~2020-03-19 | HEMODYNAMI ---
PATIENT:DERIC CARBALLO MEDICAL RECORD: [id number] : [birth year] [facility] ADMISSION DATE: 03/19/20 Generatedon:03/22/202015:03 Patient name: DERIC CARBALLO Patient #: [id number] SSN: D OB: 1965 Date of study: 03/22/2020 Page: Of Hemodynamic Procedure Report Patient Data Patient Demographics Procedure consent was obtained First Name: DERIC Gender: Female Last Name: HARIS : 1965 [facility] Initial: GALLO Age: 54 year(s) Patient #: [id number] Race: Unknown Additional ID: [id number] Contact details Address: [address] [place] [address] State: [place] City: [place] Zip code: [address] Past Medical History Allergies Allergen Reaction Date Comments Reported Codeine 04/08/2019 Other allergy 04/08/2019 gabapentin, blue dye Codeine 04/09/2019 Other allergy 04/09/2019 blue dye, gabapentin Other allergy 03/22/2020 CODEINE, GABAPENTIN, BLUE DYE Admission Admission Data Admission Date: 03/19/2020 Admission Time: 19:46 Room #: D.2109 Procedure Procedure Types Cath Procedure Diagnostic Procedure Cardioversion External Procedure Description Procedure Date Procedure Date: 03/22/2020 Procedure Start Time: 14:52 Procedure End Time: 14:59 Procedure Staff Name Function Teddy Loyola MD Performing Physician Mari Roman RT Monitor Loreta Avilez RN Nurse Vasile Valverde Jr AIR QUALITY MANAGER Additional personnel Procedure Data Cath Procedure Fluoroscopy Diagnostic fluoroscopy Total fluoroscopy Time: 0 time: 0 min min Diagnostic fluoroscopy Total fluoroscopy dose: 0 dose: 0 mGy mGy Estimated blood loss: 0 ml Procedure Complications No complications Procedure Medications Medication Administration Route Dosage Oxygen NC 5 l/min Refer to Anesthesia Notes for Sedation Medications Hemodynamics Rest Heart Rate: 81 (bpm) Snapshots Pre Cath Intra NCS Post Cath Vital Signs Time Heart Resp SPO2 etCO2 NIBP (mmHg) Rhythm Pain Sedation Rate (ipm) (%) (mmHg) Status Level (bpm) 14:51:19 74 17 95 0 129/99(110) A-Flutter 0 (11) 10(A) , No pain 14:55:22 74 19 91 0 122/84(98) NSR 0 (11) 9(A) , No pain 14:58:17 70 16 94 0 127/82(93) NSR 0 (11) 10(A) , No pain Medications Time Medication Route Dose Verified Delivered Reason Notes Effectiven ess by by 14:50:33 Oxygen NC 5 Teddy Kan Per l/min St Vance Avilez RN physician 14:50:37 Refer to Teddy Kan Anesthesia St Vance Avilez RN Notes for MD Sedation Medications Procedure Log Time Note 14::34 Informed consent obtained and on chart 14:11:00 Procedure Status Cardioversion. 14:11:01 Time tracking: Regular hours (M-F 7:00 - 5:00) 14:11:06 Plan of Care:Hemodynamics will remain stable., Cardiac rhythm will remain stable., Comfort level will be maintained., Respiratory function will remain adequate., Patient/ family verbilizes understanding of procedure., Procedure tolerated without complication., Recovers from procedure without complications.. 14:30:41 Loreta Avilez RN sent for patient. Start room use. 14:35:20 Vasile Valverde Jr AIR QUALITY MANAGER present and monitoring patient for TIVA. 14:43:16 Patient arrived from Med II to CCL 2. Patient remains on bed/stretcher for procedure. 14:43:17 Warm blankets applied, and afshin hugger turned on for patient comfort. 14:43:18 Correct patient and procedure confirmed by team. 14:43:23 H&P Date Dictated: 03/22/2020 ER History on chart.. 14:43:27 Full Disclosure recording started 14:43:28 ECG and BP/O2 sat monitors applied to patient. 14:43:30 Pre-procedure instructions explained to patient. 14:43:30 Pre-op teaching completed and patient verbalized understanding. 14:47:01 Family unavailable. 14:47:03 Patient NPO since Midnight. 14:49:17 Rhythm: atrial flutter 14:50:01 Patient allergic to Other allergyCODEINE, GABAPENTIN, BLUE DYE 14:50:02 Is patient on blood thinner?Yes 14:50:11 ACC The patient was administered the following blood thiners within the last 24 hours: Eliquis 14:50:14 Patient diabetic? No. 14:50:16 Vital chart was started 14:50:18 Patient not . Patient is over age 55. 14:50:21 Previous problem with sedation/anesthesia? No ? 14:50:21 Snore? Yes 14:50:23 Sleep apnea? Yes 14:50:24 Deviated septum? No 14:50:25 Opens mouth fully? Yes 14:50:25 Sticks out tongue? Yes 14:50:28 Airway obstruction? Yes COPD 14:50:31 Dentures? No OUT 14:50:33 Oxygen 5 l/min NC was administered by Loreta Avilez RN; Per physician; Verbal order read back and verified. 14:50:36 Patient pain scale 0/10 SHORT OF BREATH. 14:50:37 Refer to Anesthesia Notes for Sedation Medications was administered by Loreta Avilez RN; ; Verbal order read back and verified. 14:50:42 Lab results completed and on chart. 14:50:56 IV patent on arrival in right hand with 0.9% NaCl at [facility]. 14:51:00 Alarms reviewed by Betty Martin 14:51:10 --------ALL STOP TIME OUT------ 14:51:10 Final Timeout: patient, procedure, and site verified with staff and physician. All members of the team are in agreement. 14:51:14 Fire Safety Assessment: C--Open oxygen or nitrous oxide is being used. 14:51:20 Physical assessment completed. ASA score P 3 - A patient with severe systemic disease as per Teddy Loyola MD. 14:51:24 Sedation plan: TIVA Medication:Propofol 14:51:38 Quick Combo opened to sterile field. 14:52:42 Procedure started. 14:53:20 Baseline sample Acquired. 14:53:23 ------Cardioversion------ 14:53:27 Quick combo pads placed on patients chest and back. 14:53:29 Defibrillator synced and charged to 200 Joules. 14:53:31 Shock delivered. 14:53:44 Patient cardioverted to sinus rhythm . 14:54:21 Procedure ended.(Physican Out) 14:54:52 Fluoroscopy time 00.00 minutes. 14:54:53 Fluoroscopy dose: 0 mGy 14:54:53 Flurop Dose total: 0 14:57:05 Post-procedure physical assessment completed. ASA score P 3 - A patient with severe systemic disease as per Teddy Loyola MD. 14:57:07 Post procedure rhythm: sinus rhythm 14:57:10 Estimated blood loss: 0 ml 14:57:11 Post procedure instruction explained to patient.Patient verbalizes understanding. 14:57:11 Patient needs reinforcement of post procedure teaching. 14:57:26 Procedure and supply charges have been captured, reviewed, submitted and are correct. 14:57:28 Procedure Complication : No complications 14:58:46 Operative report dictated upon procedure completion. 14:58:46 See physician's report for complete and final results. 14:58:50 Report given to [facility]. 14:58:53 Patient transfered to [facility] II with Bed. 14:59:36 Vital chart was stopped 14:59:38 Procedure ended. 14:59:38 Full Disclosure recording stopped 14:59:43 End room use (Document Last) 15:02:46 End room use (Document Last) 15:03:11 End room use (Document Last) Device Usage Item Manufacture Quantity Catalog Hospital Part Current Minimal Lot# / Name Number Charge Number Stock Stock Seri al# Code [employer] 1 [id number] Combo Signature Audit Center Point Stage Time Signature Unsigned Intra-Procedure 03/22/2020 Mari Roman 3:02:46 PM RT(R) Intra-Procedure 03/22/2020 Loreta Avilez RN 3:03:11 PM Intra-Procedure 03/22/2020 Teddy Mojica 3:03:24 PM Vance VILLARREAL Signatures Performing Physician : Signature : Teddy Loyola MD Date : Time : Monitor : Mari Roman Signature : RT Date : Time : Nurse : Buffie Avilez RN Signature : Date : Time : [place] [address] [place] [address]
[2020-03-19 16:51] LABS: BASOPHILS 0.3 % (0-2); EOSINOPHILS 2.1 % (0-7); HEMATOCRIT 42.4 % (36.0-48.0); HEMOGLOBIN 11.9 g/dL (12-16); IMMATURE GRANULOCYTES 0.4 % (0-5); LYMPHOCYTES 20.7 % (15-50); MCH 23.8 pg (26.0-34.0); MCHC 28.1 g/dL (31.0-37.0); MEAN PLATELET VOLUME 8.8 fL (7.4-10.4); MONOCYTES 7.8 % (2-11); NEUTROPHILS 68.7 % (40-80); PLATELET COUNT 295 10x3/uL (130-400); RBC 4.99 10x6/uL (4.00-5.40); RDW 24.1 % (11.5-14.5); WBC 11.7 10x3/uL (4.8-10.8)
[2020-03-19 17:13] LABS: ANION GAP 6.8 mmol/L (8-16); CALCIUM 8.3 mg/dL (8.5-10.1); POTASSIUM - SERUM 3.8 mmol/L (3.5-5.1)
[2020-03-19 17:27] LABS: BILIRUBIN - TOTAL 0.43 mg/dL (0.2-1.3); PROTEIN - SERUM 6.7 g/dL (6.4-8.2)
[2020-03-19 17:38] LABS: APTT 35.8 SECONDS (22.8-39.4); INR 1.31 (0.85-1.17); PROTIME 16.2 SECONDS (11.6-15.0)
--- NOTE | 2020-03-19 17:44 | NUR ---
PATIENT ON THE PHONE, NOT ABLE TO START THE IV AND GIVE MEDS , SHE HAS TO FINISH HER CALL
[2020-03-19 17:53] LABS: CKMB 0.3 U/L (0.0-3.6); CREATINE KINASE 25 UL (21-215); TROPONIN-I < 0.017 ng/mL (0.000-0.060)
--- NOTE | 2020-03-19 18:27 | NUR ---
TO CT VIA W/C PER TECH. IV ESTABLISHED
[2020-03-19 19:00] VITALS: BP 101/60
--- NOTE | 2020-03-19 19:57 | NUR ---
PATIENT IN WITH C/O SOB, ABD SWELLING, STATES THIS STARTED ABOUT 5 DAYS AGO WORSE TODAY.
--- NOTE | 2020-03-19 20:14 | NUR ---
PT TO ROOM 2109 VIA STRETCHER ACCOMPANIED BY HOSPITAL STAFF.
--- NOTE | 2020-03-19 21:17 | NUR ---
ORDER FOR UA PLACED. LAB HAS SPECIMEN AVAILABLE.
[2020-03-19 21:30] LABS: BILIRUBIN NEGATIVE (NEGATIVE); GLUCOSE NEGATIVE (NEGATIVE); KETONE NEGATIVE (NEGATIVE); NITRITE NEGATIVE (NEGATIVE); UROBILINOGEN NORMAL (NORMAL)
[2020-03-20] VITALS (7 sets, daily range): BP systolic 92–112; BP diastolic 43–67; BMI 56.5
[2020-03-20 01:06] LABS: CKMB 0.3 U/L (0.0-3.6); CREATINE KINASE 24 UL (21-215); TROPONIN-I < 0.017 ng/mL (0.000-0.060)
[2020-03-20 05:10] LABS: CKMB 0.3 U/L (0.0-3.6); CREATINE KINASE 31 UL (21-215); TROPONIN-I < 0.017 ng/mL (0.000-0.060)
--- NOTE | 2020-03-20 07:20 | NUR ---
RECIEVE REPORT. ALERT AND ORIENTED X4. SITTING UP ON SIDE OF BED. O2 AT 3L NC. CONTROLLED AFIB ON TELEMETRY. DENIES ANY NEEDS AT THIS TIME. CONTINUE PLAN OF CARE AND SAFETY PRECAUTIONS.
--- NOTE | 2020-03-20 08:43 | NUR ---
ALERT AND ORIENTED X4. SITTING UP ON SIDE OF BED. INITIATE CARDIZEM INFUSION @ 5ml/HR ORDERED. CURRENTLY 103 UNCONTROLLED AFIB. BP-100/55. DENIES ANY NEEDS AT THIS TIME. CONTINUE PLAN OF CARE AND SAFETY PRECAUTIONS.
[2020-03-20] MEDS ORDERED: TRILOGY (17:20)
--- NOTE | 2020-03-20 18:25 | NUR ---
ALERT AND ORIENTED X4. SITTING UP IN BED. D.DIMER SLIGHTLY ELEVATED. CTA ORDERED PER PE PROTOCOL. CTA RESULTS NEGATIVE. CARDIZEM CONTINUES INFUSING ORDERED. CONTROLLED AFIB 98 ON TELEMETRY. VITALS STABLE. DENIES ANY NEEDS. CONTINUE PLAN OF CARE AND SAFETY PRECAUTIONS.
--- NOTE | 2020-03-20 19:05 | NUR ---
BEDSIDE REPORT RECEIVED, PT CARE ASSUMED. WROTE NAME ON BOARD. PT SITTING UP ON SIDE OF BED, AAOX4. REQUESTING ASSISTANCE WITH PLUGGING IN HER CELLPHONE SMT MACHINE OPERATOR, PROVIDED. DENIES ANY OTHER NEEDS AT THIS TIME. BED IN LOWEST, SR X1, CALL LIGHT WITHIN REACH. WILL CTM.
[2020-03-21 04:30] VITALS: BP 109/55
--- NOTE | 2020-03-21 07:20 | NUR ---
RECIEVE REPORT. RESTING IN BED WITH EYES CLOSED. NO SIGNS OF DISTRESS. CONTINUE PLAN OF CARE AND SAFETY PRECAUTIONS.
[2020-03-21 07:51] VITALS: BP 104/40
[2020-03-21 08:01] LABS: BASOPHILS 0 % (0-2); EOSINOPHILS 0 % (0-7); HEMATOCRIT 42.1 % (36.0-48.0); HEMOGLOBIN 11.5 g/dL (12-16); IMMATURE GRANULOCYTES 0.3 % (0-5); LYMPHOCYTES 6.5 % (15-50); MCH 23.5 pg (26.0-34.0); MCHC 27.3 g/dL (31.0-37.0); MCV 85.9 fL (80.0-100.0); MEAN PLATELET VOLUME 8.9 fL (7.4-10.4); MONOCYTES 4.9 % (2-11); NEUTROPHILS 88.3 % (40-80); PLATELET COUNT 344 10x3/uL (130-400); RDW 23.9 % (11.5-14.5)
[2020-03-21 08:07] LABS: WBC 18.9 10x3/uL (4.8-10.8)
[2020-03-21 08:21] LABS: ALBUMIN 3.2 g/dL (3.4-5.0); ANION GAP 7.1 mmol/L (8-16); BILIRUBIN - TOTAL 0.37 mg/dL (0.2-1.3); CALCIUM 8.9 mg/dL (8.5-10.1); CARBON DIOXIDE 35.5 mmol/L (21.0-32.0); MAGNESIUM - SERUM 2.3 mg/dL (1.8-2.4); POTASSIUM - SERUM 4.6 mmol/L (3.5-5.1); PROTEIN - SERUM 6.9 g/dL (6.4-8.2)
[2020-03-21 11:48] VITALS: BP 117/61
[2020-03-21 13:11] VITALS: Ht 160 cm; Wt 146.6 kg
[2020-03-21 15:09] VITALS: BP 114/68
--- NOTE | 2020-03-21 19:47 | NUR ---
REPORT RECEIVED, WILL CONTINUE POC. PATIENT IS AAOX4, SITTING UP ON SIDE OF BED, BREATHING TX IN HAND. NO S/S OF DISTRESS OBSERVED, RR EVEN AND UNLABORED ON 6L HFNC. CUP OF ICE GIVEN REQUESTED. PATIENT DENIES FURTHER NEEDS AT THIS TIME. CL IN REACH, BED LOCKED AND LOWERED. WILL CTM.
[2020-03-21 20:00] VITALS: BP 119/63
[2020-03-22] VITALS: BP 122/57
--- NOTE | 2020-03-22 02:29 | NUR ---
I have reviewed this patient and I concur with the Shift Assessment completed by the Licensed Practical Nurse today this shift.
[2020-03-22 04:00] VITALS: BP 105/69
[2020-03-22 05:46] LABS: BASOPHILS 0 % (0-2); EOSINOPHILS 0 % (0-7); HEMATOCRIT 42.9 % (36.0-48.0); HEMOGLOBIN 11.6 g/dL (12-16); IMMATURE GRANULOCYTES 0.4 % (0-5); MCH 23.2 pg (26.0-34.0); MEAN PLATELET VOLUME 8.9 fL (7.4-10.4); MONOCYTES 5.4 % (2-11); NEUTROPHILS 89.2 % (40-80); PLATELET COUNT 373 10x3/uL (130-400); RBC 4.99 10x6/uL (4.00-5.40); RDW 23.6 % (11.5-14.5); WBC 19.1 10x3/uL (4.8-10.8)
[2020-03-22 06:02] LABS: ALBUMIN 3.3 g/dL (3.4-5.0); ANION GAP 6.7 mmol/L (8-16); BILIRUBIN - TOTAL 0.44 mg/dL (0.2-1.3); CALCIUM 8.6 mg/dL (8.5-10.1); CARBON DIOXIDE 37.4 mmol/L (21.0-32.0); MAGNESIUM - SERUM 2.2 mg/dL (1.8-2.4); POTASSIUM - SERUM 5.1 mmol/L (3.5-5.1); PROTEIN - SERUM 6.7 g/dL (6.4-8.2)
--- NOTE | 2020-03-22 07:20 | NUR ---
RECIEVE REPORT. ALERT AND ORIENTED X4. UP TO RESTROOM. CONTROLLED AFIB 88 ON TELEMETRY. DENIES ANY NEEDS CONTINUE PLAN OF CARE AND SAFETY PRECAUTIONS.
[2020-03-22 10:03] VITALS: BP 120/59
[2020-03-22 13:33] VITALS: BP 135/89
--- NOTE | 2020-03-22 16:35 | NUR ---
RETURN TO ROOM VIA BED FROM ASSISTANT HEAD CASHIER CARDIOVERSION. ALERT AND ORIENTED X4. SINUS RYTHM 84 ON TELEMETRY. BP-137/70.NO SIGNS OF DISTRESS. CONTINUE PLAN OF CARE AND SAFETY PRECAUTIONS.
[2020-03-22 18:29] VITALS: BP 137/70
--- NOTE | 2020-03-22 19:00 | NUR ---
REPORT RECEIVED, WILL CONTINUE POC. PATIENT IS AAOX4, SITTING UP ON SIDE OF BED. NO S/S OF DISTRESS OBSERVED, RR EVEN AND UNLABORED ON 6L O2 VIA NC. PATIENT DENIES NEEDS AT THIS TIME. CL IN REACH, BED LOCKED AND LOWERED. WILL CTM
[2020-03-22 20:00] VITALS: BP 99/50
[2020-03-23] VITALS: BP 105/56
--- NOTE | 2020-03-23 03:35 | NUR ---
I have reviewed this patient and I concur with the Shift Assessment completed by the Licensed Practical Nurse today this shift.
[2020-03-23 04:00] VITALS: BP 106/66
[2020-03-23 05:12] LABS: BASOPHILS 0 % (0-2); EOSINOPHILS 0 % (0-7); HEMATOCRIT 41.6 % (36.0-48.0); HEMOGLOBIN 11.1 g/dL (12-16); IMMATURE GRANULOCYTES 0.5 % (0-5); LYMPHOCYTES 6.3 % (15-50); MCHC 26.7 g/dL (31.0-37.0); MCV 86.3 fL (80.0-100.0); MEAN PLATELET VOLUME 8.7 fL (7.4-10.4); MONOCYTES 7.6 % (2-11); NEUTROPHILS 85.6 % (40-80); PLATELET COUNT 346 10x3/uL (130-400); RBC 4.82 10x6/uL (4.00-5.40); RDW 23.3 % (11.5-14.5)
[2020-03-23 06:09] LABS: ALBUMIN 3.2 g/dL (3.4-5.0); BILIRUBIN - TOTAL 0.56 mg/dL (0.2-1.3); CALCIUM 8.6 mg/dL (8.5-10.1); MAGNESIUM - SERUM 2.2 mg/dL (1.8-2.4); PROTEIN - SERUM 6.5 g/dL (6.4-8.2)
[2020-03-23 06:27] LABS: ANION GAP 3.3 mmol/L (8-16); CREATININE - SERUM 1.3 mg/dL (0.6-1.3); POTASSIUM - SERUM 4.3 mmol/L (3.5-5.1)
--- NOTE | 2020-03-23 07:30 | NUR ---
REPORT RECIEVED. PT SITTING UP IN BED. RR EVEN AND UNLABORED ON 6L NC. PT HAS A R FA PIV THAT IS SL. RADHA CHE DC BY THIS AM. BED LOCKED AND IN LOWEST POSITION, CALL LIGHT WITHIN REACH. WILL CTM
[2020-03-23 08:25] VITALS: BP 102/53
--- NOTE | 2020-03-23 09:31 | OP ---
PATIENT NAME: DERIC SALDANA MEDICAL RECORD: [id number] :63 LOCATION:D.M2 [id number] ADMISSION DATE:03/19/20 SURGEON: CHANG DOWNING MD DATE OF OPERATION: 03/22/2020 PROCEDURE: Cardioversion. DESCRIPTION OF PROCEDURE: After general sedation via TIVA via anesthesia, a single synchronized shock was successful in restoring atrial fibrillation to normal sinus rhythm. IMPRESSION: Successful cardioversion on Deric Saldana. During the procedure, the patient was monitored continuously with pulse oximetry, telemetry, and blood pressure monitoring. TRANSINT:[id number] Voice Confirmation ID: [id number] DOCUMENT ID: [id number] CHANG DOWNING MD at 0931 CC: [id number] DICTATION DATE: 03/22/20 1512 ROOFING SUBCONTRACTOR: 03/23/20 0134 ADM IN [facility] [address] [place] [address]
--- NOTE | 2020-03-23 11:27 | NUR ---
Nutrition Follow-up: Pt sleeping soundly at time of visit and did not wake upon entering room. Chart reviewed. Cardioversion yesterday; 50-75% PO intake the day before. Diet: Diabetic Wt: 322# (03/22); 318.5# (03/20) Labs noted: Glu 324, Alb 3.2 Meds noted: Miralax, Humulin, Solumedrol, Lasix, electrolyte protocol -Encourage PO intake and honor food preferences within diet restrictions. -Monitor wt; noted daily wts ordered. -RD following.
[2020-03-23 12:37] VITALS: BP 111/62
--- NOTE | 2020-03-23 13:31 | MORECARE ---
CASE MANAGEMENT DISCHARGE SUMMARY PATIENT: DERIC CARBALLO UNIT: [id number] ADM DATE: 03/19/20 AGE: 54 : 63 SEX: F ROOM/BED: D.2109 AUTHOR: LUDWIG KILLIAN PHYSICIAN: REFERRING PHYSICIAN: PIPER MASON MD DATE OF SERVICE: 03/23/20 Discharge Plan Patient Name: DERIC CARBALLO Facility: [facility]:[place] : 1965 Planned Disposition: Home Anticipated Discharge Date: Discharge Date: Expected LOS: Initial Reviewer: [email or web address] Initial Review Date: 03/23/2020 Generated: 03/23/20 2:30 pm Patient Name: DERIC CARBALLO Page 89880 at 1331 All edits/amendments must be made on the electronic document DICTATION DATE: 03/23/20 1331 CONE WORKER: LAVON 03/23/20 1331 RPT#: [id number] DC DATE: STATUS: ADM IN [facility] [address] [place] [address] END OF REPORT
--- NOTE | 2020-03-23 13:44 | MORECARE ---
CASE MANAGEMENT DISCHARGE SUMMARY PATIENT: DERIC CARBALLO UNIT: [id number] ADM DATE: 03/19/20 AGE: 54 : 63 SEX: F ROOM/BED: D.4167 AUTHOR: CONSTANTIN,DOC PHYSICIAN: REFERRING PHYSICIAN: PIPER MASON MD DATE OF SERVICE: 03/23/20 Discharge Plan Patient Name: DERIC CARBALLO Facility: [facility]:[place] : 1965 Planned Disposition: Home Anticipated Discharge Date: Discharge Date: Expected LOS: Initial Reviewer: [email or web address] Initial Review Date: 03/23/2020 Generated: 03/23/20 2:44 pm DCP- Discharge Planning Updated by [email or web address]: Elsy Monge on 03/23/20 12:[address] Patient Name: DERIC CARBALLO Admission Status: ER Accout number: [id number] Admission Date: 03-19-2020 : 1965 Admission Diagnosis:EDEMA, UNSPECIFIED Attending: CEFERINO Current LOS: 4 Anticipated DC Date: Planned Disposition: Home Primary Insurance: MEDICAID [place] Discharge Planning Comments: CM met with patient to complete initial dc planning assessment. CM educated patient on the CM role and verbal consent given by patient to complete assessment. Patient lives at home alone. At discharge patient plans to return and feels this is a safe discharge. CM discussed availability of home health, rehab services, and medical equipment. Patient states she does not have portable oxygen, only stationary oxygen and a large tank if electricity goes out. I called Sly with [facility] and he states she will need room air ABG's with a pO2 less than 55 to qualify for portable oxygen. ABG's ordered and I informed the RT that they needed to be on room air to check for home portable oxygen needs. CM will continue to follow and will assist as needed with dc plans/needs. Narrow Gauge Brakeman: Elsy Monge DCPIA - Discharge Planning Initial Assessment Updated by [email or web address]: Elsy Monge on 03/23/20 1:31 pm * Is the patient Alert and Oriented? Yes * PCP Dr. Sands * Pharmacy [facility] in [place] * Preadmission Environment Home Alone * ADLs Independent * Equipment Nebulizer Other Oxygen * Other Equipment Trilogy * List name and contact numbers for known caregivers / representatives who currently or will assist patient after discharge: Clara Carballo - daughter - [phone] * Verbal permission to speak to the caregivers and representatives has been obtained from the patient. Yes * Community resources currently utilized None * Please name any agencies selected above. [facility] for DME * Additional services required to return to the preadmission environment? No * Can the patient safely return to the preadmission environment? Yes * Has this patient been hospitalized within the prior 30 days at any hospital? No Last DP export: 03/23/20 12:31 p Patient Name: DERIC CARBALLO Page 54318 at 1344 All edits/amendments must be made on the electronic document DICTATION DATE: 03/23/20 1344 TARRING MACHINE OPERATOR: LAVON 03/23/20 1344 RPT#: [id number] DC DATE: STATUS: ADM IN [facility] [address] [place] [address] END OF REPORT
[2020-03-23] MEDS ORDERED: BROVANA15 MCG/2 M INH (14:16)
[2020-03-23] MEDS ORDERED: ATROVENT 0.02%2.5 ML UPD (14:17)
[2020-03-23] MEDS ORDERED: PULMICORT0.5 MG/21 UPD (14:17)
[2020-03-23] MEDS ORDERED: PREDNISONE10 MG PO (14:19)
--- NOTE | 2020-03-23 14:38 | NUR ---
I have reviewed this patient and I concur with the Shift Assessment completed by the Licensed Practical Nurse today this shift.
--- NOTE | 2020-03-23 15:43 | MORECARE ---
CASE MANAGEMENT DISCHARGE SUMMARY PATIENT: DERIC CARBALLO UNIT: [id number] ADM DATE: 03/19/20 AGE: 54 : 63 SEX: F ROOM/BED: D.2102 AUTHOR: CONSTANTIN,DOC PHYSICIAN: REFERRING PHYSICIAN: PIPER MASON MD DATE OF SERVICE: 03/23/20 Discharge Plan Patient Name: DERIC CARBALLO Facility: [facility]:[place] : 1965 Planned Disposition: Home Anticipated Discharge Date: Discharge Date: Expected LOS: Initial Reviewer: [email or web address] Initial Review Date: 03/23/2020 Generated: 03/23/20 4:43 pm DCP- Discharge Planning Updated by [email or web address]: Elsy Monge on 03/23/20 12:[address] Patient Name: DERIC CARBALLO Admission Status: ER Accout number: [id number] Admission Date: 03-19-2020 : 1965 Admission Diagnosis:EDEMA, UNSPECIFIED Attending: CEFERINO Current LOS: 4 Anticipated DC Date: Planned Disposition: Home Primary Insurance: MEDICAID [place] Discharge Planning Comments: CM met with patient to complete initial dc planning assessment. CM educated patient on the CM role and verbal consent given by patient to complete assessment. Patient lives at home alone. At discharge patient plans to return and feels this is a safe discharge. CM discussed availability of home health, rehab services, and medical equipment. Patient states she does not have portable oxygen, only stationary oxygen and a large tank if electricity goes out. I called Sly with [facility] and he states she will need room air ABG's with a pO2 less than 55 to qualify for portable oxygen. ABG's ordered and I informed the RT that they needed to be on room air to check for home portable oxygen needs. CM will continue to follow and will assist as needed with dc plans/needs. Supervisor Inspection: Elsy Monge DCPIA - Discharge Planning Initial Assessment Updated by [email or web address]: Elsy Monge on 03/23/20 1:31 pm * Is the patient Alert and Oriented? Yes * PCP Dr. Sands * Pharmacy [facility] in [place] * Preadmission Environment Home Alone * ADLs Independent * Equipment Nebulizer Other Oxygen * Other Equipment Trilogy * List name and contact numbers for known caregivers / representatives who currently or will assist patient after discharge: Clara Carballo - daughter - [phone] * Verbal permission to speak to the caregivers and representatives has been obtained from the patient. Yes * Community resources currently utilized None * Please name any agencies selected above. [facility] for DME * Additional services required to return to the preadmission environment? No * Can the patient safely return to the preadmission environment? Yes * Has this patient been hospitalized within the prior 30 days at any hospital? No External Providers External Provider: [facility] Next Contact Date: Service Request Date: Service Type: Resolution: Reviewer: Comments: Last DP export: 03/23/20 12:44 p Patient Name: DERIC CARBALLO Page [id number] at 1543 All edits/amendments must be made on the electronic document DICTATION DATE: 03/23/201542 QUALITY LAB TECHNICIAN: LAVON 03/23/20 154 RPT#: [id number] DC DATE: STATUS: ADM IN [facility] [address] [place] [address] END OF REPORT
--- NOTE | 2020-03-23 16:01 | MORECARE ---
CASE MANAGEMENT DISCHARGE SUMMARY PATIENT: DERIC CARBALLO UNIT: [id number] ADM DATE: 03/19/20 AGE: 54 : 63 SEX: F ROOM/BED: D.3799 AUTHOR: CONSTANTIN,DOC PHYSICIAN: REFERRING PHYSICIAN: PIPER MASON MD DATE OF SERVICE: 03/23/20 Discharge Plan Patient Name: DERIC CARBALLO Facility: [facility]:[place] : 1965 Planned Disposition: Home Anticipated Discharge Date: Discharge Date: Expected LOS: Initial Reviewer: [email or web address] Initial Review Date: 03/23/2020 Generated: 03/23/20 5:00 pm Comments DCP- Discharge Planning Updated by [email or web address]: Elsy Monge on 03/23/20 2:[address] Patient qualifies for portable oxygen. Sly with P notified. DCP- Discharge Planning Updated by [email or web address]: Elsy Monge on 03/23/20 12:[address] Patient Name: DERIC CARBALLO Admission Status: ER Accout number: [id number] Admission Date: 03-19-2020 : 1965 Admission Diagnosis:EDEMA, UNSPECIFIED Attending: CEFERINO Current LOS: 4 Anticipated DC Date: Planned Disposition: Home Primary Insurance: MEDICAID [place] Discharge Planning Comments: CM met with patient to complete initial dc planning assessment. CM educated patient on the CM role and verbal consent given by patient to complete assessment. Patient lives at home alone. At discharge patient plans to return and feels this is a safe discharge. CM discussed availability of home health, rehab services, and medical equipment. Patient states she does not have portable oxygen, only stationary oxygen and a large tank if electricity goes out. I called Sly with [facility] and he states she will need room air ABG's with a pO2 less than 55 to qualify for portable oxygen. ABG's ordered and I informed the RT that they needed to be on room air to check for home portable oxygen needs. CM will continue to follow and will assist as needed with dc plans/needs. Certified Surgical Technologist: Elsy Monge DCPIA - Discharge Planning Initial Assessment Updated by [email or web address]: Elsy Monge on 03/23/20 1:31 pm * Is the patient Alert and Oriented? Yes * PCP Dr. Sands * Pharmacy [facility] in [place] * Preadmission Environment Home Alone * ADLs Independent * Equipment Nebulizer Other Oxygen * Other Equipment Trilogy * List name and contact numbers for known caregivers / representatives who currently or will assist patient after discharge: Clara Carballo - daughter - [phone] * Verbal permission to speak to the caregivers and representatives has been obtained from the patient. Yes * Community resources currently utilized None * Please name any agencies selected above. [facility] for DME * Additional services required to return to the preadmission environment? No * Can the patient safely return to the preadmission environment? Yes * Has this patient been hospitalized within the prior 30 days at any hospital? No Last DP export: 03/23/20 2:43 p Patient Name: DERIC CARBALLO Page 86413 at 1601 All edits/amendments must be made on the electronic document DICTATION DATE: 03/23/201599 HEALTH CARE LEGAL ASSISTANT: LAVON 03/23/201599 RPT#: [id number] DC DATE: STATUS: ADM IN [facility] [address] [place] [address] END OF REPORT
--- NOTE | 2020-03-23 17:00 | MORECARE ---
CASE MANAGEMENT DISCHARGE SUMMARY PATIENT: DERIC CARBALLO UNIT: [id number] ADM DATE: 03/19/20 AGE: 54 : 63 SEX: F ROOM/BED: D.8808 AUTHOR: CONSTANTIN,DOC PHYSICIAN: REFERRING PHYSICIAN: PIPER MASON MD DATE OF SERVICE: 03/23/20 Discharge Plan Patient Name: DERIC CARBALLO Facility: [facility]:[place] : 1965 Planned Disposition: Home Anticipated Discharge Date: Discharge Date: Expected LOS: Initial Reviewer: [email or web address] Initial Review Date: 03/23/2020 Generated: 03/23/20 6:00 pm Comments DCP- Discharge Planning Updated by [id number]: Elsy Monge on 03/23/20 3:[address] Portable oxygen tanks have been delivered to room. Daughter picking patient up for home. DCP- Discharge Planning Updated by [email or web address]: Elsy Monge on 03/23/20 2:[address] Patient qualifies for portable oxygen. Sly with [facility] notified. DCP- Discharge Planning Updated by [email or web address]: Elsy Monge on 03/23/20 12:[address] Patient Name: DERIC CARBALLO Admission Status: ER Accout number: [id number] Admission Date: 03-19-2020 : 1965 Admission Diagnosis:EDEMA, UNSPECIFIED Attending: CEFERINO Current LOS: 4 Anticipated DC Date: Planned Disposition: Home Primary Insurance: MEDICAID [place] Discharge Planning Comments: CM met with patient to complete initial dc planning assessment. CM educated patient on the CM role and verbal consent given by patient to complete assessment. Patient lives at home alone. At discharge patient plans to return and feels this is a safe discharge. CM discussed availability of home health, rehab services, and medical equipment. Patient states she does not have portable oxygen, only stationary oxygen and a large tank if electricity goes out. I called Sly with [facility] and he states she will need room air ABG's with a pO2 less than 55 to qualify for portable oxygen. ABG's ordered and I informed the RT that they needed to be on room air to check for home portable oxygen needs. CM will continue to follow and will assist as needed with dc plans/needs. First Press Operator: Elsy Monge DCPIA - Discharge Planning Initial Assessment Updated by [email or web address]: Elsy Monge on 03/23/20 1:31 pm * Is the patient Alert and Oriented? Yes * PCP Dr. Sands * Pharmacy [facility] in [place] * Preadmission Environment Home Alone * ADLs Independent * Equipment Nebulizer Other Oxygen * Other Equipment Trilogy * List name and contact numbers for known caregivers / representatives who currently or will assist patient after discharge: Clara Carballo - daughter - [phone] * Verbal permission to speak to the caregivers and representatives has been obtained from the patient. Yes * Community resources currently utilized None * Please name any agencies selected above. [facility] for DME * Additional services required to return to the preadmission environment? No * Can the patient safely return to the preadmission environment? Yes * Has this patient been hospitalized within the prior 30 days at any hospital? No Last DP export: 03/23/20 3:01 p Patient Name: DERIC CARBALLO Page 95422 at 1700 All edits/amendments must be made on the electronic document DICTATION DATE: 03/23/20 170 ECONOMIC DEVELOPMENT MANAGER: LAVON 03/23/20 170 RPT#: [id number] DC DATE: STATUS: ADM IN [facility] [address] [place] [address] END OF REPORT
--- NOTE | 2020-03-23 17:44 | NUR ---
DC PAPERWORK GONE OVER AND SIGNED WITH PT. ALL QUESTIONS ANSWERED. PIV REMOVED CATH TIP FULLLY INTACT. TELEMETRY REMOVED AND RETURNED TO DEPUTY COUNTY COUNSEL. ALL VALUBELS REMOVED FROM ROOM AND PT WHEELED TO FRONT ENTRANCE.
--- NOTE | 2020-03-24 08:38 | MORECARE ---
CASE MANAGEMENT DISCHARGE SUMMARY PATIENT: DERIC CARBALLO UNIT: [id number] ADM DATE: 03/19/20 AGE: 54 : 63 SEX: F ROOM/BED: D.7097 AUTHOR: CONSTANTIN,DOC PHYSICIAN: REFERRING PHYSICIAN: PIPER MASON MD DATE OF SERVICE: 03/24/20 Discharge Plan Patient Name: DERIC CARBALLO Facility: [facility]:[place] : 1965 Planned Disposition: Home Anticipated Discharge Date: Discharge Date: 03/23/2020 Expected LOS: Initial Reviewer: [email or web address] Initial Review Date: 03/23/2020 Generated: 03/24/20 9:38 am Comments DCP- Discharge Planning Updated by [email or web address]: Elsy Monge on 03/23/20 3:[address] Portable oxygen tanks have been delivered to room. Daughter picking patient up for home. DCP- Discharge Planning Updated by [id number]: Elsy Monge on 03/23/20 2:[address] Patient qualifies for portable oxygen. Sly with [facility] notified. DCP- Discharge Planning Updated by [email or web address]: Elsy Monge on 03/23/20 12:[address] Patient Name: DERIC CARBALLO Admission Status: ER Accout number: [id number] Admission Date: 03-19-2020 : 1965 Admission Diagnosis:EDEMA, UNSPECIFIED Attending: CEFERINO Current LOS: 4 Anticipated DC Date: Planned Disposition: Home Primary Insurance: MEDICAID [place] Discharge Planning Comments: CM met with patient to complete initial dc planning assessment. CM educated patient on the CM role and verbal consent given by patient to complete assessment. Patient lives at home alone. At discharge patient plans to return and feels this is a safe discharge. CM discussed availability of home health, rehab services, and medical equipment. Patient states she does not have portable oxygen, only stationary oxygen and a large tank if electricity goes out. I called Sly with [facility] and he states she will need room air ABG's with a pO2 less than 55 to qualify for portable oxygen. ABG's ordered and I informed the RT that they needed to be on room air to check for home portable oxygen needs. CM will continue to follow and will assist as needed with dc plans/needs. Quality Assurance Nurse: Elsy Monge DCPIA - Discharge Planning Initial Assessment Updated by [email or web address]: Elsy Monge on 03/23/20 1:31 pm * Is the patient Alert and Oriented? Yes * PCP Dr. Sands * Pharmacy [facility] in [place] * Preadmission Environment Home Alone * ADLs Independent * Equipment Nebulizer Other Oxygen * Other Equipment Trilogy * List name and contact numbers for known caregivers / representatives who currently or will assist patient after discharge: Clara Carballo - daughter - [phone] * Verbal permission to speak to the caregivers and representatives has been obtained from the patient. Yes * Community resources currently utilized None * Please name any agencies selected above. [facility] for D[facility] * Additional services required to return to the preadmission environment? No * Can the patient safely return to the preadmission environment? Yes * Has this patient been hospitalized within the prior 30 days at any hospital? No Last DP export: 03/23/20 4:00 p Patient Name: DERIC CARBALLO Page 26802 at 0838 All edits/amendments must be made on the electronic document DICTATION DATE: 03/24/20837 CREW TRAINER: LAVON 03/24/20837 RPT#: [id number] DC DATE:03/23/20 STATUS: DIS IN [facility] [address] [place] [address] END OF REPORT
== END 2020-03-23 17:46 | disposition home or self-care (01) | DRG 291 ==
LOC: D.ER 16:25 → D.M2 19:46
PROVIDERS: Family Medicine; ADMIT Family Medicine; ATTEND Family Medicine
DX: I11.0 Hypertensive heart disease with heart failure (principal); J96.21 Acute and chronic respiratory failure with hypoxia; I50.31 Acute diastolic (congestive) heart failure; J44.1 Chronic obstructive pulmonary disease with (acute) exacerbation; E87.1 Hypo-osmolality and hyponatremia; I48.0 Paroxysmal atrial fibrillation; E11.65 Type 2 diabetes mellitus with hyperglycemia; Z79.01 Long term (current) use of anticoagulants; E78.5 Hyperlipidemia, unspecified; K21.9 Gastro-esophageal reflux disease without esophagitis; G25.81 Restless legs syndrome; F41.8 Other specified anxiety disorders; D64.9 Anemia, unspecified; R91.1 Solitary pulmonary nodule; J30.9 Allergic rhinitis, unspecified; K59.00 Constipation, unspecified; Z86.718 Personal history of other venous thrombosis and embolism

== ENCOUNTER 2020-06-04 16:23 | Emergency (ER) | payer MEDICAID ==
[~2020-06-04] VITALS: Ht 160 cm; Wt 136.4 kg
[~2020-06-04 16:23] MED LIST changes: +ATROVENT 0.02%2.5 ML UPD; +PREDNISONE10 MG PO; +PULMICORT0.5 MG/21 UPD; +TRILOGY
[2020-06-04 16:35] VITALS: Ht 160 cm; Wt 136.4 kg
[2020-06-04 17:06] LABS: BASOPHILS 0.3 % (0-2); HEMATOCRIT 45.7 % (36.0-48.0); HEMOGLOBIN 13.1 g/dL (12-16); IMMATURE GRANULOCYTES 0.7 % (0-5); LYMPHOCYTES 25.1 % (15-50); MCH 24.9 pg (26.0-34.0); MCHC 28.7 g/dL (31.0-37.0); MCV 86.9 fL (80.0-100.0); MEAN PLATELET VOLUME 8.4 fL (7.4-10.4); MONOCYTES 8.8 % (2-11); NEUTROPHILS 63.1 % (40-80); PLATELET COUNT 311 10x3/uL (130-400); RBC 5.26 10x6/uL (4.00-5.40); WBC 9.6 10x3/uL (4.8-10.8)
[2020-06-04 17:13] LABS: APTT 30.2 SECONDS (22.8-39.4); INR 1.05 (0.85-1.17); PROTIME 13.7 SECONDS (11.6-15.0)
[2020-06-04 17:14] LABS: CALC OSMOLALITY 270 mosm/kg (275-300); CALCIUM 8.6 mg/dL (8.5-10.1); CARBON DIOXIDE 37.4 mmol/L (21.0-32.0); CHLORIDE - SERUM 96 mmol/L (98-107); CREATININE - SERUM 0.8 mg/dL (0.6-1.3); POTASSIUM - SERUM 4.1 mmol/L (3.5-5.1); SODIUM 135 mmol/L (136-145); UREA NITROGEN 10 mg/dL (7-18); eGFR NON AFRICAN AMERICAN 79 mL/min (90-120)
[2020-06-04 17:16] LABS: GLUCOSE 138 mg/dL (74-106)
[2020-06-04 17:32] LABS: ALBUMIN 3.3 g/dL (3.4-5.0); ALKALINE PHOSPHATASE 137 U/L (30-120); ALT (SGPT) 20 U/L (10-68); BILIRUBIN - TOTAL 0.37 mg/dL (0.2-1.3); CKMB 0.8 U/L (0.0-3.6); CREATINE KINASE 21 UL (21-215); PRO BNP 1311 pg/mL (0-125); PROTEIN - SERUM 7.2 g/dL (6.4-8.2); TROPONIN-I < 0.017 ng/mL (0.000-0.060)
[2020-06-04 18:36] VITALS: BP 132/76
== END 2020-06-04 18:36 | disposition home or self-care (01) ==
LOC: D.ER 16:23
PROVIDERS: Family Medicine
DX: I11.0 Hypertensive heart disease with heart failure (principal); I50.9 Heart failure, unspecified; R51 Headache; R06.02 Shortness of breath; E11.9 Type 2 diabetes mellitus without complications; J44.9 Chronic obstructive pulmonary disease, unspecified; Z99.81 Dependence on supplemental oxygen; K21.9 Gastro-esophageal reflux disease without esophagitis

== ENCOUNTER 2020-06-15 21:26 | Inpatient (IN) | payer MEDICAID ==
[~2020-06-15] VITALS: Ht 160 cm; Wt 141.8 kg
[2020-06-15 22:27] LABS: CALC OSMOLALITY 274 mosm/kg (275-300); CHLORIDE - SERUM 98 mmol/L (98-107); CREATININE - SERUM 1.3 mg/dL (0.6-1.3); GLUCOSE 138 mg/dL (74-106); POTASSIUM - SERUM 3.7 mmol/L (3.5-5.1); SODIUM 136 mmol/L (136-145); UREA NITROGEN 14 mg/dL (7-18); eGFR NON AFRICAN AMERICAN 45 mL/min (90-120)
[2020-06-15 22:31] LABS: HEMATOCRIT 43.1 % (36.0-48.0); HEMOGLOBIN 12.2 g/dL (12-16); LYMPHOCYTES 16.7 % (15-50); MCH 23.9 pg (26.0-34.0); MCHC 28.3 g/dL (31.0-37.0); MCV 84.3 fL (80.0-100.0); MEAN PLATELET VOLUME 8.5 fL (7.4-10.4); NEUTROPHILS 74.3 % (40-80); RBC 5.11 10x6/uL (4.00-5.40); RDW 18.9 % (11.5-14.5); WBC 11.9 10x3/uL (4.8-10.8)
[2020-06-15 22:32] LABS: PLATELET COUNT 392 10x3/uL (130-400)
[2020-06-15 22:32] LABS: BILIRUBIN NEGATIVE (NEGATIVE); KETONE NEGATIVE (NEGATIVE); NITRITE NEGATIVE (NEGATIVE); UROBILINOGEN NORMAL (NORMAL)
[2020-06-15 22:36] LABS: BACTERIA MODERATE /hpf (NONE SEEN); EPITHELIAL CELLS 0-5 /hpf (0-5); RED CELLS - URINE 0-5 /hpf (0-5); WHITE CELLS - URINE 0-5 /hpf (0-5)
[2020-06-15 22:38] LABS: ALBUMIN 3.1 g/dL (3.4-5.0); ALKALINE PHOSPHATASE 134 U/L (30-120); ALT (SGPT) 20 U/L (10-68); BILIRUBIN - TOTAL 0.39 mg/dL (0.2-1.3); C-REACTIVE PROTEIN 2.9 mg/dL (0.0-0.9); LIPASE 66 U/L (73-393); MAGNESIUM - SERUM 1.8 mg/dL (1.8-2.4); PRO BNP 4294 pg/mL (0-125); PROTEIN - SERUM 6.9 g/dL (6.4-8.2); THYROID STIMULATING HORMONE 1.38 uIU/mL (0.36-3.74); TROPONIN-I < 0.017 ng/mL (0.000-0.060)
[2020-06-15 22:39] LABS: UDS - AMPHET NEGATIVE QUAL (NEGATIVE); UDS - BARB NEGATIVE QUAL (NEGATIVE); UDS - BENZO NEGATIVE QUAL (NEGATIVE); UDS - COCAINE NEGATIVE QUAL (NEGATIVE); UDS - OPIATE POSITIVE QUAL (NEGATIVE); UDS - PCP NEGATIVE QUAL (NEGATIVE); UDS - THC NEGATIVE QUAL (NEGATIVE)
[2020-06-15 23:14] VITALS: BP 95/53
[2020-06-15 23:15] LABS: APTT 25.5 SECONDS (22.8-39.4); INR 1.11 (0.85-1.17); PROTIME 14.2 SECONDS (11.6-15.0)
[2020-06-15 23:17] LABS: D-DIMER-QUANTITATIVE 0.27 ug/mLFEU (0.20-0.54)
--- NOTE | 2020-06-16 00:30 | NUR ---
PT ARRIVED TO THE FLOOR. ALERT AND ORIENTED. UP WITH STAND BY ASSIST. PT STATES NO PROBLEMS AT THIS TIME. BREATHING SHALLOW AND SHORT OF BREATH. LUNG SOUNDS CLEAR. BOWEL SOUNDS ACTIVE. SKIN CLEAN DRY AND INTACT. IV SITE LT FA DRESSING CLEAN DRY AND ITNACT. NO SIGNS OF INFECTION OR INFULTRATION. WILL CONTINUE PLAN OF CARE. CALL LIGHT IN REACH. BED LOWERED AND LOCKED. BED RAILS UPX1.
[2020-06-16 00:42] VITALS: BP 121/44; BMI 55.5
[2020-06-16 04:00] VITALS: BP 141/69
--- NOTE | 2020-06-16 05:27 | NUR ---
I have reviewed this patient and I concur with the Shift Assessment completed by the Licensed Practical Nurse today this shift.
--- NOTE | 2020-06-16 07:47 | NUR ---
ALERT AND ORIENTED. LUNGS DIMINISHED BILATERALLY. HEART SOUNDS S1 AND S2 HEARD IN ALL HINES. BOWEL SOUNDS ACTIVE X 4. IV TO LFA PATENT WITHOUT REDNESS. DENIES NEEDS O2 PLACED BACK ON PATIENT AT 4L NC. BED LOW. CALL JOSHI AND PERSONAL ITEMS IN REACH. HAT IN TOILET FOR UA. PATIENT AWARE. WILL CONTINUE TO MONITOR.
[2020-06-16 09:00] VITALS: BP 111/50
[2020-06-16 10:52] LABS: HEMATOCRIT 43.4 % (36.0-48.0); HEMOGLOBIN 12.2 g/dL (12-16); LYMPHOCYTES 21.7 % (15-50); MCH 23.6 pg (26.0-34.0); MCHC 28.1 g/dL (31.0-37.0); MCV 83.8 fL (80.0-100.0); MEAN PLATELET VOLUME 8.1 fL (7.4-10.4); NEUTROPHILS 68.6 % (40-80); PLATELET COUNT 347 10x3/uL (130-400); RBC 5.18 10x6/uL (4.00-5.40); RDW 18.9 % (11.5-14.5); WBC 10.8 10x3/uL (4.8-10.8)
[2020-06-16 13:13] VITALS: BP 104/59
[2020-06-16 13:55] VITALS: Ht 160 cm; Wt 141.8 kg
[2020-06-16 17:17] VITALS: BP 127/64
[2020-06-16 20:00] VITALS: BP 112/68
[2020-06-17 04:00] VITALS: BP 95/46
--- NOTE | 2020-06-17 05:36 | NUR ---
I have reviewed this patient and I concur with the Shift Assessment completed by the Licensed Practical Nurse today this shift.
--- NOTE | 2020-06-17 07:30 | NUR ---
RECEIVED BEDSIDE REPORT. PT LAYING IN BED, EYES CLOSED, LOUD EVEN RESPIRATIONS. PIV IN RIGHT WRIST, S/L, PATENT NO REDNESS OR SWELLING. BED LOW, CL IN REACH. WILL CONTINUE TO MONITOR.
[2020-06-17 09:45] VITALS: BP 133/53
--- NOTE | 2020-06-17 10:00 | NUR ---
PT SITTING UP IN BED A&O X4. PT ABLE TO AMBULATE WITHOUT ASSIST. PT REFUSES TO WEAR BIPAP, EDUCATED PT ON NECESSITY OF BIPAP, VERBALIZED UNDERSTANDING, REPLACED BIPAP. BED LOW, CL IN REACH.
[2020-06-17 10:42] LABS: HEMATOCRIT 42.8 % (36.0-48.0); HEMOGLOBIN 11.8 g/dL (12-16); LYMPHOCYTES 18.2 % (15-50); MCH 23.6 pg (26.0-34.0); MCHC 27.6 g/dL (31.0-37.0); MCV 85.6 fL (80.0-100.0); MEAN PLATELET VOLUME 8.5 fL (7.4-10.4); NEUTROPHILS 72.6 % (40-80); PLATELET COUNT 370 10x3/uL (130-400); RDW 18.9 % (11.5-14.5); WBC 10.4 10x3/uL (4.8-10.8)
[2020-06-17 10:49] LABS: BILIRUBIN - TOTAL 0.35 mg/dL (0.2-1.3); CALCIUM 7.9 mg/dL (8.5-10.1); POTASSIUM - SERUM 3.3 mmol/L (3.5-5.1); PROTEIN - SERUM 6.7 g/dL (6.4-8.2)
[2020-06-17 10:51] LABS: ANION GAP 3.3 mmol/L (8-16)
[2020-06-17 12:54] VITALS: BP 119/50
[2020-06-17 16:30] VITALS: BP 118/58
--- NOTE | 2020-06-17 19:10 | NUR ---
RECEIVED REPORT, ASSUMED CARE, DENIES PAIN, BREATHING EVEN UNLABRORED, CALL LIGHT IN REACH, BED LOWEST POSITION, NO S/S OF DISTRESS NOTED, IV PATENT, BIPAP ON
[2020-06-17 22:04] VITALS: BP 117/62
[2020-06-18 03:09] VITALS: BP 108/88
[2020-06-18 04:00] VITALS: BP 108/82
--- NOTE | 2020-06-18 04:15 | NUR ---
I have reviewed this patient and I concur with the Shift Assessment completed by the Licensed Practical Nurse today this shift.
[2020-06-18 07:25] LABS: BASOPHILS 0.2 % (0-2); EOSINOPHILS 2.6 % (0-7); HEMATOCRIT 40.1 % (36.0-48.0); IMMATURE GRANULOCYTES 0.4 % (0-5); LYMPHOCYTES 21.3 % (15-50); MCH 23.5 pg (26.0-34.0); MCHC 27.4 g/dL (31.0-37.0); MCV 85.7 fL (80.0-100.0); MEAN PLATELET VOLUME 8.6 fL (7.4-10.4); MONOCYTES 8.9 % (2-11); NEUTROPHILS 66.6 % (40-80); PLATELET COUNT 278 10x3/uL (130-400); RBC 4.68 10x6/uL (4.00-5.40); RDW 19.3 % (11.5-14.5); WBC 10.3 10x3/uL (4.8-10.8)
[2020-06-18 07:50] LABS: CALCIUM 8.1 mg/dL (8.5-10.1); CREATININE - SERUM 0.9 mg/dL (0.6-1.3); MAGNESIUM - SERUM 1.7 mg/dL (1.8-2.4); PHOSPHOROUS 2.7 mg/dL (2.5-4.9); POTASSIUM - SERUM 3.5 mmol/L (3.5-5.1)
[2020-06-18 08:16] LABS: CARBON DIOXIDE 40.5 mmol/L (21.0-32.0)
--- NOTE | 2020-06-18 09:00 | NUR ---
ASSESSMENT PER FLOW SHEET. PATIENT IS WITHOUT DISTRESS.CALL LIGHT IN REACH
[2020-06-18 10:26] VITALS: BP 110/56
[2020-06-18 14:48] VITALS: BP 99/49
--- NOTE | 2020-06-18 15:02 | NUR ---
IN AND OUT CATH USING CLIP AND HANGER ATTACHER. URINE TO LAB ORDERED
--- NOTE | 2020-06-18 18:38 | NUR ---
DENIES NEEDS,REMAINS WITHOUT CHANGE. CONT PLAN OF CARE
--- NOTE | 2020-06-18 19:46 | NUR ---
RECEIVED REPORT, ASSUMED CARE, DENIES PAIN, BREATHING EVEN UNLABRORED, CALL LIGHT IN REACH, BED LOWEST POSITION, NO S/S OF DISTRESS NOTED, IV PATENT, BIPAP ON, DENIES NEEDS
[2020-06-18 21:00] VITALS: BP 92/40
--- NOTE | 2020-06-18 21:15 | NUR ---
BP 92/40 MANUALLY, ANGLE ARROYO APRN NOTIFIED STATED TO GIVE 500 BOLUS
--- NOTE | 2020-06-18 21:50 | NUR ---
500 BOLUS STARTED, RYTHMOL AND LASIX HELD WILL REVALUATE AT MIDNIGHT
[2020-06-18 22:21] VITALS: BP 80/28
[2020-06-19 01:07] VITALS: BP 125/68
--- NOTE | 2020-06-19 03:11 | NUR ---
I have reviewed this patient and I concur with the Shift Assessment completed by the Licensed Practical Nurse today this shift.
[2020-06-19 06:49] VITALS: BP 85/33
[2020-06-19 07:50] LABS: BASOPHILS 0.2 % (0-2); HEMATOCRIT 41.5 % (36.0-48.0); HEMOGLOBIN 11.2 g/dL (12-16); IMMATURE GRANULOCYTES 0.4 % (0-5); LYMPHOCYTES 19.5 % (15-50); MCH 23.3 pg (26.0-34.0); MCV 86.3 fL (80.0-100.0); MEAN PLATELET VOLUME 8.9 fL (7.4-10.4); MONOCYTES 9.6 % (2-11); NEUTROPHILS 67.3 % (40-80); PLATELET COUNT 294 10x3/uL (130-400); RBC 4.81 10x6/uL (4.00-5.40); RDW 19.3 % (11.5-14.5); WBC 9.7 10x3/uL (4.8-10.8)
--- NOTE | 2020-06-19 08:12 | NUR ---
ASSESSMENT PER FLOW SHEET. PATIENT IS WITHOUT DISTRESS. LOW BP THIS AM 104/56. SONIYA AND JENNIFER HELD TILL MD ROUNDS.MONITOR FOR NEEDS
[2020-06-19 08:37] LABS: CALC OSMOLALITY 287 mosm/kg (275-300); CALCIUM 8.4 mg/dL (8.5-10.1); CARBON DIOXIDE 38.8 mmol/L (21.0-32.0); CHLORIDE - SERUM 103 mmol/L (98-107); CREATININE - SERUM 0.8 mg/dL (0.6-1.3); GLUCOSE 116 mg/dL (74-106); MAGNESIUM - SERUM 1.8 mg/dL (1.8-2.4); PHOSPHOROUS 3.3 mg/dL (2.5-4.9); SODIUM 144 mmol/L (136-145); UREA NITROGEN 12 mg/dL (7-18); eGFR NON AFRICAN AMERICAN 79 mL/min (90-120)
[2020-06-19 08:44] LABS: POTASSIUM - SERUM 4.4 mmol/L (3.5-5.1)
[2020-06-19 09:13] VITALS: BP 104/56; BP 119/46
[2020-06-19] MEDS ORDERED: TESSALON PERLE100 MG PO (12:17)
[2020-06-19] MEDS ORDERED: OMNICEF300 MG PO (12:18)
--- NOTE | 2020-06-19 14:06 | NUR ---
PT'S PHARMACY CLOSED UNTIL SATURDAY. [facility] CALLED TO [facility] [address], SPOKE WITH DEBBIE, PHARMACIST.
--- NOTE | 2020-06-19 14:49 | NUR ---
IV DCD WITH CATH TIP INTACT. DISCHARGE INSTRUCTIONS, STATES UNDERSTANDING. LEFT UNNIT VIA WHEELCHAIR.
== END 2020-06-19 14:49 | disposition home or self-care (01) | DRG 291 ==
LOC: D.ER 21:26 → D.MS 23:33
PROVIDERS: Emergency Medicine; Family Medicine; ADMIT Family Medicine; ATTEND Family Medicine
DX: I11.0 Hypertensive heart disease with heart failure (principal); J96.22 Acute and chronic respiratory failure with hypercapnia; J96.21 Acute and chronic respiratory failure with hypoxia; G93.41 Metabolic encephalopathy; E87.1 Hypo-osmolality and hyponatremia; Z68.43 Body mass index [BMI] 50.0-59.9, adult; N39.0 Urinary tract infection, site not specified; I50.33 Acute on chronic diastolic (congestive) heart failure; R41.82 Altered mental status, unspecified; G47.33 Obstructive sleep apnea (adult) (pediatric); I48.0 Paroxysmal atrial fibrillation; R91.8 Other nonspecific abnormal finding of lung field; F17.200 Nicotine dependence, unspecified, uncomplicated; K21.9 Gastro-esophageal reflux disease without esophagitis; G25.81 Restless legs syndrome; E78.5 Hyperlipidemia, unspecified; F41.8 Other specified anxiety disorders; D64.9 Anemia, unspecified; E11.65 Type 2 diabetes mellitus with hyperglycemia; J44.9 Chronic obstructive pulmonary disease, unspecified; I48.91 Unspecified atrial fibrillation; R60.9 Edema, unspecified; J45.909 Unspecified asthma, uncomplicated; E66.01 Morbid (severe) obesity due to excess calories; E87.6 Hypokalemia

== ENCOUNTER → 2020-07-07 14:42 | Outpatient (CLI) | payer MEDICAID ==
[2020-06-16 13:55] VITALS: BMI 55.3
[~2020-07-07 14:42] MED LIST changes: +TRELEGY ELLIPT1 EACH INH; -TRILOGY
== END | disposition home or self-care (01) ==
LOC: D.RT 14:30
PROVIDERS: ATTEND Internal Medicine Pulmonary Disease
DX: J44.9 Chronic obstructive pulmonary disease, unspecified (principal)

== ENCOUNTER 2020-07-08 12:31 | Inpatient (IN) | payer MEDICAID ==
[~2020-07-08] VITALS: Ht 160 cm; Wt 136.4 kg
[2020-07-08 13:30] LABS: BASOPHILS 0.3 % (0-2); EOSINOPHILS 2.3 % (0-7); HEMATOCRIT 47.5 % (36.0-48.0); HEMOGLOBIN 13.3 g/dL (12-16); IMMATURE GRANULOCYTES 0.3 % (0-5); LYMPHOCYTES 19.5 % (15-50); MCH 23.5 pg (26.0-34.0); MCV 83.8 fL (80.0-100.0); MEAN PLATELET VOLUME 8.4 fL (7.4-10.4); MONOCYTES 10.1 % (2-11); NEUTROPHILS 67.5 % (40-80); PLATELET COUNT 289 10x3/uL (130-400); RBC 5.67 10x6/uL (4.00-5.40); RDW 20.3 % (11.5-14.5); WBC 10.2 10x3/uL (4.8-10.8)
--- NOTE | 2020-07-08 13:38 | NUR ---
NASAL SWAB COLLECTED, LABELED AT BS AND SENT TO LAB
[2020-07-08 13:39] LABS: CALC OSMOLALITY 272 mosm/kg (275-300); CALCIUM 8.7 mg/dL (8.5-10.1); CHLORIDE - SERUM 100 mmol/L (98-107); CREATININE - SERUM 0.8 mg/dL (0.6-1.3); GLUCOSE 148 mg/dL (74-106); POTASSIUM - SERUM 4.1 mmol/L (3.5-5.1); SODIUM 136 mmol/L (136-145); UREA NITROGEN 7 mg/dL (7-18); eGFR NON AFRICAN AMERICAN 79 mL/min (90-120)
[2020-07-08 13:45] VITALS: BP 105/45
--- NOTE | 2020-07-08 13:45 | NUR ---
IV SITED LEFT HAND WITH BLOOD DRAW INCLUDING BC
[2020-07-08 13:53] LABS: APTT 29.4 SECONDS (22.8-39.4); INR 1.09 (0.85-1.17); PROTIME 14.1 SECONDS (11.6-15.0)
--- NOTE | 2020-07-08 13:53 | NUR ---
C/O CHRONIC LOW BACK PAIN. DENIES CP
[2020-07-08 13:56] LABS: ALBUMIN 3.2 g/dL (3.4-5.0); ALKALINE PHOSPHATASE 146 U/L (30-120); ALT (SGPT) 24 U/L (10-68); BILIRUBIN - TOTAL 0.39 mg/dL (0.2-1.3); CKMB 2.2 U/L (0.0-3.6); CREATINE KINASE 58 UL (21-215); PRO BNP 1253 pg/mL (0-125); PROTEIN - SERUM 6.9 g/dL (6.4-8.2)
[2020-07-08 14:07] LABS: TROPONIN-I < 0.017 ng/mL (0.000-0.060)
[2020-07-08 14:45] VITALS: BP 127/76
[2020-07-08 16:33] LABS: C-REACTIVE PROTEIN 1.6 mg/dL (0.0-0.9)
[2020-07-08 16:38] VITALS: BP 109/64
--- NOTE | 2020-07-08 17:19 | NUR ---
RCKEYA TC FROM LAB COVID= NEGATIVE
--- NOTE | 2020-07-08 18:54 | NUR ---
REPORT CALLED TO EULALIO AVILA
[2020-07-08 19:00] VITALS: BP 133/65
--- NOTE | 2020-07-08 19:09 | NUR ---
ADMIT TO ROOM # 2134, CONDITION STABLE
[2020-07-09] VITALS: BP 128/65
[2020-07-09 04:24] VITALS: BP 133/65; Ht 160 cm; Wt 136.4 kg
[2020-07-09 08:27] LABS: BASOPHILS 0.1 % (0-2); EOSINOPHILS 0 % (0-7); HEMATOCRIT 43.9 % (36.0-48.0); HEMOGLOBIN 12.4 g/dL (12-16); IMMATURE GRANULOCYTES 0.6 % (0-5); LYMPHOCYTES 9.7 % (15-50); MCH 23.5 pg (26.0-34.0); MCHC 28.2 g/dL (31.0-37.0); MCV 83.1 fL (80.0-100.0); MEAN PLATELET VOLUME 8.9 fL (7.4-10.4); MONOCYTES 4.4 % (2-11); NEUTROPHILS 85.2 % (40-80); PLATELET COUNT 308 10x3/uL (130-400); RBC 5.28 10x6/uL (4.00-5.40); RDW 20.1 % (11.5-14.5); WBC 9.9 10x3/uL (4.8-10.8)
[2020-07-09 08:45] LABS: APTT 28.5 SECONDS (22.8-39.4); INR 1.14 (0.85-1.17); PROTIME 14.5 SECONDS (11.6-15.0)
[2020-07-09 08:49] LABS: ANION GAP 4.6 mmol/L (8-16); BILIRUBIN - TOTAL 0.41 mg/dL (0.2-1.3); CALCIUM 8.7 mg/dL (8.5-10.1); CARBON DIOXIDE 36.5 mmol/L (21.0-32.0); CREATININE - SERUM 0.9 mg/dL (0.6-1.3); PHOSPHOROUS 2.6 mg/dL (2.5-4.9); POTASSIUM - SERUM 4.1 mmol/L (3.5-5.1); PROTEIN - SERUM 6.9 g/dL (6.4-8.2)
[2020-07-09 08:56] VITALS: BP 136/69
--- NOTE | 2020-07-09 10:46 | NUR ---
PT AWAKE AND ORIENTED, LYING IN BED. UP ADLIB WITHOUT DIFFICULTY. THIS METALWORKING SPECIALIST VIEWED PT AMBULATING WITHOUT DIFFICULTY. PT STATES SHE'S CONFUSED ON WHY IF SHE WAS NEGATIVE SHE IS STILL IN ISOLATION. WILL INVESTIGATE FURTHER. CL IN REACH, SRX2.
--- NOTE | 2020-07-09 16:05 | NUR ---
ASSESSMENT REVIEWED I AGREE WITH Kevin MCDONALD LPN ASSESSMENT
[2020-07-09 20:00] VITALS: BP 116/61
[2020-07-10] VITALS: BP 114/43
[2020-07-10 04:00] VITALS: BP 118/58
[2020-07-10 07:13] LABS: BASOPHILS 0.1 % (0-2); EOSINOPHILS 0 % (0-7); HEMATOCRIT 41.7 % (36.0-48.0); HEMOGLOBIN 11.7 g/dL (12-16); IMMATURE GRANULOCYTES 0.4 % (0-5); LYMPHOCYTES 11.8 % (15-50); MCH 23.1 pg (26.0-34.0); MCHC 28.1 g/dL (31.0-37.0); MCV 82.4 fL (80.0-100.0); MEAN PLATELET VOLUME 8.5 fL (7.4-10.4); MONOCYTES 6.8 % (2-11); NEUTROPHILS 80.9 % (40-80); PLATELET COUNT 274 10x3/uL (130-400); RBC 5.06 10x6/uL (4.00-5.40); RDW 19.8 % (11.5-14.5); WBC 10.8 10x3/uL (4.8-10.8)
[2020-07-10 07:34] LABS: ANION GAP 7.8 mmol/L (8-16); CALCIUM 8.5 mg/dL (8.5-10.1); CARBON DIOXIDE 36.1 mmol/L (21.0-32.0); CREATININE - SERUM 0.9 mg/dL (0.6-1.3); MAGNESIUM - SERUM 1.9 mg/dL (1.8-2.4); POTASSIUM - SERUM 3.9 mmol/L (3.5-5.1)
[2020-07-10 07:35] LABS: PHOSPHOROUS 3.4 mg/dL (2.5-4.9)
[2020-07-10 08:49] VITALS: BP 114/49
[2020-07-10] MEDS ORDERED: OMNICEF300 MG PO (09:51)
--- NOTE | 2020-07-10 13:04 | NUR ---
PT ESCORTED OUT VIA WHEELCHAIR TO POV DAUGHTER DRIVING
--- NOTE | 2020-07-10 14:02 | MORECARE ---
CASE MANAGEMENT DISCHARGE SUMMARY PATIENT: DERIC CARBALLO UNIT: [id number] ADM DATE: 07/08/20 AGE: 54 : 63 SEX: F ROOM/BED: D.2134 AUTHOR: LUDWIG KILLIAN PHYSICIAN: REFERRING PHYSICIAN: ABBY SINGH MD DATE OF SERVICE: 07/10/20 Discharge Plan Patient Name: DERIC CARBALLO [facility] [facility] 1965 Planned Disposition: Home Anticipated Discharge Date: 07/10/20 Discharge Date: 07/10/2020 Expected LOS: 2 Initial Reviewer: [email or web address] Initial Review Date: 07/10/2020 Generated: 07/10/20 3:02 pm Patient Name: DERIC CARBALLO Page [phone] at 1402 All edits/amendments must be made on the electronic document DICTATION DATE: 07/10/20 140 RECEP: LAVON 07/10/20 1402 RPT#: [id number] DC DATE:07/10/20 STATUS: DIS IN [facility] [address] [place] [address] END OF REPORT
--- NOTE | 2020-07-10 14:10 | MORECARE ---
CASE MANAGEMENT DISCHARGE SUMMARY PATIENT: DERIC CARBALLO UNIT: [id number] ADM DATE: 07/08/20 AGE: 54 : 63 SEX: F ROOM/BED: D.1453 AUTHOR: CONSTANTINDOC PHYSICIAN: REFERRING PHYSICIAN: ABBY SINGH MD DATE OF SERVICE: 07/10/20 Discharge Plan Patient Name: DERIC CARBALLO Facility: [facility]:[place] : 1965 Planned Disposition: Home Anticipated Discharge Date: 07/10/20 Discharge Date: 07/10/2020 Expected LOS: 2 Initial Reviewer: [email or web address] Initial Review Date: 07/10/2020 Generated: 07/10/20 3:09 pm Comments DCP- Discharge Planning Updated by [id number]: Joel Fuentes on 07/10/20 1:[address] Patient Name: DERIC CARBALLO Admission Status: ER Accout number: [id number] Admission Date: 07-08-2020 : 1965 Admission Diagnosis: Attending: SAMANTHA, Current LOS: 2 Anticipated DC Date: 07-10-2020 Planned Disposition: Home Primary Insurance: MEDICAID [place] Discharge Planning Comments: CM met with patient to complete initial dc planning assessment. CM educated patient on the CM role and verbal consent was given by patient to complete assessment. CM verified patient's address, phone number, and emergency contact phone numbers. Patient lives at home with family. At discharge patient plans to return home and feels this is a safe discharge. The patient has 0 steps to navigate to enter the home and it is safe. Patient fills his/her medications at [facility] in [place]. CM discussed availability of home health, rehab services, and medical equipment. Patient states that she has DME at home a Wheel Chair, CPAP (Trilogy), Home O2, and O2 concentrator. Patient states that she has her O2 tank with her in the room. O2 is maintained and filled by [facility]. Patient declined HHS, SNF, IPR, and DME. No other known discharge needs were discussed at this time. Transportation provider at discharge will be her daughter Clara Carballo ([phone]). CM will continue to follow and will assist as needed with dc plans/needs. Fur Scraper: Joel Fuentes DCPIA - Discharge Planning Initial Assessment Updated by [email or web address]: Joel Fuentes on 07/10/20 2:04 pm * Is the patient Alert and Oriented? Yes * How many steps to enter\exit or inside your home? 0/0 * PCP Dr. Sands * Pharmacy [facility] in [place] * Preadmission Environment Home with Family * ADLs Independent * Equipment CPAP Oxygen Wheelchair * Other Equipment Wheel Chair, CPAP (Trilogy), Home O2, and O2 concentrator * List name and contact numbers for known caregivers / representatives who currently or will assist patient after discharge: daughter Clara Carballo ([phone]) * Verbal permission to speak to the caregivers and representatives has been obtained from the patient. Yes * Community resources currently utilized None * Please name any agencies selected above. n/a * Additional services required to return to the preadmission environment? No * Can the patient safely return to the preadmission environment? Yes * Has this patient been hospitalized within the prior 30 days at any hospital? No Coverage Notice Reviewer: [id number] - Joel Fuentes Notice Issued Date-Time: 07/10/2020 10:25 Notice Type: Patient Choice Letter Notice Delivered To: Patient Relationship to Patient: Self Stakes Player Name: Delivery Method: HAND - Hand Delivered Tammi Days: Prior Verbal Notification: Recipient Understood Notice: Yes Recipient Signature: Yes Med Rec Note Co-signed by Attending: Coverage Notice Comment: 0 DME/SNF/HHS/IPR Last DP export: 07/10/20 1:03 p Patient Name: DERIC CARBALLO Page [id number] at 1410 All edits/amendments must be made on the electronic document DICTATION DATE: 07/10/20 140 THERAPIST PHYS: LAVON 07/10/20 1409 RPT#: [id number] DC DATE:07/10/20 STATUS: DIS IN [facility] [address] [place] [address] END OF REPORT
--- NOTE | 2020-07-11 08:55 | MORECARE ---
CASE MANAGEMENT DISCHARGE SUMMARY PATIENT: DERIC CARBALLO UNIT: [id number] ADM DATE: 07/08/20 AGE: 54 : 63 SEX: F ROOM/BED: D.3874 AUTHOR: CONSTANTINDOC PHYSICIAN: REFERRING PHYSICIAN: ABBY SINGH MD DATE OF SERVICE: 07/11/20 Discharge Plan Patient Name: DERIC CARBALLO Facility: [facility]:[place] : 1965 Planned Disposition: Home Anticipated Discharge Date: 07/10/20 Discharge Date: 07/10/2020 Expected LOS: 2 Initial Reviewer: [email or web address] Initial Review Date: 07/10/2020 Generated: 07/11/20 9:54 am Comments DCP- Discharge Planning Updated by [email or web address]: Joel Fuentes on 07/10/20 1:[address] Patient Name: DERIC CARBALLO Admission Status: ER Accout number: [id number] Admission Date: 07-08-2020 : 1965 Admission Diagnosis: Attending: SAMANTHA, Current LOS: 2 Anticipated DC Date: 07-10-2020 Planned Disposition: Home Primary Insurance: MEDICAID [place] Discharge Planning Comments: CM met with patient to complete initial dc planning assessment. CM educated patient on the CM role and verbal consent was given by patient to complete assessment. CM verified patient's address, phone number, and emergency contact phone numbers. Patient lives at home with family. At discharge patient plans to return home and feels this is a safe discharge. The patient has 0 steps to navigate to enter the home and it is safe. Patient fills his/her medications at [facility] in [place]. CM discussed availability of home health, rehab services, and medical equipment. Patient states that she has DME at home a Wheel Chair, CPAP (Trilogy), Home O2, and O2 concentrator. Patient states that she has her O2 tank with her in the room. O2 is maintained and filled by [facility]. Patient declined HHS, SNF, IPR, and DME. No other known discharge needs were discussed at this time. Transportation provider at discharge will be her daughter Clara Carballo ([phone]). CM will continue to follow and will assist as needed with dc plans/needs. Kiln Repairer: Joel Fuentes DCPIA - Discharge Planning Initial Assessment Updated by [email or web address]: Joel Fuentes on 07/10/20 2:04 pm * Is the patient Alert and Oriented? Yes * How many steps to enter\exit or inside your home? 0/0 * PCP Dr. Sands * Pharmacy [facility] in [place] * Preadmission Environment Home with Family * ADLs Independent * Equipment CPAP Oxygen Wheelchair * Other Equipment Wheel Chair, CPAP (Trilogy), Home O2, and O2 concentrator * List name and contact numbers for known caregivers / representatives who currently or will assist patient after discharge: daughter Clara Carballo ([phone]) * Verbal permission to speak to the caregivers and representatives has been obtained from the patient. Yes * Community resources currently utilized None * Please name any agencies selected above. n/a * Additional services required to return to the preadmission environment? No * Can the patient safely return to the preadmission environment? Yes * Has this patient been hospitalized within the prior 30 days at any hospital? No Coverage Notice Reviewer: [id number] - Joel Fuentes Notice Issued Date-Time: 07/10/2020 10:25 Notice Type: Patient Choice Letter Notice Delivered To: Patient Relationship to Patient: Self Bobbin Collector Name: Delivery Method: HAND - Hand Delivered Tammi Days: Prior Verbal Notification: Recipient Understood Notice: Yes Recipient Signature: Yes Med Rec Note Co-signed by Attending: Coverage Notice Comment: 0 DME/SNF/HHS/IPR Last DP export: 07/10/20 1:10 p Patient Name: DERIC CARBALLO Page 70802 at 0855 All edits/amendments must be made on the electronic document DICTATION DATE: 07/11/20 0854 LEADLIGHTER: LAVON 07/11/20 0854 RPT#: [id number] DC DATE:07/10/20 STATUS: DIS IN [facility] [address] [place] [address] END OF REPORT
== END 2020-07-10 13:08 | disposition home or self-care (01) | DRG 193 ==
LOC: D.ER 12:31 → D.M2 15:54
PROVIDERS: Family Medicine; ADMIT Family Medicine; ATTEND Family Medicine
DX: J18.9 Pneumonia, unspecified organism (principal); J96.21 Acute and chronic respiratory failure with hypoxia; J44.1 Chronic obstructive pulmonary disease with (acute) exacerbation; J44.0 Chronic obstructive pulmonary disease with (acute) lower respiratory infection; J96.12 Chronic respiratory failure with hypercapnia; J98.11 Atelectasis; Z68.43 Body mass index [BMI] 50.0-59.9, adult; I11.0 Hypertensive heart disease with heart failure; I50.9 Heart failure, unspecified; I48.91 Unspecified atrial fibrillation; F41.8 Other specified anxiety disorders; K21.9 Gastro-esophageal reflux disease without esophagitis; E66.01 Morbid (severe) obesity due to excess calories

== ENCOUNTER 2021-01-26 18:44 | Inpatient (IN) | payer MEDICAID ==
[~2021-01-26] VITALS: Ht 160 cm; Wt 136.1 kg
[~2021-01-26 18:44] MED LIST changes: +AZITHROMYCIN500 MG PO; +BACLOFEN20 M1 PO; +FEXOFENADINE HC60 MG PO; +FUROSEMIDE40 MG PO; +GLIMEPIRIDE4 MG PO; +MEDROL DOSE PACK4 MG; +MUCINEX600 MG PO; +ROPINIROLE HCL2 MG PO
[2021-01-26 19:37] LABS: BASOPHILS 0.3 % (0-2); EOSINOPHILS 2.3 % (0-7); HEMATOCRIT 42.3 % (36.0-48.0); HEMOGLOBIN 11.5 g/dL (12-16); IMMATURE GRANULOCYTES 0.3 % (0-5); LYMPHOCYTES 23.6 % (15-50); MCH 22.8 pg (26.0-34.0); MCHC 27.2 g/dL (31.0-37.0); MCV 83.8 fL (80.0-100.0); MONOCYTES 11.3 % (2-11); NEUTROPHIL ABS# 6.33 10x3/uL (1.56-6.13); NEUTROPHILS 62.2 % (40-80); PLATELET COUNT 322 10x3/uL (130-400); RBC 5.05 10x6/uL (4.00-5.40); RDW 20.4 % (11.5-14.5); WBC 10.2 10x3/uL (4.8-10.8)
[2021-01-26 19:44] LABS: APTT 31.7 SECONDS (22.8-39.4); INR 1.38 (0.85-1.17); PROTIME 15.8 SECONDS (11.6-15.0)
[2021-01-26 20:00] VITALS: BP 94/42
[2021-01-26 20:00] LABS: ALKALINE PHOSPHATASE 116 U/L (30-120); ALT (SGPT) 61 U/L (10-68); CALCIUM 8.4 mg/dL (8.5-10.1); CHLORIDE - SERUM 96 mmol/L (98-107); CKMB 1.3 U/L (0.0-3.6); CREATINE KINASE 162 UL (21-215); CREATININE - SERUM 0.9 mg/dL (0.6-1.3); PRO BNP 1756 pg/mL (0-125); PROTEIN - SERUM 7.2 g/dL (6.4-8.2); SODIUM 138 mmol/L (136-145); TROPONIN-I < 0.017 ng/mL (0.000-0.060); UREA NITROGEN 9 mg/dL (7-18); eGFR NON AFRICAN AMERICAN 69 mL/min (90-120)
[2021-01-26 20:10] LABS: CALC OSMOLALITY 272 mosm/kg (275-300); GLUCOSE 68 mg/dL (74-106)
[2021-01-26 20:11] LABS: CARBON DIOXIDE 42.9 mmol/L (21.0-32.0); POTASSIUM - SERUM 2.6 mmol/L (3.5-5.1)
[2021-01-26 21:00] VITALS: BP 108/47
[2021-01-27 00:51] VITALS: BP 105/42
[2021-01-27 01:44] VITALS: BP 105/42; BMI 53.2
--- NOTE | 2021-01-27 03:16 | NUR ---
PATIENT ADMITTED FOR CHF, ONLY MILD SHORTNESS OF BREATH NOTED, SHE IS AAOX3, SHE IS ABLE TO LET ALL OF HER NEEDS BE KNOWN, SHE HAS BRUISES TO HER ARMS FROM FALLING OFF OF HER BED AT HOME. SALINE LOCK TO RIGHT AC. BED IN LOW POSITION, SIDE RAILS UP X 2, CALL LIGHT WITHIN REACH. WILL FOLLOW POC
[2021-01-27 05:17] VITALS: BP 118/62
[2021-01-27 06:31] LABS: BASOPHILS 0.2 % (0-2); EOSINOPHILS 0.5 % (0-7); HEMATOCRIT 43.6 % (36.0-48.0); HEMOGLOBIN 11.6 g/dL (12-16); IMMATURE GRANULOCYTES 1.1 % (0-5); LYMPHOCYTE ABS# 1.04 10x3/uL (1.18-3.74); LYMPHOCYTES 10.4 % (15-50); MCH 22.7 pg (26.0-34.0); MCHC 26.6 g/dL (31.0-37.0); MCV 85.2 fL (80.0-100.0); MEAN PLATELET VOLUME 9.3 fL (7.4-10.4); MONOCYTES 2.1 % (2-11); NEUTROPHIL ABS# 8.54 10x3/uL (1.56-6.13); NEUTROPHILS 85.7 % (40-80); PLATELET COUNT 353 10x3/uL (130-400); RBC 5.12 10x6/uL (4.00-5.40); RDW 20.2 % (11.5-14.5)
[2021-01-27 06:41] LABS: ALBUMIN 3.1 g/dL (3.4-5.0); ALKALINE PHOSPHATASE 121 U/L (30-120); ALT (SGPT) 56 U/L (10-68); BILIRUBIN - TOTAL 0.73 mg/dL (0.2-1.3); C-REACTIVE PROTEIN 2.1 mg/dL (0.0-0.9); CALCIUM 8.4 mg/dL (8.5-10.1); CHLORIDE - SERUM 97 mmol/L (98-107); CREATININE - SERUM 0.8 mg/dL (0.6-1.3); FERRITIN 14 ng/mL (3-244); LDH 248 U/L (81-234); MAGNESIUM - SERUM 1.7 mg/dL (1.8-2.4); PHOSPHOROUS 4.6 mg/dL (2.5-4.9); PRO BNP 1099 pg/mL (0-125); PROTEIN - SERUM 7.4 g/dL (6.4-8.2); SODIUM 141 mmol/L (136-145); UREA NITROGEN 8 mg/dL (7-18); eGFR NON AFRICAN AMERICAN 78 mL/min (90-120)
[2021-01-27 06:53] LABS: CALC OSMOLALITY 283 mosm/kg (275-300); GLUCOSE 181 mg/dL (74-106); POTASSIUM - SERUM 3.9 mmol/L (3.5-5.1)
[2021-01-27 06:58] LABS: CARBON DIOXIDE 44.1 mmol/L (21.0-32.0)
--- NOTE | 2021-01-27 07:05 | NUR ---
PT LYING IN BED. RESP EVEN AND UNLABORED. AAOX4. O2 VIA NC AT 3 LPM INTACT. PT DENIES NEEDS AT THIS TIME. CLIR. BED IN LOWEST POSITION. SIDE RAILS X2
[2021-01-27 07:10] LABS: ERYTHROCYTE SEDIMENTATION RATE 17 mm/hr (0-30)
[2021-01-27 11:53] VITALS: BP 141/67
[2021-01-27 13:16] VITALS: Ht 160 cm; Wt 136.1 kg
--- NOTE | 2021-01-27 14:10 | NUR ---
I have reviewed this patient and I concur with the Shift Assessment completed by the Licensed Practical Nurse today this shift.
[2021-01-27 15:42] VITALS: BP 117/50
[2021-01-27 20:54] VITALS: BP 122/50
[2021-01-28 01:56] VITALS: BP 120/49
--- NOTE | 2021-01-28 02:22 | NUR ---
PT C/O "IV FALLING OUT WHILE ASLEEP." NO S/S OF BLEEDING TO LEFT AC, TIP INTACT. NEW PIV TO RIGHT FA, 22 GAUGE, X1 ATTEMPT, PT TOLERATED WELL.
[2021-01-28] MEDS ORDERED: PRAVACHOL40 MG PO (03:31)
[2021-01-28 06:43] VITALS: BP 101/38
[2021-01-28 07:42] LABS: BASOPHILS 0 % (0-2); EOSINOPHILS 0 % (0-7); HEMATOCRIT 40.7 % (36.0-48.0); HEMOGLOBIN 10.8 g/dL (12-16); IMMATURE GRANULOCYTES 0.5 % (0-5); LYMPHOCYTE ABS# 0.78 10x3/uL (1.18-3.74); LYMPHOCYTES 7.8 % (15-50); MCH 22.8 pg (26.0-34.0); MCHC 26.5 g/dL (31.0-37.0); MCV 85.9 fL (80.0-100.0); MEAN PLATELET VOLUME 9.4 fL (7.4-10.4); MONOCYTES 3.1 % (2-11); NEUTROPHIL ABS# 8.84 10x3/uL (1.56-6.13); NEUTROPHILS 88.6 % (40-80); PLATELET COUNT 293 10x3/uL (130-400); RBC 4.74 10x6/uL (4.00-5.40)
[2021-01-28 07:59] LABS: ALKALINE PHOSPHATASE 118 U/L (30-120); ALT (SGPT) 46 U/L (10-68); BILIRUBIN - TOTAL 0.39 mg/dL (0.2-1.3); CALC OSMOLALITY 280 mosm/kg (275-300); CALCIUM 8.6 mg/dL (8.5-10.1); CHLORIDE - SERUM 98 mmol/L (98-107); CREATININE - SERUM 0.7 mg/dL (0.6-1.3); GLUCOSE 149 mg/dL (74-106); MAGNESIUM - SERUM 1.9 mg/dL (1.8-2.4); POTASSIUM - SERUM 4.3 mmol/L (3.5-5.1); PROTEIN - SERUM 7.1 g/dL (6.4-8.2); SODIUM 140 mmol/L (136-145); UREA NITROGEN 9 mg/dL (7-18); eGFR NON AFRICAN AMERICAN > 90 mL/min (90-120)
[2021-01-28 08:04] LABS: CARBON DIOXIDE 44.4 mmol/L (21.0-32.0)
[2021-01-28 08:46] VITALS: BP 110/47
--- NOTE | 2021-01-28 11:09 | NUR ---
BLOOD SUGAR OF 259, 10UNITS OF INSULIN GIVEN PER S/S. PT RESTING COMFORTABLY IN BED, DENIES ANY NEEDS AT THIS TIME, CALL LIGHT IN REACH, WILL.
[2021-01-28 12:18] VITALS: BP 127/62
--- NOTE | 2021-01-28 16:26 | NUR ---
BLOOD SUGAR OF 203, 4UNITS GIVEN PER S/S. PT UP TO SIDE OF BED, DENIES ANY NEEDS AT THIS TIME. ALL NEEDS MET, CALL LIGHT IN REACH.
[2021-01-28 16:49] VITALS: BP 120/47
[2021-01-28 18:46] LABS: BILIRUBIN NEGATIVE (NEGATIVE); KETONE NEGATIVE (NEGATIVE); NITRITE NEGATIVE (NEGATIVE); UROBILINOGEN NORMAL mg/dL (< 2)
[2021-01-28 21:38] VITALS: BP 126/44
--- NOTE | 2021-01-29 01:27 | NUR ---
PATIENT WAS NOT WEARING BIPAP. NO DISTRESS NNOTED AT THIS TIME.
[2021-01-29 04:09] VITALS: BP 119/60
[2021-01-29 04:57] LABS: BASOPHILS 0 % (0-2); EOSINOPHILS 0 % (0-7); HEMATOCRIT 38.6 % (36.0-48.0); HEMOGLOBIN 10.2 g/dL (12-16); IMMATURE GRANULOCYTES 0.3 % (0-5); LYMPHOCYTE ABS# 1.04 10x3/uL (1.18-3.74); LYMPHOCYTES 8.5 % (15-50); MCH 22.5 pg (26.0-34.0); MCHC 26.4 g/dL (31.0-37.0); MCV 85.2 fL (80.0-100.0); MEAN PLATELET VOLUME 9.4 fL (7.4-10.4); MONOCYTES 7.4 % (2-11); NEUTROPHILS 83.8 % (40-80); PLATELET COUNT 292 10x3/uL (130-400); RBC 4.53 10x6/uL (4.00-5.40); RDW 20.3 % (11.5-14.5); WBC 12.3 10x3/uL (4.8-10.8)
[2021-01-29 05:26] LABS: ALBUMIN 2.9 g/dL (3.4-5.0); ANION GAP 2.2 mmol/L (8-16); BILIRUBIN - TOTAL 0.41 mg/dL (0.2-1.3); CALCIUM 8.5 mg/dL (8.5-10.1); CREATININE - SERUM 0.9 mg/dL (0.6-1.3); MAGNESIUM - SERUM 1.8 mg/dL (1.8-2.4); PHOSPHOROUS 3.3 mg/dL (2.5-4.9); PROTEIN - SERUM 6.5 g/dL (6.4-8.2)
[2021-01-29 05:27] LABS: CARBON DIOXIDE 43.8 mmol/L (21.0-32.0)
[2021-01-29 09:00] VITALS: BP 151/85
[2021-01-29 10:03] VITALS: BP 151/85
[2021-01-29 13:17] VITALS: BP 133/76
--- NOTE | 2021-01-29 16:25 | EC ---
PATIENT:DERIC CARBALLO DATE OF SERVICE: 01/26/21 SEX: F MEDICAL RECORD: [id number] DATE OF : 63 LOCATION:D. D.212 AGE OF PATIENT: 55 ADMISSION DATE: 01/26/21 REFERRING PHYSICIAN: INTERPRETING PHYSICIAN: NATANAEL MATIAS MD ECHOCARDIOGRAM REPORT ECHO CHARGES 4 ECHO COMPLETE Date: 01/28/21 CLINICAL DIAGNOSIS: SOB ECHOCARDIOGRAPHIC MEASUREMENTS (adult normal given) AC root (d.<3.7cm) 3.6 cm LV Septum d (<1.2 cm> 4.2 cm Valve Excursion cm LV Septum (systole) 4.0 cm Left Atria (s.<4.0cm> 5.5 cm LVPW d(<1.2cm) 1.8 cm RV (d.<2.3cm) 4.3 cm LVPW (sytole) 2.6 cm LV diastole(<5.6CM) 6.0 cm MV E-F(>70mm/sec) cm LV systole 4.5 cm LVOT Diameter 2.4 cm MV exc.(>10mm) cm Est.ejection fraction (50-75%) 55 % DOPPLER: LVIT cm/sec A 78 cm/sec E 126 cm/sec LA cm/sec RVSP 37 mmHg LVOT 142 cm/sec AOP1/2T m/s Asc. Ao 176 cm/sec RVOT cm/sec RA 5.3 cm/sec PA cm/sec AV Gradient Peak 12 mmHg AV Mean 6 mmHg AV Area 3.9 cm MV Gradient Peak 9 mmHg MV Mean 3 mmHg MV Area cm COMMENTS: Medical Assisting Instructor: 3 LUDMILA MAK Compliance Monitor: 5 Dr. Matias TAPE# Pericardial Effusion N DATE OF SERVICE: CLINICAL INDICATION: Shortness of breath. INTERPRETATION: Technically difficult limited study, overall normal left ventricular chamber size and contractile function. Ejection fraction 55%. FINDINGS: Left atrial chamber appears normal. Right atrium and right ventricular chamber is not well visualized, but appeared normal. Aortic valve not well visualized. Mitral valve appears normal. Trace mitral regurgitation. ECHOCARDIOGRAM REPORT [id number] DERIC CARBALLO Tricuspid valve not well visualized. Trivial tricuspid regurgitation. Pulmonic valve is not well visualized. No pulmonary regurgitation noted. No pericardial effusion visualized. IMPRESSION: Technically difficult limited study, overall normal left ventricular chamber size and contractile function, ejection fraction of 55%. TRANSINT:[id number] Voice Confirmation ID: [id number] DOCUMENT ID: [id number] NATANAEL MATIAS MD at 1625 CC: [id number] DICTATION DATE: 01/29/2139 PSYCH RN: 01/29/21 1055 ADM IN [facility] [place] [address] [place] [address]
[2021-01-29 20:48] VITALS: BP 111/58
[2021-01-30 03:59] VITALS: BP 112/67
[2021-01-30 08:29] VITALS: BP 109/70
[2021-01-30 09:23] LABS: BASOPHILS 0.1 % (0-2); EOSINOPHILS 0 % (0-7); HEMATOCRIT 42.3 % (36.0-48.0); HEMOGLOBIN 11.2 g/dL (12-16); IMMATURE GRANULOCYTES 0.4 % (0-5); LYMPHOCYTE ABS# 1.46 10x3/uL (1.18-3.74); LYMPHOCYTES 11.5 % (15-50); MCH 22.6 pg (26.0-34.0); MCHC 26.5 g/dL (31.0-37.0); MCV 85.5 fL (80.0-100.0); MEAN PLATELET VOLUME 9.6 fL (7.4-10.4); MONOCYTES 10.4 % (2-11); NEUTROPHIL ABS# 9.88 10x3/uL (1.56-6.13); NEUTROPHILS 77.6 % (40-80); PLATELET COUNT 326 10x3/uL (130-400); RBC 4.95 10x6/uL (4.00-5.40); RDW 19.9 % (11.5-14.5); WBC 12.7 10x3/uL (4.8-10.8)
[2021-01-30 09:36] LABS: ALKALINE PHOSPHATASE 111 U/L (30-120); BILIRUBIN - TOTAL 0.44 mg/dL (0.2-1.3); CALC OSMOLALITY 280 mosm/kg (275-300); CALCIUM 8.7 mg/dL (8.5-10.1); CHLORIDE - SERUM 93 mmol/L (98-107); CREATININE - SERUM 0.7 mg/dL (0.6-1.3); GLUCOSE 131 mg/dL (74-106); MAGNESIUM - SERUM 1.7 mg/dL (1.8-2.4); PHOSPHOROUS 3.2 mg/dL (2.5-4.9); POTASSIUM - SERUM 4.1 mmol/L (3.5-5.1); PROTEIN - SERUM 6.9 g/dL (6.4-8.2); SODIUM 139 mmol/L (136-145); UREA NITROGEN 16 mg/dL (7-18); eGFR NON AFRICAN AMERICAN > 90 mL/min (90-120)
[2021-01-30 09:40] LABS: ALT (SGPT) 50 U/L (10-68)
[2021-01-30 12:41] VITALS: BP 98/67
[2021-01-30 17:35] VITALS: BP 118/56
[2021-01-30 20:00] VITALS: BP 119/52
[2021-01-31 05:49] LABS: BASOPHILS 0 % (0-2); EOSINOPHILS 0.3 % (0-7); HEMATOCRIT 42.2 % (36.0-48.0); HEMOGLOBIN 11.4 g/dL (12-16); IMMATURE GRANULOCYTES 0.4 % (0-5); LYMPHOCYTE ABS# 2.45 10x3/uL (1.18-3.74); LYMPHOCYTES 17.7 % (15-50); MCH 22.6 pg (26.0-34.0); MCV 83.7 fL (80.0-100.0); MEAN PLATELET VOLUME 9.3 fL (7.4-10.4); MONOCYTES 10.5 % (2-11); NEUTROPHIL ABS# 9.82 10x3/uL (1.56-6.13); NEUTROPHILS 71.1 % (40-80); PLATELET COUNT 306 10x3/uL (130-400); RBC 5.04 10x6/uL (4.00-5.40); WBC 13.8 10x3/uL (4.8-10.8)
[2021-01-31 06:23] LABS: ALBUMIN 2.9 g/dL (3.4-5.0); ALKALINE PHOSPHATASE 118 U/L (30-120); ALT (SGPT) 47 U/L (10-68); CALC OSMOLALITY 278 mosm/kg (275-300); CALCIUM 8.7 mg/dL (8.5-10.1); CHLORIDE - SERUM 97 mmol/L (98-107); CREATININE - SERUM 0.7 mg/dL (0.6-1.3); GLUCOSE 99 mg/dL (74-106); MAGNESIUM - SERUM 1.8 mg/dL (1.8-2.4); PHOSPHOROUS 3.4 mg/dL (2.5-4.9); POTASSIUM - SERUM 3.9 mmol/L (3.5-5.1); PROTEIN - SERUM 6.5 g/dL (6.4-8.2); SODIUM 139 mmol/L (136-145); UREA NITROGEN 16 mg/dL (7-18); eGFR NON AFRICAN AMERICAN > 90 mL/min (90-120)
[2021-01-31 06:28] LABS: CARBON DIOXIDE 40.2 mmol/L (21.0-32.0)
[2021-01-31 08:19] VITALS: BP 110/55
--- NOTE | 2021-01-31 09:47 | NUR ---
PT RECEIVED SITTING ON SIDE OF BED AWAKE AND ALERT. STATES WAITING ON DR GRIGSBY TO SEE IF SHE CAN GO HOME. MEDS GIVEN, BREAKFAST AT BEDSIDE. 4LNC WHICH IS BASELINE HOME USE. STATES DID NOT WEAR BIPAP LAST NIGHT.
--- NOTE | 2021-01-31 11:13 | MORECARE ---
CASE MANAGEMENT DISCHARGE SUMMARY PATIENT: DERIC CARBALLO UNIT: [id number] ADM DATE: 01/26/21 AGE: 55 : 63 SEX: F ROOM/BED: D.3333 AUTHOR: CONSTANTIN,DOC PHYSICIAN: REFERRING PHYSICIAN: SHELL NAJERA MD DATE OF SERVICE: 01/31/21 Case Management Discharge Planning Summary COMMENTS ENTERED DATE: 01/31/21 11:02 CT COMMENT TYPE: Discharge Planning REVIEWER: Antonina Mosher CM met with patient to assess discharge plan needs. Patient states she lives at home with her daughter and daughter's two teenage children. She is currently on 2L O2 via NC which is her baseline O2 need. She would like to resume her home O2 services with [facility]. She states she is independent with ADLs and uses a walker for ambulation. CM discussed the availability of home health services including home medical equipment should that be needed. Patient declined HHS, SNF, IPR, and DME services at this time and is satisfied with DC plan. She states she has reliable transportation to and from medical appointments. Her daughter, Clara Carballo ([phone]) will provide transportation when patient is discharged. Clara will bring patient's portable O2 for transport. CM will continue to follow and assist as needed DCP REVIEW SUMMARY ANTICIPATED D/C DATE: 01/31/2021 EXPECTED LOS : 5 CASE STATUS: DCP Initiated INITIAL REVIEW: 01/31/2021 INITIAL REVIEWER: Antonina Mosher FINAL DISCHARGE DISPOSITION: 01 : Home or Self Care (Routine Discharge) FINAL REVIEWER: FINAL REVIEW DATE: DCP Focus Questions & Answers QUESTION: ANSWER : PATIENT: DERIC CARBALLO ENCOUNTER: [id number] MEDICAL RECORD#: [id number] ADMISSION DATE: 01/26/2021 DISCHARGE DATE: ATTENDING MD: SHELL RUSS : AGE: 55 MARITAL STATUS: M DC PLAN ID: [id number] FACILITY: [facility] PRINTED ON: 01/31/21 11:13 CT All edits/amendments must be made on the electronic document DICTATION DATE: 01/31/21 111 AIRBORNE SENSOR SPECIALIST: LAVON 01/31/21 1113 RPT#: [id number] DC DATE: STATUS: ADM IN [facility] [address] [place] [address] END OF REPORT
--- NOTE | 2021-01-31 11:24 | MORECARE ---
CASE MANAGEMENT DISCHARGE SUMMARY PATIENT: DERIC CARBALLO UNIT: [id number] ADM DATE: 01/26/21 AGE: 55 : 63 SEX: F ROOM/BED: D.6283 AUTHOR: CONSTANTINDOC PHYSICIAN: REFERRING PHYSICIAN: SHELL NAJERA MD DATE OF SERVICE: 01/31/21 Case Management Discharge Planning Summary COMMENTS ENTERED DATE: 01/31/21 11:02 CT COMMENT TYPE: Discharge Planning REVIEWER: Antonina Mosher CM met with patient to assess discharge plan needs. Patient states she lives at home with her daughter and daughter's two teenage children. She is currently on 2L O2 via NC which is her baseline O2 need. She would like to resume her home O2 services with [facility]. She states she is independent with ADLs and uses a walker for ambulation. CM discussed the availability of home health services including home medical equipment should that be needed. Patient declined HHS, SNF, IPR, and DME services at this time and is satisfied with DC plan. She states she has reliable transportation to and from medical appointments. Her daughter, Clara Carballo ([phone]) will provide transportation when patient is discharged. Clara will bring patient's portable O2 for transport. CM will continue to follow and assist as needed DCP REVIEW SUMMARY ANTICIPATED D/C DATE: 01/31/2021 EXPECTED LOS : 5 CASE STATUS: DCP Initiated INITIAL REVIEW: 01/31/2021 INITIAL REVIEWER: Antonina Mosher FINAL DISCHARGE DISPOSITION: 01 : Home or Self Care (Routine Discharge) FINAL REVIEWER: FINAL REVIEW DATE: DCP Focus Questions & Answers DCP Screen QUESTION: ANSWER High Risk Factors: : None Walking limitation: Patient stated self rated walking limitation present? : Yes Age: : 44 - 63 Prior living environment: : Lives with others Disability ranking: : Grade 2: Slight disability DCP Evaluation QUESTION: ANSWER Patient and/or caregiver agree upon recommended discharge plan? : Yes Family / Caregiver's ability to cope with chronic illness: : a. Adequate (ability to meet patient's medical needs, ensures patient attends medical appts.) Patient's current cognitive status: : Alert Patient's current cognitive status: : *Oriented to person, place, situation, time and present Patient's ability to cope with chronic illness : d. No chronic illness Patient gives permission to discuss discharge plans with: (name, relationship and number) : Clara Carballo (Daughter) [phone] Functional screen assessment: : Basic needs can adequately be met by self Family / Caregiver's ability to cope with chronic illness: : a. Adequate (ability to meet patient's medical needs, ensures patient attends medical appts.) Physical Status: : Independent with ADL's Is there a likelihood that the patient will require additional services to return to the preadmission environment? : No Living Arrangements: : Home with others Results of this evaluation have been discussed with: : Patient Patient with capacity for self-care or can be cared for in same environment as prior to hospitalization? : Yes Living arrangements comments: : Lives with daughter, Clara Carballo Baseline cognitive status: : Alert Baseline cognitive status: : *Oriented to person, place, situation, time and present Physical environment modification needed / anticipated for discharge: : N/A Medication Management: : Patient states can afford medications Planned post hospital services available for patient? : N/A Pharmacy name(s): : [facility] in [place] Planned post hospital services covered by insurance plan? : N/A Does Patient have transportation to get home and to follow-up medical appointments when discharged from the hospital? : Yes Would patient like to participate in any Care Coordination programs (if applicable): : Not applicable Does the patient have electricity at home? : Yes Does the patient have running water in their house? : Yes Equipment in use: : Walker - Standard Equipment in use: : Shower Chair Mental health screen: : No mental health history DCP Re-evaluation QUESTION: ANSWER Would patient like to participate in any Care Coordination programs (if applicable): : Not applicable PATIENT: DERIC CARBALLO ENCOUNTER: [id number] MEDICAL RECORD#: [id number] ADMISSION DATE: 01/26/2021 DISCHARGE DATE: ATTENDING MD: SHELL RUSS : AGE: 55 MARITAL STATUS: M DC PLAN ID: [id number] FACILITY: [facility] PRINTED ON: 01/31/21 11:24 CT All edits/amendments must be made on the electronic document DICTATION DATE: 01/31/21 112 SLOT SERVICE SPECIALIST: LAVON 01/31/21 1124 RPT#: [id number] DC DATE: STATUS: ADM IN [facility] [address] [place] [address] END OF REPORT
[2021-01-31] MEDS ORDERED: PREDNISONE10 MG PO (11:38)
[2021-01-31] MEDS ORDERED: ADOXA100 MG PO (11:42)
--- NOTE | 2021-01-31 12:08 | MORECARE ---
CASE MANAGEMENT DISCHARGE SUMMARY PATIENT: DERIC CARBALLO UNIT: [id number] ADM DATE: 01/26/21 AGE: 55 : 63 SEX: F ROOM/BED: D.2508 AUTHOR: CONSTANTINDOC PHYSICIAN: REFERRING PHYSICIAN: SHELL NAJERA MD DATE OF SERVICE: 01/31/21 Case Management Discharge Planning Summary COMMENTS ENTERED DATE: 01/31/21 11:02 CT COMMENT TYPE: Discharge Planning REVIEWER: Antonina Mosher CM met with patient to assess discharge plan needs. Patient states she lives at home with her daughter and daughter's two teenage children. She is currently on 2L O2 via NC which is her baseline O2 need. She would like to resume her home O2 services with [facility]. She states she is independent with ADLs and uses a walker for ambulation. CM discussed the availability of home health services including home medical equipment should that be needed. Patient declined HHS, SNF, IPR, and DME services at this time and is satisfied with DC plan. She states she has reliable transportation to and from medical appointments. Her daughter, Clara Carballo ([phone]) will provide transportation when patient is discharged. Clara will bring patient's portable O2 for transport. CM will continue to follow and assist as needed DCP REVIEW SUMMARY ANTICIPATED D/C DATE: 01/31/2021 EXPECTED LOS : 5 CASE STATUS: DCP Initiated INITIAL REVIEW: 01/31/2021 INITIAL REVIEWER: Antonina Mosher FINAL DISCHARGE DISPOSITION: 01 : Home or Self Care (Routine Discharge) FINAL REVIEWER: FINAL REVIEW DATE: DCP Focus Questions & Answers DCP Screen QUESTION: ANSWER High Risk Factors: : None Walking limitation: Patient stated self rated walking limitation present? : Yes Age: : 44 - 63 Prior living environment: : Lives with others Disability ranking: : Grade 2: Slight disability DCP Evaluation QUESTION: ANSWER Patient and/or caregiver agree upon recommended discharge plan? : Yes Family / Caregiver's ability to cope with chronic illness: : a. Adequate (ability to meet patient's medical needs, ensures patient attends medical appts.) Patient's current cognitive status: : Alert Patient's current cognitive status: : *Oriented to person, place, situation, time and present Patient's ability to cope with chronic illness : d. No chronic illness Patient gives permission to discuss discharge plans with: (name, relationship and number) : Clara Craballo (Daughter) [phone] Functional screen assessment: : Basic needs can adequately be met by self Family / Caregiver's ability to cope with chronic illness: : a. Adequate (ability to meet patient's medical needs, ensures patient attends medical appts.) Physical Status: : Independent with ADL's Is there a likelihood that the patient will require additional services to return to the preadmission environment? : No Living Arrangements: : Home with others Results of this evaluation have been discussed with: : Patient Patient with capacity for self-care or can be cared for in same environment as prior to hospitalization? : Yes Living arrangements comments: : Lives with daughter, Clara Carballo Baseline cognitive status: : Alert Baseline cognitive status: : *Oriented to person, place, situation, time and present Physical environment modification needed / anticipated for discharge: : N/A Medication Management: : Patient states can afford medications Planned post hospital services available for patient? : N/A Pharmacy name(s): : [facility] in [place] Planned post hospital services covered by insurance plan? : N/A Does Patient have transportation to get home and to follow-up medical appointments when discharged from the hospital? : Yes Would patient like to participate in any Care Coordination programs (if applicable): : Not applicable Does the patient have electricity at home? : Yes Does the patient have running water in their house? : Yes Equipment in use: : Walker - Standard Equipment in use: : Shower Chair Mental health screen: : No mental health history DCP Re-evaluation QUESTION: ANSWER Would patient like to participate in any Care Coordination programs (if applicable): : Not applicable PATIENT: DERIC CARBALLO ENCOUNTER: [id number] MEDICAL RECORD#: [id number] ADMISSION DATE: 01/26/2021 DISCHARGE DATE: ATTENDING MD: SHELL RUSS : AGE: 55 MARITAL STATUS: M DC PLAN ID: [id number] FACILITY: [facility] PRINTED ON: 01/31/21 12:07 CT All edits/amendments must be made on the electronic document DICTATION DATE: 01/31/211206 WOOD MILLING MACHINE HAND: LAVON 01/31/211206 RPT#: [id number] DC DATE: STATUS: ADM IN [facility] [address] [place] [address] END OF REPORT
--- NOTE | 2021-01-31 13:22 | NUR ---
PT'S DISCHARGE INSTRUCTIONS REVIEWED AND SIGNED, IV OUT. FAMILY PICKING UP IN ER. PT WITH HOME OXYGEN ALREADY.
--- NOTE | 2021-01-31 17:15 | MORECARE ---
CASE MANAGEMENT DISCHARGE SUMMARY PATIENT: DERIC CARBALLO UNIT: [id number] ADM DATE: 01/26/21 AGE: 55 : 63 SEX: F ROOM/BED: D.1963 AUTHOR: CONSTANTINDOC PHYSICIAN: REFERRING PHYSICIAN: SHELL NAJERA MD DATE OF SERVICE: 01/31/21 Case Management Discharge Planning Summary COMMENTS ENTERED DATE: 01/31/21 11:02 CT COMMENT TYPE: Discharge Planning REVIEWER: Antonina Mosher CM met with patient to assess discharge plan needs. Patient states she lives at home with her daughter and daughter's two teenage children. She is currently on 2L O2 via NC which is her baseline O2 need. She would like to resume her home O2 services with [facility]. She states she is independent with ADLs and uses a walker for ambulation. CM discussed the availability of home health services including home medical equipment should that be needed. Patient declined HHS, SNF, IPR, and DME services at this time and is satisfied with DC plan. She states she has reliable transportation to and from medical appointments. Her daughter, Clara Carballo ([phone]) will provide transportation when patient is discharged. Clara will bring patient's portable O2 for transport. CM will continue to follow and assist as needed DCP REVIEW SUMMARY ANTICIPATED D/C DATE: 01/31/2021 EXPECTED LOS : 5 CASE STATUS: DCP Complete INITIAL REVIEW: 01/31/2021 INITIAL REVIEWER: Antonina Mosher FINAL DISCHARGE DISPOSITION: 01 : Home or Self Care (Routine Discharge) FINAL REVIEWER: FINAL REVIEW DATE: DCP Focus Questions & Answers DCP Screen QUESTION: ANSWER High Risk Factors: : None Walking limitation: Patient stated self rated walking limitation present? : Yes Age: : 44 - 63 Prior living environment: : Lives with others Disability ranking: : Grade 2: Slight disability DCP Evaluation QUESTION: ANSWER Patient and/or caregiver agree upon recommended discharge plan? : Yes Family / Caregiver's ability to cope with chronic illness: : a. Adequate (ability to meet patient's medical needs, ensures patient attends medical appts.) Patient's current cognitive status: : Alert Patient's current cognitive status: : *Oriented to person, place, situation, time and present Patient's ability to cope with chronic illness : d. No chronic illness Patient gives permission to discuss discharge plans with: (name, relationship and number) : Clara Carballo (Daughter) [phone] Functional screen assessment: : Basic needs can adequately be met by self Family / Caregiver's ability to cope with chronic illness: : a. Adequate (ability to meet patient's medical needs, ensures patient attends medical appts.) Physical Status: : Independent with ADL's Is there a likelihood that the patient will require additional services to return to the preadmission environment? : No Living Arrangements: : Home with others Results of this evaluation have been discussed with: : Patient Patient with capacity for self-care or can be cared for in same environment as prior to hospitalization? : Yes Living arrangements comments: : Lives with daughter, Clara Carballo Baseline cognitive status: : Alert Baseline cognitive status: : *Oriented to person, place, situation, time and present Physical environment modification needed / anticipated for discharge: : N/A Medication Management: : Patient states can afford medications Planned post hospital services available for patient? : N/A Pharmacy name(s): : [facility] in [place] Planned post hospital services covered by insurance plan? : N/A Does Patient have transportation to get home and to follow-up medical appointments when discharged from the hospital? : Yes Would patient like to participate in any Care Coordination programs (if applicable): : Not applicable Does the patient have electricity at home? : Yes Does the patient have running water in their house? : Yes Equipment in use: : Walker - Standard Equipment in use: : Shower Chair Mental health screen: : No mental health history DCP Re-evaluation QUESTION: ANSWER Would patient like to participate in any Care Coordination programs (if applicable): : Not applicable PATIENT: DERIC CARBALLO ENCOUNTER: [id number] MEDICAL RECORD#: [id number] ADMISSION DATE: 01/26/2021 DISCHARGE DATE: 01/31/2021 ATTENDING MD: SHELL RUSS : AGE: 55 MARITAL STATUS: M DC PLAN ID: [id number] FACILITY: [facility] PRINTED ON: 01/31/21 17:15 CT All edits/amendments must be made on the electronic document DICTATION DATE: 01/31/211714 TRAY PACKER: LAVON 01/31/211714 RPT#: [id number] DC DATE:01/31/21 STATUS: DIS IN [facility] [address] [facility] [address] END OF REPORT
--- NOTE | 2021-01-31 18:36 | NUR ---
PT CALLED ASKING IF WE HAD FOUND HER BAG OF MEDS CAUSE SHE DID NOT MAKE IT HOME WITH THEM. ROOM HAS BEEN CLEANED AND NOTHING WAS TURNED IN. CHECKED IN ROOM AND LOOKED ANYWAY BUT NOTHING FOUND. CALL PLACED TO PHARMACY IN CASE LOCKED UP THERE BUT STATES NOTHING IN [place]AFE. CALLED PT BACK AND STATED WE WOULD KEEP LOOKING BUT SHE MAY NEED TO CALL IN MORNING FOR NURSE MGR OR ADMIN. NOTHING MENTIONED ON ADMISSION ASSESSMENT REGARDING MEDS.
--- NOTE | 2021-02-01 11:16 | NUR ---
PATIENT TO CALL AGAIN X 2 THIS AM FOR MEDS. WE HAVE CALLED PHARMACY AND THE ER TO SEE IF THERE IS ANYTHING. NOTHING. I CALLED SOFIE DA SILVA IN [place] TO LET HER KNOW THIS. WE WILL CONTINUE TO LOOK.
== END 2021-01-31 13:23 | disposition home or self-care (01) | DRG 291 ==
LOC: D.ER 18:44 → D.MS 20:54 → D.M2 20:54
PROVIDERS: Emergency Medicine; Family Medicine; ADMIT Family Medicine; ATTEND Family Medicine
PROC: 5A09357 Assistance with Respiratory Ventilation, Less than 24 Consecutive Hours, Continuous Positive Airway Pressure (ICD-10-PCS; principal; 2021-01-27)
DX: I11.0 Hypertensive heart disease with heart failure (principal); J96.22 Acute and chronic respiratory failure with hypercapnia; J96.21 Acute and chronic respiratory failure with hypoxia; J18.9 Pneumonia, unspecified organism; J44.1 Chronic obstructive pulmonary disease with (acute) exacerbation; J45.901 Unspecified asthma with (acute) exacerbation; J44.0 Chronic obstructive pulmonary disease with (acute) lower respiratory infection; Z68.43 Body mass index [BMI] 50.0-59.9, adult; I50.33 Acute on chronic diastolic (congestive) heart failure; I48.0 Paroxysmal atrial fibrillation; G47.33 Obstructive sleep apnea (adult) (pediatric); G89.29 Other chronic pain; M54.9 Dorsalgia, unspecified; F41.8 Other specified anxiety disorders; E78.5 Hyperlipidemia, unspecified; E11.9 Type 2 diabetes mellitus without complications; E66.01 Morbid (severe) obesity due to excess calories; K21.9 Gastro-esophageal reflux disease without esophagitis; F17.200 Nicotine dependence, unspecified, uncomplicated; R91.8 Other nonspecific abnormal finding of lung field; E87.6 Hypokalemia; G25.81 Restless legs syndrome

== ENCOUNTER 2021-02-12 21:15 | Inpatient (IN) | payer MEDICAID ==
[~2021-02-12] VITALS: Ht 160 cm; Wt 135.3 kg
[~2021-02-12 21:15] MED LIST changes: +ADOXA100 MG PO; +PRAVACHOL40 MG PO
[2021-02-12 22:18] LABS: BASOPHILS 0.2 % (0-2); EOSINOPHILS 2.4 % (0-7); HEMOGLOBIN 11.7 g/dL (12-16); IMMATURE GRANULOCYTES 0.6 % (0-5); LYMPHOCYTE ABS# 2.44 10x3/uL (1.18-3.74); MCH 23.1 pg (26.0-34.0); MCHC 27.2 g/dL (31.0-37.0); MCV 84.8 fL (80.0-100.0); MEAN PLATELET VOLUME 9.1 fL (7.4-10.4); MONOCYTES 6.4 % (2-11); NEUTROPHIL ABS# 7.58 10x3/uL (1.56-6.13); NEUTROPHILS 68.4 % (40-80); PLATELET COUNT 320 10x3/uL (130-400); RBC 5.07 10x6/uL (4.00-5.40); RDW 20.8 % (11.5-14.5); WBC 11.1 10x3/uL (4.8-10.8)
--- NOTE | 2021-02-12 22:23 | NUR ---
GRANDDAUGHTER WITH PATIENT REPORTS PT HAS BEEN WEAK AND LETHARGIC FOR 2 WEEKS NOW. PT SOMETIMES WEARS CPAP AT HOME AND IS ALWAYS ON 02. PT PRESENTS LETHARGIC BUT ABLE TO RESPOND TO VOICE. RT IN ROOM FOR ABG.
[2021-02-12 22:32] LABS: ANION GAP 3.8 mmol/L (8-16); CALCIUM 8.5 mg/dL (8.5-10.1); CARBON DIOXIDE 37.1 mmol/L (21.0-32.0); CREATININE - SERUM 0.9 mg/dL (0.6-1.3); POTASSIUM - SERUM 3.9 mmol/L (3.5-5.1)
[2021-02-12 22:37] LABS: ALBUMIN 3.1 g/dL (3.4-5.0); BILIRUBIN - TOTAL 0.56 mg/dL (0.2-1.3); MAGNESIUM - SERUM 1.7 mg/dL (1.8-2.4)
--- NOTE | 2021-02-12 22:40 | NUR ---
KOMAL TO LAB
[2021-02-12 22:47] LABS: BILIRUBIN NEGATIVE (NEGATIVE); KETONE NEGATIVE (NEGATIVE); NITRITE NEGATIVE (NEGATIVE); UROBILINOGEN NORMAL mg/dL (< 2)
[2021-02-12 23:03] LABS: UDS - AMPHET NEGATIVE QUAL (NEGATIVE); UDS - BARB NEGATIVE QUAL (NEGATIVE); UDS - BENZO NEGATIVE QUAL (NEGATIVE); UDS - COCAINE NEGATIVE QUAL (NEGATIVE); UDS - OPIATE POSITIVE QUAL (NEGATIVE); UDS - PCP NEGATIVE QUAL (NEGATIVE); UDS - THC POSITIVE QUAL (NEGATIVE)
[2021-02-13] VITALS (14 sets, daily range): BP systolic 92–139; BP diastolic 41–87; Ht 160 cm; Wt 135.3 kg
--- NOTE | 2021-02-13 02:42 | NUR ---
GRANDDAUGHTER CONTACT INFORMATION JARON HARIS [phone].
--- NOTE | 2021-02-13 03:00 | NUR ---
RECIEVED REPORT FROM CARLOS TSAI. ASSUMED CARE OF PT.
[2021-02-13 08:21] LABS: BASOPHILS 0.1 % (0-2); EOSINOPHILS 3.3 % (0-7); HEMATOCRIT 42.2 % (36.0-48.0); HEMOGLOBIN 11.3 g/dL (12-16); IMMATURE GRANULOCYTES 0.7 % (0-5); LYMPHOCYTE ABS# 2.04 10x3/uL (1.18-3.74); LYMPHOCYTES 26.9 % (15-50); MCH 22.8 pg (26.0-34.0); MCHC 26.8 g/dL (31.0-37.0); MCV 85.3 fL (80.0-100.0); MEAN PLATELET VOLUME 8.9 fL (7.4-10.4); MONOCYTES 9.2 % (2-11); NEUTROPHIL ABS# 4.54 10x3/uL (1.56-6.13); NEUTROPHILS 59.8 % (40-80); PLATELET COUNT 275 10x3/uL (130-400); RBC 4.95 10x6/uL (4.00-5.40); RDW 20.8 % (11.5-14.5)
[2021-02-13 08:23] LABS: WBC 7.6 10x3/uL (4.8-10.8)
[2021-02-13 08:44] LABS: APTT 27.5 SECONDS (22.8-39.4); INR 1.35 (0.85-1.17); PROTIME 15.4 SECONDS (11.6-15.0)
[2021-02-13 08:45] LABS: D-DIMER-QUANTITATIVE 0.29 ug/mLFEU (0.20-0.54)
[2021-02-13 08:49] LABS: ALBUMIN 2.8 g/dL (3.4-5.0); ALKALINE PHOSPHATASE 116 U/L (30-120); ALT (SGPT) 20 U/L (10-68); BILIRUBIN - TOTAL 0.63 mg/dL (0.2-1.3); CALC OSMOLALITY 283 mosm/kg (275-300); CALCIUM 8.6 mg/dL (8.5-10.1); CARBON DIOXIDE 37.3 mmol/L (21.0-32.0); CHLORIDE - SERUM 101 mmol/L (98-107); CREATININE - SERUM 0.7 mg/dL (0.6-1.3); GLUCOSE 127 mg/dL (74-106); MAGNESIUM - SERUM 1.9 mg/dL (1.8-2.4); PHOSPHOROUS 3.5 mg/dL (2.5-4.9); POTASSIUM - SERUM 3.8 mmol/L (3.5-5.1); PRO BNP 1010 pg/mL (0-125); PROTEIN - SERUM 6.5 g/dL (6.4-8.2); SODIUM 141 mmol/L (136-145); UREA NITROGEN 14 mg/dL (7-18); eGFR NON AFRICAN AMERICAN > 90 mL/min (90-120)
--- NOTE | 2021-02-13 11:53 | NUR ---
ON BIPAP AT 40%. VS STABLE . NO C/O PAIN OR DISCOMFORT. AWAITING ICU BED
--- NOTE | 2021-02-13 14:00 | NUR ---
REPORTED OFF TO JOCY/ICU. PT IS GOING TO ROOM 6551
--- NOTE | 2021-02-13 20:39 | NUR ---
UP TO BS COMMODE. REQUESTING CELEXA AND REQUIP. APPLIED PSYCHOLOGY CHAIR ANGLE ARROYO PAGED AND ORDERS REC'D AND PLACED. AWAITING CLEAR BY PHARMACY FOR ADMINISTERING AND PLACING BACK ON BIPAP
--- NOTE | 2021-02-13 22:29 | NUR ---
PLACED BACK ON BIPAP 40% 18/8 AT 2100
--- NOTE | 2021-02-13 23:57 | NUR ---
PT DOES NOT WANT BP TAKEN EVERY HOUR. COMPROMISING AND DOING EVERY OTHER HOUR
[2021-02-14 01:56] VITALS: BP 122/53
--- NOTE | 2021-02-14 04:01 | NUR ---
TOOK BREAK FROM BIPAP TO HAVE DIABETIC SNACK. ON 5LNC WHILE OFF BIPAP. AYDEN WELL. SAT ON SIDE OF BED TO EAT. NO SOB NOTED. WAS OFF APPROX 25MIN THEN BACK ON BIPAP. RISK COMPLIANCE ANALYST TO BS FOR AM LAB.
[2021-02-14 04:03] VITALS: BP 126/66
[2021-02-14 05:14] LABS: BASOPHILS 0.2 % (0-2); EOSINOPHILS 2.8 % (0-7); HEMOGLOBIN 10.9 g/dL (12-16); IMMATURE GRANULOCYTES 0.2 % (0-5); LYMPHOCYTE ABS# 1.78 10x3/uL (1.18-3.74); LYMPHOCYTES 27.4 % (15-50); MCH 22.8 pg (26.0-34.0); MCHC 27.3 g/dL (31.0-37.0); MCV 83.7 fL (80.0-100.0); MEAN PLATELET VOLUME 9.5 fL (7.4-10.4); MONOCYTES 8.6 % (2-11); NEUTROPHIL ABS# 3.95 10x3/uL (1.56-6.13); NEUTROPHILS 60.8 % (40-80); PLATELET COUNT 246 10x3/uL (130-400); RBC 4.78 10x6/uL (4.00-5.40); RDW 20.5 % (11.5-14.5); WBC 6.5 10x3/uL (4.8-10.8)
[2021-02-14 05:47] LABS: ALBUMIN 2.8 g/dL (3.4-5.0); ALKALINE PHOSPHATASE 113 U/L (30-120); ALT (SGPT) 21 U/L (10-68); BILIRUBIN - TOTAL 0.66 mg/dL (0.2-1.3); CALC OSMOLALITY 282 mosm/kg (275-300); CALCIUM 8.2 mg/dL (8.5-10.1); CARBON DIOXIDE 35.8 mmol/L (21.0-32.0); CHLORIDE - SERUM 101 mmol/L (98-107); CREATININE - SERUM 0.7 mg/dL (0.6-1.3); GLUCOSE 112 mg/dL (74-106); MAGNESIUM - SERUM 1.7 mg/dL (1.8-2.4); PHOSPHOROUS 2.8 mg/dL (2.5-4.9); POTASSIUM - SERUM 4.2 mmol/L (3.5-5.1); PROTEIN - SERUM 5.8 g/dL (6.4-8.2); SODIUM 142 mmol/L (136-145); eGFR NON AFRICAN AMERICAN > 90 mL/min (90-120)
[2021-02-14 05:54] LABS: UREA NITROGEN 9 mg/dL (7-18)
[2021-02-14 06:30] VITALS: BP 98/52
--- NOTE | 2021-02-14 06:32 | NUR ---
OFF BIPAP NOW AND ON NC 5L. AWAKE ALERT AND ORIENTED. WANTS A BREAK FROM BIPAP
[2021-02-14 20:23] VITALS: BP 118/41
[2021-02-15 04:30] VITALS: BP 131/54
--- NOTE | 2021-02-15 06:04 | NUR ---
I have reviewed this patient and I concur with the Shift Assessment completed by the Licensed Practical Nurse today this shift.
[2021-02-15 06:40] LABS: BASOPHILS 0.1 % (0-2); EOSINOPHILS 1.6 % (0-7); HEMATOCRIT 38.2 % (36.0-48.0); HEMOGLOBIN 10.4 g/dL (12-16); IMMATURE GRANULOCYTES 0.3 % (0-5); LYMPHOCYTE ABS# 1.95 10x3/uL (1.18-3.74); LYMPHOCYTES 25.6 % (15-50); MCH 22.7 pg (26.0-34.0); MCHC 27.2 g/dL (31.0-37.0); MCV 83.2 fL (80.0-100.0); MEAN PLATELET VOLUME 9.5 fL (7.4-10.4); MONOCYTES 9.8 % (2-11); NEUTROPHIL ABS# 4.78 10x3/uL (1.56-6.13); NEUTROPHILS 62.6 % (40-80); PLATELET COUNT 282 10x3/uL (130-400); RBC 4.59 10x6/uL (4.00-5.40); RDW 20.4 % (11.5-14.5); WBC 7.6 10x3/uL (4.8-10.8)
[2021-02-15 07:19] LABS: ALBUMIN 2.7 g/dL (3.4-5.0); ALKALINE PHOSPHATASE 100 U/L (30-120); ALT (SGPT) 27 U/L (10-68); BILIRUBIN - TOTAL 0.59 mg/dL (0.2-1.3); CALC OSMOLALITY 281 mosm/kg (275-300); CALCIUM 8.5 mg/dL (8.5-10.1); CARBON DIOXIDE 36.1 mmol/L (21.0-32.0); CHLORIDE - SERUM 102 mmol/L (98-107); CREATININE - SERUM 0.5 mg/dL (0.6-1.3); GLUCOSE 123 mg/dL (74-106); MAGNESIUM - SERUM 1.9 mg/dL (1.8-2.4); PHOSPHOROUS 2.7 mg/dL (2.5-4.9); POTASSIUM - SERUM 3.2 mmol/L (3.5-5.1); PROTEIN - SERUM 6.1 g/dL (6.4-8.2); SODIUM 142 mmol/L (136-145); UREA NITROGEN 7 mg/dL (7-18); eGFR NON AFRICAN AMERICAN > 90 mL/min (90-120)
[2021-02-15 08:28] VITALS: BP 117/53
--- NOTE | 2021-02-15 10:59 | NUR ---
RESTING IN BED, NO DISTRESS NOTED, SL TO LFA, CONT TO MONITOR RESP STATUS, O2 PER NC AT 6
[2021-02-15 12:54] VITALS: BP 141/69
[2021-02-15] MEDS ORDERED: NICODERM CQ1 EAC3 TOPICAL (14:31)
--- NOTE | 2021-02-15 15:08 | NUR ---
REVIEWED DC ORDERS WITH PT, VOICED NO CONCERNS, IV REMOVED, TIP INTACT,
--- NOTE | 2021-02-15 16:04 | MORECARE ---
CASE MANAGEMENT DISCHARGE SUMMARY PATIENT: DERIC CARBALLO UNIT: [id number] ADM DATE: 02/12/21 AGE: 55 : 63 SEX: F ROOM/BED: D2227 AUTHOR: CONSTANTIN,DOC PHYSICIAN: REFERRING PHYSICIAN: CHRISTOPHER FLOYD MD DATE OF SERVICE: 02/15/21 Case Management Discharge Planning Summary DCP REVIEW SUMMARY ANTICIPATED D/C DATE: EXPECTED LOS : CASE STATUS: DCP Initiated INITIAL REVIEW: 02/12/2021 INITIAL REVIEWER: Katy Galan FINAL DISCHARGE DISPOSITION: 01 : Home or Self Care (Routine Discharge) FINAL REVIEWER: FINAL REVIEW DATE: DCP Focus Questions & Answers QUESTION: ANSWER : PATIENT: DERIC CARBALLO ENCOUNTER: [id number] MEDICAL RECORD#: [id number] ADMISSION DATE: 02/12/2021 DISCHARGE DATE: 02/15/2021 ATTENDING MD: CHRISTOPHER SANCHEZ : AGE: 55 MARITAL STATUS: M DC PLAN ID: [id number] FACILITY: [facility] PRINTED ON: 02/15/21 16:04 CT All edits/amendments must be made on the electronic document DICTATION DATE: 02/15/211603 CARPENTRY SPECIALIST: LAVON 02/15/21 160 RPT#: [id number] DC DATE:02/15/21 STATUS: DIS IN [facility] [address] [place] [address] END OF REPORT
--- NOTE | 2021-02-15 16:18 | MORECARE ---
CASE MANAGEMENT DISCHARGE SUMMARY PATIENT: DERIC CARBALLO UNIT: [id number] ADM DATE: 02/12/21 AGE: 55 : 63 SEX: F ROOM/BED: D.2227 AUTHOR: CONSTANTIN,DOC PHYSICIAN: REFERRING PHYSICIAN: CHRISTOPHER FLOYD MD DATE OF SERVICE: 02/15/21 Case Management Discharge Planning Summary COMMENTS ENTERED DATE: 02/15/21 16:02 CT COMMENT TYPE: Discharge Planning REVIEWER: Katy Galan CM met with patient to complete initial dc planning assessment. CM educated patient on the CM role and verbal consent given by patient to complete assessment. Patient lives at home where she states she is independent with her care . Her daughter lives with her and will be her electric screw driver operator home. At discharge patient plans to return home and feels this is a safe discharge. CM discussed availability of home health, rehab services, and medical equipment. She has a walker, cane, bsc, triliogy, nebulizer and 4L O2 at home. Her O2 DME is [facility]. She does not want home health she does not think she needs it,. Dr Sands is her pcp and she uses [facility]. Patient denied known discharge needs at this time. CM will continue to follow and will assist as needed with dc plans/needs. DCP REVIEW SUMMARY ANTICIPATED D/C DATE: EXPECTED LOS : CASE STATUS: DCP Initiated INITIAL REVIEW: 02/12/2021 INITIAL REVIEWER: Katy Galan FINAL DISCHARGE DISPOSITION: 01 : Home or Self Care (Routine Discharge) FINAL REVIEWER: FINAL REVIEW DATE: DCP Focus Questions & Answers QUESTION: ANSWER : PATIENT: DERIC CARBALLO ENCOUNTER: [id number] MEDICAL RECORD#: [id number] ADMISSION DATE: 02/12/2021 DISCHARGE DATE: 02/15/2021 ATTENDING MD: CHRISTOPHER SANCHEZ : AGE: 55 MARITAL STATUS: M DC PLAN ID: [id number] FACILITY: [facility] PRINTED ON: 02/15/21 16:18 CT All edits/amendments must be made on the electronic document DICTATION DATE: 02/15/211617 CUSTODIAN: LAVON 02/15/211617 RPT#: [id number] DC DATE:02/15/21 STATUS: DIS IN [facility] [address] [place] [place] [address] END OF REPORT
--- NOTE | 2021-02-15 18:08 | MORECARE ---
CASE MANAGEMENT DISCHARGE SUMMARY PATIENT: DERIC CARBALLO UNIT: [id number] ADM DATE: 02/12/21 AGE: 55 : 63 SEX: F ROOM/BED: D.2227 AUTHOR: CONSTANTIN,DOC PHYSICIAN: REFERRING PHYSICIAN: CHRISTOPHER FLOYD MD DATE OF SERVICE: 02/15/21 Case Management Discharge Planning Summary COMMENTS ENTERED DATE: 02/15/21 16:02 CT COMMENT TYPE: Discharge Planning REVIEWER: Katy Galan CM met with patient to complete initial dc planning assessment. CM educated patient on the CM role and verbal consent given by patient to complete assessment. Patient lives at home where she states she is independent with her care . Her daughter lives with her and will be her regional tanker truck driver home. At discharge patient plans to return home and feels this is a safe discharge. CM discussed availability of home health, rehab services, and medical equipment. She has a walker, cane, bsc, triliogy, nebulizer and 4L O2 at home. Her O2 DME is [facility]. She does not want home health she does not think she needs it,. Dr Sands is her pcp and she uses [facility]. Patient denied known discharge needs at this time. CM will continue to follow and will assist as needed with dc plans/needs. DCP REVIEW SUMMARY ANTICIPATED D/C DATE: EXPECTED LOS : CASE STATUS: DCP Initiated INITIAL REVIEW: 02/12/2021 INITIAL REVIEWER: Katy Galan FINAL DISCHARGE DISPOSITION: 01 : Home or Self Care (Routine Discharge) FINAL REVIEWER: FINAL REVIEW DATE: DCP Focus Questions & Answers QUESTION: ANSWER : PATIENT: DERIC CARBALLO ENCOUNTER: [id number] MEDICAL RECORD#: [id number] ADMISSION DATE: 02/12/2021 DISCHARGE DATE: 02/15/2021 ATTENDING MD: CHRISTOPHER SANCHEZ : AGE: 55 MARITAL STATUS: M DC PLAN ID: [id number] FACILITY: [facility] PRINTED ON: 02/15/21 18:08 CT All edits/amendments must be made on the electronic document DICTATION DATE: 02/15/211807 DISABILITY LIAISON OFFICER: LAVON 02/15/211807 RPT#: [id number] DC DATE:02/15/21 STATUS: DIS IN [facility] [address] [facility] [place] [address] END OF REPORT
== END 2021-02-15 15:12 | disposition home or self-care (01) | DRG 189 ==
LOC: D.ER 21:15 → D.EDHOLD 23:44 → D.ICU 23:44 → D.MS 02-14 15:40
PROVIDERS: Family Medicine; ADMIT Emergency Medicine; ATTEND Emergency Medicine
PROC: 5A09357 Assistance with Respiratory Ventilation, Less than 24 Consecutive Hours, Continuous Positive Airway Pressure (ICD-10-PCS; principal; 2021-02-12)
DX: J96.22 Acute and chronic respiratory failure with hypercapnia (principal); G93.41 Metabolic encephalopathy; I50.33 Acute on chronic diastolic (congestive) heart failure; Z68.43 Body mass index [BMI] 50.0-59.9, adult; Z91.19 Patient's noncompliance with other medical treatment and regimen; I11.0 Hypertensive heart disease with heart failure; E78.5 Hyperlipidemia, unspecified; E11.9 Type 2 diabetes mellitus without complications; G25.81 Restless legs syndrome; K21.9 Gastro-esophageal reflux disease without esophagitis; Z79.84 Long term (current) use of oral hypoglycemic drugs; Z79.01 Long term (current) use of anticoagulants; F41.8 Other specified anxiety disorders; E66.01 Morbid (severe) obesity due to excess calories; J96.21 Acute and chronic respiratory failure with hypoxia; F17.200 Nicotine dependence, unspecified, uncomplicated; I48.0 Paroxysmal atrial fibrillation

== ENCOUNTER 2021-03-20 15:47 | Emergency (ER) | payer MEDICAID ==
[~2021-03-20] VITALS: Ht 160 cm; Wt 136.4 kg
[~2021-03-20 15:47] MED LIST changes: +NICODERM CQ1 EAC3 TOPICAL
[2021-03-20 15:50] VITALS: Ht 160 cm; Wt 136.4 kg
[2021-03-20 16:17] VITALS: BP 98/40
== END 2021-03-20 18:13 | disposition home or self-care (01) ==
LOC: D.ER 15:47
DX: G56.20 Lesion of ulnar nerve, unspecified upper limb (principal); I10 Essential (primary) hypertension; R20.0 Anesthesia of skin

== ENCOUNTER 2021-04-04 22:10 | Inpatient (IN) | payer MEDICAID ==
[~2021-04-04] VITALS: Ht 160 cm; Wt 141.1 kg
[2021-04-04 23:43] VITALS: BP 90/42
[2021-04-05 00:02] LABS: BASOPHILS 0.7 % (0-2); EOSINOPHILS 2.7 % (0-7); HEMATOCRIT 35.2 % (36.0-48.0); HEMOGLOBIN 10.2 g/dL (12-16); LYMPHOCYTES 21.4 % (15-50); MCH 21.5 pg (26.0-34.0); MCHC 28.9 g/dL (31.0-37.0); MCV 74.2 fL (80.0-100.0); MONOCYTES 11.3 % (2-11); NEUTROPHILS 63.9 % (40-80); RBC 4.74 10x6/uL (4.00-5.40); RDW 22.4 % (11.5-14.5); WBC 10.2 10x3/uL (4.8-10.8)
[2021-04-05 00:06] LABS: PLATELET COUNT 396 10x3/uL (130-400)
[2021-04-05 00:12] LABS: CALC OSMOLALITY 270 mosm/kg (275-300); CALCIUM 8.3 mg/dL (8.5-10.1); CARBON DIOXIDE 37.7 mmol/L (21.0-32.0); CHLORIDE - SERUM 99 mmol/L (98-107); POTASSIUM - SERUM 4.2 mmol/L (3.5-5.1); SODIUM 137 mmol/L (136-145); UREA NITROGEN 10 mg/dL (7-18); eGFR NON AFRICAN AMERICAN 61 mL/min (90-120)
[2021-04-05 00:18] LABS: GLUCOSE 67 mg/dL (74-106)
[2021-04-05 00:26] LABS: ALBUMIN 2.8 g/dL (3.4-5.0); ALKALINE PHOSPHATASE 117 U/L (30-120); ALT (SGPT) 27 U/L (10-68); BILIRUBIN - TOTAL 0.51 mg/dL (0.2-1.3); LIPASE 50 U/L (73-393); MAGNESIUM - SERUM 1.8 mg/dL (1.8-2.4); PRO BNP 4482 pg/mL (0-125); PROTEIN - SERUM 6.8 g/dL (6.4-8.2); TROPONIN-I < 0.017 ng/mL (0.000-0.060)
[2021-04-05 00:28] VITALS: BP 110/56
--- NOTE | 2021-04-05 02:49 | NUR ---
REPORT GIVEN TO EULALIO RAMIREZ
[2021-04-05 05:50] VITALS: BP 105/57
[2021-04-05 08:00] VITALS: BP 128/76
--- NOTE | 2021-04-05 08:35 | NUR ---
PT AWAKE, AMB TO BR INDEPENDENTLY. BACK TO BED/POSITION OF COMFORT. BS CKD= 49MG/DL MED WITH PRN HYPOGLYCEMIC ORDERS
--- NOTE | 2021-04-05 09:46 | NUR ---
REPEAT FSBS = 65MG/DL MED PER PRN ORDERS. PT A/A/OX3. SKIN W//D/P. SPEECH CLEAR, NO C/O ON O2 @ 4L PNC SATS 96%
--- NOTE | 2021-04-05 10:04 | NUR ---
DR FLOYD HERE. REPORTED LOW BS'S. VO RCVD TO PLACE ON ADA DIET. MEAL TRAY SERVED. APPETITE GOOD
--- NOTE | 2021-04-05 11:08 | NUR ---
FSBS= 82 MG/DL
[2021-04-05 13:00] VITALS: BP 118/76
[2021-04-05] MEDS ORDERED: ROPINIROLE HCL0.5 MG PO (15:14)
--- NOTE | 2021-04-05 16:00 | NUR ---
REPORT TO NURSE ROB
[2021-04-05 16:32] VITALS: BP 128/76; BMI 53.2
[2021-04-05 18:01] LABS: BILIRUBIN NEGATIVE (NEGATIVE); KETONE NEGATIVE mg/dL (< 1+); NITRITE NEGATIVE (NEGATIVE); UROBILINOGEN NORMAL mg/dL (< 2)
[2021-04-05 18:14] LABS: UDS - AMPHET NEGATIVE QUAL (NEGATIVE); UDS - BARB NEGATIVE QUAL (NEGATIVE); UDS - BENZO NEGATIVE QUAL (NEGATIVE); UDS - COCAINE NEGATIVE QUAL (NEGATIVE); UDS - OPIATE NEGATIVE QUAL (NEGATIVE); UDS - PCP NEGATIVE QUAL (NEGATIVE); UDS - THC NEGATIVE QUAL (NEGATIVE)
--- NOTE | 2021-04-05 20:35 | NUR ---
NOTIFIED SCOTT YANES THAT PT NEEDS TELEMETRY.
--- NOTE | 2021-04-05 20:41 | NUR ---
INFORMED BY JOAQUÍN SCOTT, LISA SUPPERVISOR TOLD HER THAT "WE ARE DOING TELEMERTY NURSING PROTOCOL, DUE TO SHORTAGE OF TELEMERTY UNITS" AND PER TELEMERTY PROTOCOL, STATED BY MARSHA GONZALEZ SUPP. PT DOESNT QUILFY FOR TELEMETRY.
[2021-04-06] VITALS (8 sets, daily range): BP systolic 99–124; BP diastolic 28–53; Ht 160 cm; Wt 141.1 kg
--- NOTE | 2021-04-06 04:05 | NUR ---
I have reviewed this patient and I concur with the Shift Assessment completed by the Licensed Practical Nurse today this shift.
--- NOTE | 2021-04-06 06:30 | NUR ---
RECEIVED BED SIDE REPORT PATIENT AWAKE AND ALERT. NO CURRENT COMPLAINTS IV TO LEFT AC PATIENT. CONTINUES ON 4L NASAL CANNULA WITH NO SHORTNESS OF BREATH.
[2021-04-06 06:32] LABS: BASOPHILS 0.5 % (0-2); EOSINOPHILS 3.5 % (0-7); HEMATOCRIT 33.6 % (36.0-48.0); HEMOGLOBIN 9.6 g/dL (12-16); LYMPHOCYTES 23.8 % (15-50); MCH 21.4 pg (26.0-34.0); MCHC 28.5 g/dL (31.0-37.0); MCV 75.2 fL (80.0-100.0); MEAN PLATELET VOLUME 6.9 fL (7.4-10.4); MONOCYTES 8.7 % (2-11); NEUTROPHILS 63.5 % (40-80); PLATELET COUNT 339 10x3/uL (130-400); RBC 4.47 10x6/uL (4.00-5.40); RDW 22.6 % (11.5-14.5); WBC 8.2 10x3/uL (4.8-10.8)
[2021-04-06 06:37] LABS: ALBUMIN 2.7 g/dL (3.4-5.0); ALKALINE PHOSPHATASE 108 U/L (30-120); AMYLASE - SERUM 21 U/L (25-115); BILIRUBIN - INDIRECT 0.33 mg/dL (0.00-1.00); BILIRUBIN - TOTAL 0.53 mg/dL (0.2-1.3); CARBON DIOXIDE 38.8 mmol/L (21.0-32.0); CHLORIDE - SERUM 100 mmol/L (98-107); CREATININE - SERUM 0.8 mg/dL (0.6-1.3); LIPASE 60 U/L (73-393); MAGNESIUM - SERUM 1.8 mg/dL (1.8-2.4); PHOSPHOROUS 4.2 mg/dL (2.5-4.9); POTASSIUM - SERUM 3.6 mmol/L (3.5-5.1); PROTEIN - SERUM 6.3 g/dL (6.4-8.2); SODIUM 140 mmol/L (136-145); UREA NITROGEN 8 mg/dL (7-18); eGFR NON AFRICAN AMERICAN 78 mL/min (90-120)
[2021-04-06 06:40] LABS: ALT (SGPT) 17 U/L (10-68); CALC OSMOLALITY 274 mosm/kg (275-300); GLUCOSE 58 mg/dL (74-106)
--- NOTE | 2021-04-06 10:22 | NUR ---
PATIENT SITTING ON EDGE OF BED. O2 SATS 97 ON 4 L. ABOUT TO TAKE SHOWER. NO CURRENT COMPLAINTS. LUNG SOUNDS DIMINISHED TO LOWER LEFT LOBE. RESP EVEN AND UNLABORED. ABDOMEN SOFT AND NON TENDER. HEART SOUNDS REGULAR RATE AND RYTHYM. UP AT [place]. ABLE TO CARE FOR SELF.
[2021-04-06] MEDS ORDERED: REQUIP0.25 MG PO (11:11)
--- NOTE | 2021-04-06 19:57 | NUR ---
PT ASKING FOR FAN, CALLED LISA SUPPERVISOR JAMES, JAMES STATED THAT WE DO NOT HAVE ANY FANS TO GIVE THE PTS AND THAT [facility]K SAID THAT THEY FIXED THE PROBLEM WITH AIR CONDITIONING AND IT WILL TAKE SOME TIME TO COOL DOWN. INFORMED PT OF WHAT THE LISA SUP. SAID.
--- NOTE | 2021-04-06 21:43 | NUR ---
PT ASKING FOR AMA PAPERS BECAUSE HER ROOM IS TOO HOT, INFORMED BRYAN HIDALGO APN AND LISA RAMIREZ STATED THAT SHE WAS BUSY IN THE ER AND CANT COME TALK TO PT AT THIS MOMENT.
--- NOTE | 2021-04-06 22:15 | NUR ---
AFTER SEARCHING MS, CENTRAL SUPPLY, MED 3 AND ICU THIS NURSE FOUND A SMALL FAN IN CVICU TO CLIP ON THE SIDE OF PTS BED, PT AGREED TO STAY SINCE THIS NURSE FOUND HER A FAN.
[2021-04-07 02:22] VITALS: BP 105/62
[2021-04-07 06:21] LABS: BASOPHILS 0.2 % (0-2); EOSINOPHILS 0 % (0-7); HEMATOCRIT 33.1 % (36.0-48.0); HEMOGLOBIN 9.7 g/dL (12-16); LYMPHOCYTES 11.1 % (15-50); MCH 21.6 pg (26.0-34.0); MCHC 29.3 g/dL (31.0-37.0); MCV 73.9 fL (80.0-100.0); MEAN PLATELET VOLUME 6.8 fL (7.4-10.4); MONOCYTES 4.9 % (2-11); NEUTROPHILS 83.8 % (40-80); PLATELET COUNT 327 10x3/uL (130-400); RBC 4.48 10x6/uL (4.00-5.40); RDW 21.8 % (11.5-14.5); WBC 9.1 10x3/uL (4.8-10.8)
[2021-04-07 06:27] LABS: ALBUMIN 2.8 g/dL (3.4-5.0); ANION GAP 7.4 mmol/L (8-16); BILIRUBIN - TOTAL 0.63 mg/dL (0.2-1.3); CALCIUM 8.3 mg/dL (8.5-10.1); CARBON DIOXIDE 36.5 mmol/L (21.0-32.0); CREATININE - SERUM 0.9 mg/dL (0.6-1.3); MAGNESIUM - SERUM 2.1 mg/dL (1.8-2.4); PHOSPHOROUS 3.6 mg/dL (2.5-4.9); POTASSIUM - SERUM 3.9 mmol/L (3.5-5.1); PROTEIN - SERUM 6.5 g/dL (6.4-8.2)
--- NOTE | 2021-04-07 06:30 | NUR ---
RECEIVED BEDSIDE REPORT PATIENT RESTING COMFORTABLY, O2 AT 4L VIA NASAL CANNULA RESP EVEN AND UNLABORED. IV TO RIGHT FOREARM SALINE LOCKED.
[2021-04-07 09:25] VITALS: BP 136/67
[2021-04-07] MEDS ORDERED: ZYRTEC10 MG PO (09:37)
--- NOTE | 2021-04-07 09:39 | NUR ---
PATIENT AWAKE AND ALERT. NO CURRENT COMPLAINTS AT THIS TIME. RESP EVEN AND UNLABORED ON 4L NASAL CANNULA. LUNG SOUNDS DIMINISHED IN LOWER LOBES. CRACKLES NOTED TO UPPER LOBES. HEART SOUNDS REGULAR RATE AND RYTHYM. TELE IN PLACE. PATIENT READY TO GO HOME.
[2021-04-07] MEDS ORDERED: MIRALAX17 GM PO (11:09)
[2021-04-07] MEDS ORDERED: Senokot-S Tablet PO (11:09)
[2021-04-07] MEDS ORDERED: PREDNISONE20 MG PO (11:11)
[2021-04-07 11:26] VITALS: BP 120/40
--- NOTE | 2021-04-07 12:45 | NUR ---
UP SOB EATING LUNCH. RESP UN OS . CALL LIGHT IN REACH.
--- NOTE | 2021-04-09 17:37 | MORECARE ---
CASE MANAGEMENT DISCHARGE SUMMARY PATIENT: DERIC CARBALLO UNIT: [id number] ADM DATE: 04/05/21 AGE: 55 : 63 SEX: F ROOM/BED: 2129 AUTHOR: CONSTANTINDOC PHYSICIAN: REFERRING PHYSICIAN: PIPER MASON MD DATE OF SERVICE: 04/09/21 Case Management Discharge Planning Summary DCP REVIEW SUMMARY ANTICIPATED D/C DATE: EXPECTED LOS : CASE STATUS: DCP Complete INITIAL REVIEW: 04/05/2021 INITIAL REVIEWER: Antonina Mosher FINAL DISCHARGE DISPOSITION: : FINAL REVIEWER: FINAL REVIEW DATE: DCP Focus Questions & Answers QUESTION: ANSWER : PATIENT: DERIC CARBALLO ENCOUNTER: [id number] MEDICAL RECORD#: [id number] ADMISSION DATE: 04/05/2021 DISCHARGE DATE: 04/07/2021 ATTENDING MD: AILYN: AGE: 55 MARITAL STATUS: M DC PLAN ID: [id number] FACILITY: [facility] PRINTED ON: 04/09/21 17:37 CT All edits/amendments must be made on the electronic document DICTATION DATE: 04/09/211736 STONE CHIMNEY MASON: LAVON 04/09/211736 RPT#: [id number] DC DATE:04/07/21 STATUS: DIS IN [facility] [address] [place] [address] END OF REPORT
== END 2021-04-07 13:05 | disposition home or self-care (01) | DRG 189 ==
LOC: D.ER 22:10 → D.EDHOLD 04-05 01:40 → D.M2 04-05 01:40
PROVIDERS: Emergency Medicine; Family Medicine; ADMIT Family Medicine; ATTEND Family Medicine
PROC: 5A09357 Assistance with Respiratory Ventilation, Less than 24 Consecutive Hours, Continuous Positive Airway Pressure (ICD-10-PCS; principal; 2021-04-05)
DX: J96.12 Chronic respiratory failure with hypercapnia (principal); I50.33 Acute on chronic diastolic (congestive) heart failure; Z68.43 Body mass index [BMI] 50.0-59.9, adult; J96.11 Chronic respiratory failure with hypoxia; I48.0 Paroxysmal atrial fibrillation; J30.9 Allergic rhinitis, unspecified; G47.33 Obstructive sleep apnea (adult) (pediatric); F17.200 Nicotine dependence, unspecified, uncomplicated; E11.9 Type 2 diabetes mellitus without complications; I10 Essential (primary) hypertension; E78.5 Hyperlipidemia, unspecified; R53.81 Other malaise; F41.8 Other specified anxiety disorders; K21.9 Gastro-esophageal reflux disease without esophagitis; E66.9 Obesity, unspecified; I11.0 Hypertensive heart disease with heart failure; D50.9 Iron deficiency anemia, unspecified